=== PATIENT | female | born 1955 | race Caucasian/White ===

== ENCOUNTER 2018-09-10 11:12 | Outpatient (CLI) | payer OTHER, SELFPAY ==
--- NOTE | 2018-09-10 11:05 | DI.RAD_ITS ---
SYMPTOM/DIAGNOSIS: PRE NORBERTO RIGHT HIP: A single AP view of the right hip was obtained. Comparison is made with . At the right hip, there is mild joint space narrowing, subchondral sclerosis and periarticular osteophytes arising from the acetabulum and femoral head. The bones are normally aligned. The soft tissues are unremarkable. Surgical clips are again seen in the right pelvis. IMPRESSION: Limited examination showing osteoarthritis of the right hip.
== END 2018-09-10 11:32 ==
PROVIDERS: PCP Internal Medicine Interventional Cardiology; Visit Provider Student in an Organized Health Care Education/Training Program
DX: M25.551 Pain in right hip (principal); M16.11 Unilateral primary osteoarthritis, right hip
CPT/HCPCS: 73501

== ENCOUNTER 2018-12-20 15:20 | Observation (INO) | payer OTHER, SELFPAY ==
[2018-12-20] VITALS (44 sets, daily range): BP systolic 124–167; BP diastolic 67–82; PULSE 57–81; RESP 9–34; TEMP 36.3–36.8; O2SAT 92–100
--- NOTE | 2018-12-20 15:42 | W.ED.GENAD ---
Discharge Plan Disposition Patient Disposition: [facility] INPATIENT Condition: Good Discharge Details Chief Complaint: Chest Pain Clinical Impression: Chest pain Reason For Visit: chest pain Primary Care Provider: Lawrence Montelongo ED Provider: Daniele Xavier Rotan Meds and New Rx's Prescriptions: No Action rosuvastatin [Crestor] 20 mg tablet 20 mg PO DAILY RF: 0 citalopram 10 mg tablet 10 mg PO DAILY RF: 0 Womens multivitamin 1 tab PO DAILY RF: 0 calcium carbonate 600 MG tablet 600 mg PO DAILY RF: 0 omeprazole [Prilosec] 20 MG capsule,delayed release(DR/EC) 20 mg PO DAILY RF: 0 vitamin B complex 1 EACH capsule 1 ea PO DAILY RF: 0 metoprolol succinate [Toprol XL] 25 MG tablet extended release 24 hr 12.5 mg PO BID RF: 0 temazepam 15 MG capsule 15 mg PO HS Qty: 30 RF: 0 aspirin 325 mg tablet 81 mg PO DAILY RF: 0 tramadol 50 mg tablet 100 mg PO ONCE PRNQty: 30 RF: 0 albuterol sulfate 8.5 GM HFA aerosol inhaler 1 puff .Route PRN PRNRF: 0 gabapentin 300 mg Capsule 300 mg PO HS RF: 0 gabapentin 100 mg Capsule 200 mg PO DAILY AM RF: 0 omeprazole 20 mg Capsule,Delayed Release(Dr/Ec) 20 mg PO HS RF: 0 Medical Decision Making Patient presenting to ED with xiphoid/epigastric pain radiating through to the back, sudden in onset. She does have a history of coronary disease with 2 previous non-STEMI's. She does not have stents. She is recently come off Plavix. Her initial EKG does not show any acute changes. Must consider dissection. Less likely PE. Rule out ACS. IV established. Laboratory studies drawn and sent. CT scan of the chest abdomen pelvis to evaluate for dissection and pulmonary embolus ordered. She was given one sublingual nitroglycerin. The one sublingual nitro resolved all of her pain. There has been no recurrence. Laboratory studies are unremarkable. First troponin is negative. CTA is negative for dissection. There is no evidence of PE. Essentially unremarkable CT scan. Second EKG and troponin are pending. However, given the patient's previous history of atypical presentations with non-STEMI's, I do think she should be admitted overnight for observation and trending. I am going to give her 324 chewable aspirin. Case is discussed with hospitalist, Dr. Rios. Patient accepted for admission. Second EKG is unchanged from one done earlier. Second troponin pending and will follow this up. She remained pain-free here. Medical Records Medical records reviewed: Yes I reviewed the patient's medical records. Lab Data Lab results reviewed: Yes I reviewed the patient's lab results. ECG Data Attestation: I personally reviewed and interpreted this ECG (s) as follows: Prior ECG tracings: available for review Interpretation: #1 - Sinus rhythm at 64. Normal axis and intervals. No acute changes noted. Specifically no hyper acute T waves or mild ST elevation as there was in October 2017. #2-sinus rhythm at 75. Normal axis and intervals. No change compared to earlier today. HPI General Mode of arrival: ambulatory. Date/Time Provider Initiated Documentation: 12/20/18 15:30. Limitations to Documentation: no limitations. Information obtained by: patient and old records reviewed. 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 She developed lower xiphoid/epigastric pain that radiated straight through to the back. It was rather intense when it started and has been waxing and waning since. Pain has been ongoing for about 20 minutes prior to arrival. She does have known coronary disease with 2 previous non-STEMI's but no stents in the past. She has come off Plavix. She continues on statin and beta-janine. She has no associated symptoms and does not feel lightheaded, sweaty, short of breath, nauseated. She feels a little better now than she did when it first started. She has not been ill prior. There is been no fever or cough. Related Data Home Medications Medication Instructions Recorded Confirmed Womens Multivitamin 1 tab PO DAILY 03/07/13 12/20/18 albuterol sulfate 1 puff .ROUTE PRN PRN 08/09/14 11/08/18 calcium carbonate 600 mg PO DAILY 07/02/15 12/20/18 omeprazole [Prilosec] 20 mg PO DAILY 07/02/15 12/20/18 vitamin B complex 1 ea PO DAILY 03/04/17 12/20/18 metoprolol succinate [Toprol Xl] 12.5 mg PO BID tab-cap 07/15/17 12/20/18 temazepam 15 mg PO HS #30 tab-cap 10/30/17 12/20/18 aspirin 325 mg tablet 81 mg PO DAILY tab-cap 11/08/18 12/20/18 citalopram 10 mg tablet 10 mg PO DAILY 11/08/18 12/20/18 rosuvastatin 20 mg tablet 20 mg PO DAILY 11/08/18 12/20/18 tramadol 50 mg tablet 100 mg PO ONCE PRN #30 tab-cap 11/08/18 12/20/18 gabapentin 200 mg PO DAILY AM 12/20/18 12/20/18 gabapentin 300 mg PO HS 12/20/18 12/20/18 omeprazole 20 mg PO HS 12/20/18 12/20/18 Previous Rx's Medication Instructions Recorded temazepam 15 mg PO HS #30 tab-cap 10/30/17 Allergies Allergy/AdvReac Type Severity Reaction Status Date / Time amoxicillin Allergy Intermediate HIVES Unverified 12/20/18 15:34 Penicillins Allergy Intermediate HIVES Unverified 12/20/18 15:34 cephalexin monohydrate Allergy Skin Rash Unverified 12/20/18 15:34 [From Keflex] codeine [Codeine] AdvReac Mild ABDOMINAL Unverified 12/20/18 15:34 PAIN General Stated Complaint: Chest Pain 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: 2 Review of Systems Constitutional Denies chills, Denies fever(s), Denies headache(s), Denies lethargy, Denies malaise, Denies poor appetite and Denies weakness Eyes Denies change in vision and Denies eye pain ENT Denies otalgia, Denies facial pain, Denies headache(s) and Denies neck pain Cardiovascular Reports chest pain, Denies diaphoresis, Denies syncope, Denies pedal edema, Denies lightheadedness and Denies dyspnea Respiratory Denies cough and Denies dyspnea Gastrointestinal Reports abdominal pain, Denies diarrhea, Denies nausea and Denies vomiting Genitourinary Denies dysuria and Denies pelvic pain Musculoskeletal Reports back pain, Denies neck pain and Denies numbness Integumentary/Breasts Denies rash Neurologic Denies syncope, Denies headache(s), Denies focal weakness, Denies numbness, Denies paresthesias and Denies weakness [facility] Medical History Asthma CAD (coronary artery disease) Infiltrating ductal carcinoma of breast, stage 1 Surgical History Breast, Mastectomy Bilateral Cervical Procedure Social History Smoking/Tobacco Use Status: Former Tobacco Use Alcohol Intake: never Drug use: Never Substance use type: does not use Do you feel safe at home: Yes Do you feel safe in your relationship?: Yes Exam Const General: cooperative, uncomfortable and no acute distress Orientation: alert and oriented x3 HENMT Head: normocephalic and atraumatic Neck Neck: normal visual inspection, trachea midline and supple Chest Chest: no tenderness Resp Effort & Inspection: normal respiratory effort Auscultation: clear to auscultation bilaterally Cardio Rate: regular rate Rhythm: regular rhythm Heart Sounds: S1 normal and S2 normal Pulses: normal peripheral pulses GI Inspection: normal to inspection and non-distended Palpation: soft, not firm and nontender Skin Rashes: no rashes Neuro General: alert, oriented x3, no focal motor deficits and CN's II-XI intact bilaterally Cognition: normal cognition Speech: speech normal Extrem General: no pedal edema and no calf tenderness Course Vital Signs Temperature 97.3 F L 12/20/18 15:29 Pulse 68 12/20/18 15:29 Respiratory Rate 20 12/20/18 15:29 Blood Pressure 156/82 H 12/20/18 15:29 Pulse Oximetry 100 12/20/18 15:29 Temperature 97.3 F L 12/20/18 15:29 Temperature Source Tympanic 12/20/18 15:29 Pulse 68 12/20/18 15:29 Respiratory Rate 20 12/20/18 15:29 Respiratory Effort 12/20/18 15:33 Blood Pressure 156/82 H 12/20/18 15:29 Pulse Oximetry 100 12/20/18 15:29 Oxygen Delivery Method Room Air 12/20/18 15:29 Oxygen Flow Rate 0 12/20/18 15:29 Comment 12/20/18 15:29
--- NOTE | 2018-12-20 15:54 | DI.CT_ITS ---
SYMPTOM/DIAGNOSIS: UPPER ABDOMEN/CHEST PAIN RADIATING THROUGH BACK. CT CHEST, ABDOMEN AND PELVIS: The study was carried out with an intravenous injection of 125 cc Omnipaque 350. There is no evidence of pulmonary embolic disease. There is no evidence of an aortic aneurysm or dissection. The lungs are well expanded and clear with no evidence of a mass. There is no pleural effusion or pneumothorax. The heart size is within normal limits. There is no pericardial effusion. A moderate size hiatus hernia is noted. There are no evidence of enlarged lymph nodes. No acute bony abnormality is seen. Incidental note is made of a right breast implant. A 6.8 x 3.6 cm mass in the subcutaneous fat posteriorly on the right side is demonstrated and could I suppose represent a hematoma, infection or neoplasm. SUMMARY: No evidence of PE. No evidence of an aneurysm or aortic dissection. CTA ABDOMEN AND PELVIS: CT angiography was performed with multi slice acquisition and multi planar and 3D reconstruction. Atherosclerotic changes are noted in the aorta. There is no evidence of occlusion involving the mesenteric arteries or celiac access. The renal arteries are intact. The iliac arteries are unremarkable. The liver is unremarkable. There is no evidence of cholelithiasis. There is no evidence of biliary obstruction. The pancreas, spleen and adrenals are unremarkable. The kidneys and stomach appear intact. There is no evidence of obstruction. There is no evidence of an acute appendix. The bladder is normal. The reproductive organs as visualized are intact. There is no evidence of free air or free fluid in the intraperitoneal space. There is no evidence of an abdominal or pelvic mass or adenopathy No acute bony abnormality is seen. SUMMARY: The CTA of the abdomen and pelvis is within normal limits. Please see the above discussion.
[2018-12-20] MEDS: Normal Saline 1,000 ML 150 ML IV (15:56)
[2018-12-20 16:01] LABS: Abs Immature Grans 0.02 k/cumm (0.0-0.09); Absolute Basophil Count 0.03 k/cumm (0.0-0.2); Absolute Lymphocyte Count 3.84 k/cumm (1.2-3.4); Absolute Monocyte Count 0.69 k/cumm (0.11-0.7); Absolute Neutrophil Count 4.65 k/cumm (1.2-6.7); Basophils % 0.3; Eosinophils % 2.1; HCT 40.4 % (36.0-46.0); HGB 13.7 g/dL (12.0-15.5); Immature Grans % 0.2; Lymphocytes % 40.7; Mean Corp. HGB Concentration 33.9 g/dL (32.0-36.0); Mean Corpuscular Hemoglobin 30.9 pg (27.0-33.0); Mean Corpuscular Volume 91.2 fL (80-95); Mean Platelet Volume 10.3 fL (8.0-11.0); Monocytes % 7.3; Neutrophils % 49.4; Platelet Count 180 x1000/uL (130-400); RBC 4.43 m/cumm (4.00-5.20); RBC Distribution Width 12.9 % (11.7-14.6); White Blood Cell Count 9.43 k/cumm (4.4-10.8)
[2018-12-20 16:18] LABS: ALT 25 U/L (12-78); AST 18 U/L (15-37); Alkaline Phosphatase 79 U/L (46-116); Anion Gap 8.7 mmol/L (3-11); BUN 15 mg/dL (7-18); Bilirubin, Total 0.2 mg/dL (0.2-1.0); CO2 28.3 mmol/L (21.0-32.0); CREATININE 0.85 mg/dL (0.55-1.02); Calcium 8.8 mg/dL (8.5-10.1); Chloride 99 mmol/L (98-107); Glucose 89 mg/dL (70-100); Magnesium 2.3 mg/dL (1.8-2.4); Potassium 3.3 mmol/L (3.5-5.1); Sodium 136 mmol/L (136-145); Total Protein 7.3 g/dL (6.4-8.2)
[2018-12-20 16:25] LABS: Troponin I < 0.02 ng/mL (0.00-0.06)
[2018-12-20] MEDS: Omnipaque 350 MG/ML 100 ML BTL IJ (17:15)
[2018-12-20] MEDS: Omnipaque 350 MG/ML 50 ML BTL 25 ML IJ (17:15)
--- NOTE | 2018-12-20 18:31 | DI.VRAD_ITS ---
EXAM: CT Angiography Chest With Contrast EXAM DATE/TIME: 12/20/2018 3:55 PM CLINICAL HISTORY: 63 years old, female; Pain; Chest pain; Abdominal pain; Other: Upper; Patient HX: Upper abd/chest pain radiating through back TECHNIQUE: Axial computed tomographic angiography images of the chest with intravenous contrast using CT angiography protocol. Coronal and sagittal reformatted images were created and reviewed. MIP reconstructed images were created and reviewed. COMPARISON: CR PORTABLE CHEST ONE VIEW 10/22/2017 6:55 AM FINDINGS: Pulmonary arteries: No evidence of pulmonary embolus to the segmental level. Aorta: No aneurysm of the aorta. No dissection of the aorta. Lungs: Normal. No consolidation. No masses. Pleural space: Normal. No pneumothorax. No pleural effusion. Heart: Normal. No cardiomegaly. No pericardial effusion. Mediastinum: Moderate hiatal hernia Lymph nodes: Unremarkable. No enlarged lymph nodes. Bones/joints: Unremarkable. No acute fracture. Soft tissues: Right breast augmentation. 6.8 x 3.6 cm mass in the subcutaneous fat posteriorly on the right. 27 Hounsfield units (2: 38-54). May represent hematoma, infection, neoplasm Impression. IMPRESSION: 1. No evidence of pulmonary embolus to the segmental level. 2. No aneurysm of the aorta. 3. No dissection of the aorta. EXAM: CT Angiography Abdomen and Pelvis With Contrast EXAM DATE/TIME: 12/20/2018 3:55 PM CLINICAL HISTORY: 63 years old, female; Pain; Chest pain; Abdominal pain; Other: Upper; Patient HX: Upper abd/chest pain radiating through back TECHNIQUE: Axial computed tomographic angiography images of the abdomen and pelvis with intravenous contrast material, including non-contrast images if performed. Coronal and sagittal reformatted images were created and reviewed. MIP reconstructed images were created and reviewed. COMPARISON: CR PORTABLE CHEST ONE VIEW 10/22/2017 6:55 AM FINDINGS: VASCULATURE: Aorta: No aortic aneurysm. No aortic dissection. Celiac trunk and mesenteric arteries: No occlusion or significant stenosis. Renal arteries: No occlusion or significant stenosis. Right iliac arteries: No occlusion or significant stenosis. Left iliac arteries: No occlusion or significant stenosis. ABDOMEN: Liver: No mass. Gallbladder and bile ducts: Unremarkable. No calcified stones. No ductal dilation. Pancreas: Unremarkable. No mass. No ductal dilation. Spleen: Unremarkable. No splenomegaly. Adrenals: Unremarkable. No mass. Kidneys and ureters: Unremarkable. No solid mass. No hydronephrosis. Stomach and bowel: Unremarkable. No obstruction. No mucosal thickening. Appendix: No evidence of appendicitis. PELVIS: Bladder: Unremarkable. No mass. Reproductive: Unremarkable as visualized. ABDOMEN and PELVIS: Intraperitoneal space: Unremarkable. No free air. No significant fluid collection. Bones/joints: No acute fracture. No dislocation. Soft tissues: Unremarkable. Lymph nodes: Unremarkable. No enlarged lymph nodes. IMPRESSION: Unremarkable CTA abdomen pelvis. Dictated and Authenticated by: Tena Gotti MD. Ordering:RACHEL Sanabria MD
[2018-12-20 19:32] LABS: Troponin I < 0.02 ng/mL (0.00-0.06)
[2018-12-20] MEDS: Aspirin 81 MG CHEW 324 MG CH (19:40)
[2018-12-20] MEDS: Omeprazole 20 MG CAPCR PO (21:54)
[2018-12-20] MEDS: traMADol 50 MG TAB 100 MG PO (21:55)
[2018-12-20] MEDS: Gabapentin 300 MG CAP PO (21:57)
[2018-12-20] MEDS: Enoxaparin 40 MG/0.4 ML SYR SC (21:57)
[2018-12-20] MEDS: Temazepam 15 MG CAP PO (21:58)
[2018-12-20] MEDS: Normal Saline Flush 10 ML SYR IVP (21:58)
--- NOTE | 2018-12-20 22:34 | HPE_ITS ---
Date of service: 12/20/18 Time of Service: 22:34 Assessment and Plan (1) Atypical chest pain: Current visit: Yes Status: Acute although there is some atypical features to her chest pain and the follow up episode was not chest pain per se, there is concern for coronary spasms given the subtle ST-T changes on repeat EKG's. She has hx of NSTEMI twice now (2013 and Oct 2017) without any hemodynamically significant stenoses. 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 and arrange follow up stress MPI. If MPI is negative then continue aggressive management w/ statins, antiplatelets. consider changing beta janine to calcium channel janine however, I would check with her ice cream freezer assistant first. I do not feel that she needs heparin drip at this point. History of Present Illness Chief Complaint: chest pain Narrative: 63 yr old female w/ PMH of non- obstructive CAD found after NSTEMI in 2013 and again in 2017. Patient has been on medical treatment since her cardiac cath in 2017 at [facility] in [place], [place]. She recently came off her Plavix about a month ago. She follows locally with her ice cream freezer assistant, Dr. Aleyda Morel who cleared her for hip surgery. This afternoon she presented to the ER from her 's office (she works with her , Dr. Bertrand) when she developed acute, sharp subs ternal/epigastric pain that radiated into her back. No associated diaphoresis, nor any neck or jaw pain nor arm pains. Her CP/epigastric pain was alleviated w/ single sublingual nitroglycerin administered in the ER. Total time of her discomfort was around 15 to 20 minutes. Her workup in the ER included two EKG's that failed to show any ischemic ST-T changes and her troponin was negative x two sets in the ER. She was admitted for obseration and to set her up for stress MPI. CTA of the chest was performed and negative for PE or TAA/AAA. After admission to the ICU (admitted to ICU as telemetry patient as none were available on med/surg), she developed some atypical feelings in her torso, that she described as a coolness and out of body sensation along w/ tingling in her arms and chattering of her teeth. There was no chest pain or pressure per se but repeat EKG demonstrated subtle 0.5 mm to [address] depression in inferolateral leads II, aVF, V4-V6. These resolved after two nitroglycerin tablets. She also developed leg spasms (which she has had before and for which she takes gabapentin). She was treated w/ iv valium and also given benadryl in the event that her symptoms may have been related to delayed reaction to the iv contrast for her CTA. She remained free of any chest pain or pressure and her vague feeling of out of body experience and coolness in her torso (from groin up to t he neck) was resolving even before the benadryl and valium were given. Follow up troponin was normal. Review of Systems Review of Systems All systems reviewed & are unremarkable except as noted in HPI and below PFSH Medical History Anxiety disorder (Chronic) Osteoarthritis of hips, bilateral (Chronic) Asthma (Chronic) CAD (coronary artery disease) (Chronic) Infiltrating ductal carcinoma of breast, stage 1 (Inactive) Surgical History Breast, Mastectomy Bilateral Cervical Procedure Family History Other Diabetes Heart disease Personal history of malignant neoplasm Social History Smoking/Tobacco Use Status: Former Tobacco Use Alcohol Intake: former Year quit: 2017 Details: formerly drank 1 glass of wine w/ dinner 3 to 5 night/wk, abstinent 07/2018 Drug use: Never Substance use type: does not use What is your relationship status?: Panel score (0-1 are the most socially isolated patients): 1 Do you feel safe at home: Yes Do you feel safe in your relationship?: Yes Meds Home Medications Medication Instructions Recorded Confirmed Type Womens Multivitamin 1 tab PO DAILY 03/07/13 12/20/18 History albuterol sulfate 1 puff .ROUTE PRN PRN 08/09/14 11/08/18 History calcium carbonate 600 mg PO DAILY 07/02/15 12/20/18 History omeprazole [Prilosec] 20 mg PO DAILY 07/02/15 12/20/18 History vitamin B complex 1 ea PO DAILY 03/04/17 12/20/18 History metoprolol succinate [Toprol Xl] 12.5 mg PO BID tab-cap 07/15/17 12/20/18 History temazepam 15 mg PO HS #30 tab-cap 10/30/17 12/20/18 Rx aspirin 325 mg tablet 81 mg PO DAILY tab-cap 11/08/18 12/20/18 History citalopram 10 mg tablet 10 mg PO DAILY 11/08/18 12/20/18 History rosuvastatin 20 mg tablet 20 mg PO DAILY 11/08/18 12/20/18 History tramadol 50 mg tablet 100 mg PO HS #30 tab-cap 11/08/18 12/20/18 History gabapentin 200 mg PO DAILY AM 12/20/18 12/20/18 History gabapentin 300 mg PO HS 12/20/18 12/20/18 History omeprazole 20 mg PO HS 12/20/18 12/20/18 History Allergies Allergy/AdvReac Type Severity Reaction Status Date / Time amoxicillin Allergy Intermediate HIVES Unverified 12/20/18 15:34 Penicillins Allergy Intermediate HIVES Unverified 12/20/18 15:34 cephalexin monohydrate Allergy Skin Rash Unverified 12/20/18 15:34 [From Keflex] codeine [Codeine] AdvReac Mild ABDOMINAL Unverified 12/20/18 15:34 PAIN Exam Const General: cooperative, healthy appearing, comfortable and well developed Nutritional Appearance: average body habitus Orientation: alert, awake and oriented x3 HENMT Head: normal to inspection, no palpable skull fracture, normocephalic and atraumatic Ears: hearing grossly normal bilaterally Neck Neck: normal visual inspection, full ROM, no lymphadenopathy, supple and no JVD Thyroid: thyroid normal Carotids: normal carotid upstroke Lymphatic: no lymphadenopathy noted Chest Chest: normal inspection of the chest and normal palpation of entire chest wall Breast inspection: other (bilateral breast reconstruction) Resp Effort & Inspection: normal respiratory effort and able to speak in complete sentences Auscultation: clear to auscultation bilaterally Cardio Jugular venous pressure: no JVD Palpation: normal PMI Rate: regular rate Rhythm: regular rhythm Heart Sounds: S1 normal, S2 normal, normal, physiologic split S2, no click, no gallops, no murmurs and no rubs Pulses: normal peripheral pulses GI Inspection: normal to inspection Palpation: soft and no hepatosplenomegaly Percussion: normal to percussion Auscultation: normal bowel sounds Back/Spine/Pelvis Back: no CVA tenderness Cervical Spine: normal cervical lordosis Thoracic/Lumbar Spine: thoracic and lumbar spine normal to inspection Skin General skin exam: no rashes or lesions noted, elasticity normal and turgor normal Neuro General: alert, awake and oriented x3 Cognition: normal cognition Speech: speech normal Motor: muscle tone normal throughout, strength 5/5 throughout and no movement abnormalities noted Sensory Exam: no sensory deficits noted Psych Appearance: grossly normal Mental Status: mental status grossly normal Speech and Movement: speech and movement normal Mood: anxious mood Affect: normal affect Attitude: cooperative Thought Process: normal Thought Content: normal Insight: insight good Judgment: judgment good Results Imaging CT scan - chest: report reviewed (no PE and no aneurysm) Labs : 12/20/18 15:30 12/21/18 06:20 Laboratory Results - last 24 hr 12/20/18 12/20/18 12/20/18 15:30 15:30 19:05 WBC 9.43 RBC 4.43 Hgb 13.7 Hct 40.4 MCV 91.2 MCH 30.9 MCHC 33.9 RDW 12.9 Plt Count 180 MPV 10.3 Immature Gran % 0.2 Neutrophils % 49.4 Lymphocytes % 40.7 Monocytes % 7.3 Eosinophils % 2.1 Basophils % 0.3 Absolute Neutrophils 4.65 Absolute Lymphocytes 3.84 H Absolute Monocytes 0.69 Absolute Eosinophils 0.20 Absolute Basophils 0.03 Sodium 136 Potassium 3.3 L Chloride 99 Carbon Dioxide 28.3 Anion Gap 8.7 BUN 15 Creatinine 0.85 Estimated GFR/1.73 m2 >= 60.00 Glucose 89 Calcium 8.8 Magnesium 2.3 Total Bilirubin 0.2 AST 18 ALT 25 Alkaline Phosphatase 79 Troponin I < 0.02 < 0.02 Total Protein 7.3 Albumin 4.0 Last Vital Signs Temp 36.3 C L 12/20/18 15:29 Pulse 62 12/20/18 17:16 Resp 16 12/20/18 19:50 BP 124/69 12/20/18 17:16 Pulse Ox 97 12/20/18 18:20
[2018-12-20 23:17] LABS: Troponin I < 0.02 ng/mL (0.00-0.06)
[2018-12-20] MEDS: diphenhydrAMINE 50 MG/ML VIAL 25 MG IVP (23:24)
[2018-12-21] VITALS (71 sets, daily range): BP systolic 127–148; BP diastolic 57–83; PULSE 59–119; RESP 10–30; TEMP 36.6; O2SAT 98
[2018-12-21] MEDS: Potassium Chloride 20 MEQ TABCR 40 MEQ PO (00:34)
--- NOTE | 2018-12-21 01:02 | NUR.NOTE ---
2225-pt was with Dr. Rios sitting in a chair while he did his admission assessment and started to c/o feeling very odd, flushed-like with waves of nausea but did not have chest pain. Stated it was hard to describe the way she was feeling. Pt assisted to bed and laid with head of bed flat. VS taken and were not changed. ekg done, 1 sl NTG given with no relief. 12.5 mg of iv phenergan given at 2255. Pt medicated with 25mg iv benedryl and 2mg of iv valium and started to get relief. a second ekg was done. Pt got oob with steady gait and voided 475cc's clear, light colored yellow urine on commode. Pt went back to bed with relief from above symptoms
[2018-12-21] MEDS: Gabapentin 100 MG CAP 200 MG PO (06:44)
[2018-12-21 06:57] LABS: Anion Gap 8.7 mmol/L (3-11); BUN 11 mg/dL (7-18); CO2 27.3 mmol/L (21.0-32.0); CREATININE 0.73 mg/dL (0.55-1.02); Calcium 8.6 mg/dL (8.5-10.1); Chloride 107 mmol/L (98-107); Glucose 93 mg/dL (70-100); Magnesium 2.2 mg/dL (1.8-2.4); Potassium 4.2 mmol/L (3.5-5.1); Sodium 143 mmol/L (136-145)
[2018-12-21 07:04] LABS: Hemoglobin A1C 6.1 % (4.5-6.2)
[2018-12-21 08:24] LABS: Troponin I < 0.02 ng/mL (0.00-0.06)
[2018-12-21] MEDS: Multivitamin TAB 1 TAB PO (09:14)
[2018-12-21] MEDS: Calcium Carbonate 1.5 GM TAB PO (09:14)
[2018-12-21] MEDS: Rosuvastatin 10 MG TAB 20 MG PO (09:14)
[2018-12-21] MEDS: Metoprolol CR 25 MG TABCR 12.5 MG PO (09:15)
[2018-12-21] MEDS: Vitamins B Comp w/C TAB 1 TAB PO (09:15)
[2018-12-21] MEDS: Citalopram 10 MG TAB PO (09:15)
[2018-12-21] MEDS: Aspirin E.C. 81 MG TABEC PO (09:30)
--- NOTE | 2018-12-21 11:35 | PDOC.CMIN ---
- If Service Date Differs Date of service: 12/21/18 Time of Service: 11:35 Care Management Initial Assess REASON FOR HOSPITALIZATION:: Chest pain PAST MEDICAL HISTORY/PAST SURGICAL HISTORY:: Medical hx: Anxiety disorder (Chronic),Osteoarthritis of hips, bilateral (Chronic), Asthma (Chronic),CAD (coronary artery disease) (Chronic),Infiltrating ductal carcinoma of breast, stage 1 (Inactive)Breast). Surgical Hx: Mastectomy Bilateral, Cervical Procedure. PREVIOUS FUNCTIONAL STATUS/SOCIAL/FAMILY SUPPORTS:: Ariadna is a 63 year old female who lives with her spouse in [place], [place]. Dr.David Bertrand is her support person and spouse. 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 She is independent with ADL's, transportaion she currently cares for four clients in the home. CURRENT FUNCTIONAL STATUS:: Ariadna is engaged during assessment.She is sitting up in the chair reading when CM enters the room. She states that her chest pain started yesterday and that she was concerned it was cardiac in nature. She understands her current plan of care today,and is hopeful she will be discharged today. She has regular cardiology follow up. She denies the need for any addtional services. ADVANCE DIRECTIVES:: On file at [facility] - agent Dr.David Bertrand Has patient been provided with information about the portal?: Yes Did the patient sign up for the portal?: No CODE STATUS:: Full Code INSURANCE COVERAGE / FINANCIAL ISSUES:: Health plans inc CURRENT HOME/COMMUNITY SERVICES/EQUIPMENT:: Outpatient cardiology PRIMARY CARE PHYSICIAN:: POTENTIAL DISCHARGE NEEDS:: Follow up appointment scheduled prior to discharge with primary care and cardiology. PATIENT/FAMILY EDUCATION NEEDS:: Discharge education, limitations, and follow up plan of care ask me three education and self managment. ANTICIPATED BARRIERS TO DISCHARGE:: No barriers identified TRANSPORTATION:: Via private car with spouse at time of discharge. PLAN:: Ariadna is being cared for in the ICU, she remains on telemetry. Anticipate she will be discharged home today after consult with cardiology. Anticipate no additional services at time of discharge. CM to continue to provide support to patient discharge planning.
--- NOTE | 2018-12-21 16:05 | W.PM.PROGNOT ---
Date of Service Date of service: 12/21/18 Time of Service: 16:05 Assessment and Plan (1) Atypical chest pain: Current visit: Yes Status: Acute Somewhat atypical chest pain in patient with known history of CAD. Remains asymptomatic at this time, and has ruled out with serial cardiac biomarkers. Given her history had discussion with her special effects technician, with plans for a nuclear treadmill stress test - due to lack of availability of cardiology today, will occur first thing tomorrow morning. Continue to monitor on telemetry, and continue daily aspirin, BB, and high potency statin. Subjective Interval history since last seen: Very pleasant 63 year old woman with a prior medical history significant for CAD with 2 prior spisodes of NSTEMI, admitted 12/20 from [facility] Emergency Department with a complaint of Chest Pain. Mrs. Watts has a history of CAD - she originally suffered an NSTEMI in 2013, for which she was evaluated at [facility], and again in October of 2017, after which she had a catheterization repeated at [facility]. She and her who is a local physician report that there was significant disease in a small vessel (PDA by records, well collateralized) which appeared worsened on repeat cath in 2018. While no intervention was taken on this vessel, she was maintained on DAPT, with Clopidogrel discontinued recently after a 12 month course. She was seen in the ED following development of an acute, sharp, substernal/epigastric pain with radiation into her back. Her workup included essentially normal labs, and a normal CTA of the chest, abdomen, and pelvis. Her EKG showed abnormal appearance of ST segments in V1/V2 , and J Point elevations also seen on prior tracings. Her troponins were trended and remained undetectable. She also developed an unsual sensation which she described as a coolness of her torso and feeling of impending doom overnight, along with LE spasms that completely dissipated even prior to administration of Benadryl and Valium. Her am troponin was again negative, and there was concern regarding potential reaction to IV contrast received at time of her imaging. This morning the patient has no complaints and appears well. No other overnight events reported. Remains afebrile. Objective Objective Clinical Data: Abnormal lab results 12/20/18 12/20/18 Range/Units 15:30 15:30 Absolute Lymphocytes 3.84 H (1.2-3.4) k/cumm Potassium 3.3 L (3.5-5.1) mmol/L Vital Signs Temperature 36.6 C 12/21/18 00:05 Temperature Source Temporal Artery Scan 12/21/18 00:05 Pulse 60 12/21/18 08:44 Pulse Rhythm Regular 12/21/18 15:39 Pulse 68 12/21/18 14:30 Respiratory Rate 16 12/21/18 14:30 Respiratory Effort 12/21/18 15:39 Respiratory Depth Normal 12/21/18 15:39 Respiratory Pattern Normal 12/21/18 15:39 Blood Pressure 148/83 H 12/21/18 08:44 Blood Pressure Mean 98 12/21/18 08:44 Blood Pressure Position Supine 12/20/18 20:30 Pulse Oximetry 98 12/21/18 00:05 Oxygen Delivery Method Room Air 12/21/18 00:05 Oxygen Flow Rate 0 12/21/18 00:05 Pain Level 0 12/21/18 00:05 Comment 12/20/18 23:30 Intake & Output 12/20/18 12/21/18 12/21/18 23:59 11:59 23:59 Intake Total 290.5 / 290.5 500 / 500 Output Total 800 / 800 1950 / 1950 Balance -509.5 / -509.5 -1450 / -1450 Weight 80.5 kg 81 kg Intake: IV 50.5 / 50.5 Oral 240 / 240 500 / 500 Output: Urine 800 / 800 1950 / 1950 Other: Urine Color Pale Pale Yellow Yellow Urine Appearance Clear Clear Clear Urine Odor None None Comment h/o bilateral breast cancer Voiding Methods Bedside Commode Bedside Commode Laboratory Results WBC 9.43 k/cumm (4.4-10.8) 12/20/18 15:30 RBC 4.43 m/cumm (4.00-5.20) 12/20/18 15:30 Hgb 13.7 g/dL (12.0-15.5) 12/20/18 15:30 Hct 40.4 % (36.0-46.0) 12/20/18 15:30 MCV 91.2 fL (80-95) 12/20/18 15:30 MCH 30.9 pg (27.0-33.0) 12/20/18 15:30 MCHC 33.9 g/dL (32.0-36.0) 12/20/18 15:30 RDW 12.9 % (11.7-14.6) 12/20/18 15:30 Plt Count 180 x1000/uL (130-400) 12/20/18 15:30 MPV 10.3 fL (8.0-11.0) 12/20/18 15:30 Immature Gran % 0.2 12/20/18 15:30 Neutrophils % 49.4 12/20/18 15:30 Lymphocytes % 40.7 12/20/18 15:30 Monocytes % 7.3 12/20/18 15:30 Eosinophils % 2.1 12/20/18 15:30 Basophils % 0.3 12/20/18 15:30 Absolute Neutrophils 4.65 k/cumm (1.2-6.7) 12/20/18 15:30 Absolute Lymphocytes 3.84 k/cumm (1.2-3.4) H 12/20/18 15:30 Absolute Monocytes 0.69 k/cumm (0.11-0.7) 12/20/18 15:30 Absolute Eosinophils 0.20 k/cumm (0.0-0.7) 12/20/18 15:30 Absolute Basophils 0.03 k/cumm (0.0-0.2) 12/20/18 15:30 Sodium 143 mmol/L (136-145) 12/21/18 06:20 Potassium 4.2 mmol/L (3.5-5.1) D 12/21/18 06:20 Chloride 107 mmol/L (98-107) 12/21/18 06:20 Carbon Dioxide 27.3 mmol/L (21.0-32.0) 12/21/18 06:20 Anion Gap 8.7 mmol/L (3-11) 12/21/18 06:20 BUN 11 mg/dL (7-18) 12/21/18 06:20 Creatinine 0.73 mg/dL (0.55-1.02) 12/21/18 06:20 Estimated GFR/1.73 m2 >= 60.00 (mL/min/1.73m2) 12/21/18 06:20 Glucose 93 mg/dL (70-100) 12/21/18 06:20 Hemoglobin A1c 6.1 % (4.5-6.2) 12/21/18 06:20 Calcium 8.6 mg/dL (8.5-10.1) 12/21/18 06:20 Magnesium 2.2 mg/dL (1.8-2.4) 12/21/18 06:20 Total Bilirubin 0.2 mg/dL (0.2-1.0) 12/20/18 15:30 AST 18 U/L (15-37) 12/20/18 15:30 ALT 25 U/L (12-78) 12/20/18 15:30 Alkaline Phosphatase 79 U/L (46-116) 12/20/18 15:30 Troponin I < 0.02 ng/mL (0.00-0.06) 12/21/18 06:20 Total Protein 7.3 g/dL (6.4-8.2) 12/20/18 15:30 Albumin 4.0 g/dL (3.4-5.0) 12/20/18 15:30
--- NOTE | 2018-12-21 16:16 | PGE_ITS ---
Date of Service Date of service: 12/21/18 Time of Service: 16:05 Assessment and Plan (1) Atypical chest pain: Current visit: Yes Status: Acute Somewhat atypical chest pain in patient with known history of CAD. Remains asymptomatic at this time, and has ruled out with serial cardiac biomarkers. Given her history had discussion with her condominium manager, with plans for a nuclear treadmill stress test - due to lack of availability of cardiology today, will occur first thing tomorrow morning. Continue to monitor on telemetry, and continue daily aspirin, BB, and high potency statin. Subjective Interval history since last seen: Very pleasant 63 year old woman with a prior medical history significant for CAD with 2 prior spisodes of NSTEMI, admitted 12/20 from [facility] Emergency Department with a complaint of Chest Pain. Mrs. Watts has a history of CAD - she originally suffered an NSTEMI in 2013, for which she was evaluated at [facility], and again in October of 2017, after which she had a catheterization repeated at [facility]. She and her who is a local physician report that there was significant disease in a small vessel (PDA by records, well collateralized) which appeared worsened on repeat cath in 2018. While no intervention was taken on this vessel, she was maintained on DAPT, with Clopidogrel discontinued recently after a 12 month course. She was seen in the ED following development of an acute, sharp, substernal/epigastric pain with radiation into her back. Her workup included essentially normal labs, and a normal CTA of the chest, abdomen, and pelvis. Her EKG showed abnormal appearance of ST segments in V1/V2 , and J Point elevations also seen on prior tracings. Her troponins were trended and remained undetectable. She also developed an unsual sensation which she described as a coolness of her torso and feeling of impending doom overnight, along with LE spasms that completely dissipated even prior to administration of Benadryl and Valium. Her am troponin was again negative, and there was concern regarding potential reaction to IV contrast received at time of her imaging. This morning the patient has no complaints and appears well. No other overnight events reported. Remains afebrile. Objective Objective Clinical Data: Abnormal lab results 12/20/18 12/20/18 Range/Units 15:30 15:30 Absolute Lymphocytes 3.84 H (1.2-3.4) k/cumm Potassium 3.3 L (3.5-5.1) mmol/L Vital Signs Temperature 36.6 C 12/21/18 00:05 Temperature Source Temporal Artery Scan 12/21/18 00:05 Pulse 60 12/21/18 08:44 Pulse Rhythm Regular 12/21/18 15:39 Pulse 68 12/21/18 14:30 Respiratory Rate 16 12/21/18 14:30 Respiratory Effort 12/21/18 15:39 Respiratory Depth Normal 12/21/18 15:39 Respiratory Pattern Normal 12/21/18 15:39 Blood Pressure 148/83 H 12/21/18 08:44 Blood Pressure Mean 98 12/21/18 08:44 Blood Pressure Position Supine 12/20/18 20:30 Pulse Oximetry 98 12/21/18 00:05 Oxygen Delivery Method Room Air 12/21/18 00:05 Oxygen Flow Rate 0 12/21/18 00:05 Pain Level 0 12/21/18 00:05 Comment 12/20/18 23:30 Intake & Output 12/20/18 12/21/18 12/21/18 23:59 11:59 23:59 Intake Total 290.5 / 290.5 500 / 500 Output Total 800 / 800 1950 / 1950 Balance -509.5 / -509.5 -1450 / -1450 Weight 80.5 kg 81 kg Intake: IV 50.5 / 50.5 Oral 240 / 240 500 / 500 Output: Urine 800 / 800 1950 / 1950 Other: Urine Color Pale Pale Yellow Yellow Urine Appearance Clear Clear Clear Urine Odor None None Comment h/o bilateral breast cancer Voiding Methods Bedside Commode Bedside Commode Laboratory Results WBC 9.43 k/cumm (4.4-10.8) 12/20/18 15:30 RBC 4.43 m/cumm (4.00-5.20) 12/20/18 15:30 Hgb 13.7 g/dL (12.0-15.5) 12/20/18 15:30 Hct 40.4 % (36.0-46.0) 12/20/18 15:30 MCV 91.2 fL (80-95) 12/20/18 15:30 MCH 30.9 pg (27.0-33.0) 12/20/18 15:30 MCHC 33.9 g/dL (32.0-36.0) 12/20/18 15:30 RDW 12.9 % (11.7-14.6) 12/20/18 15:30 Plt Count 180 x1000/uL (130-400) 12/20/18 15:30 MPV 10.3 fL (8.0-11.0) 12/20/18 15:30 Immature Gran % 0.2 12/20/18 15:30 Neutrophils % 49.4 12/20/18 15:30 Lymphocytes % 40.7 12/20/18 15:30 Monocytes % 7.3 12/20/18 15:30 Eosinophils % 2.1 12/20/18 15:30 Basophils % 0.3 12/20/18 15:30 Absolute Neutrophils 4.65 k/cumm (1.2-6.7) 12/20/18 15:30 Absolute Lymphocytes 3.84 k/cumm (1.2-3.4) H 12/20/18 15:30 Absolute Monocytes 0.69 k/cumm (0.11-0.7) 12/20/18 15:30 Absolute Eosinophils 0.20 k/cumm (0.0-0.7) 12/20/18 15:30 Absolute Basophils 0.03 k/cumm (0.0-0.2) 12/20/18 15:30 Sodium 143 mmol/L (136-145) 12/21/18 06:20 Potassium 4.2 mmol/L (3.5-5.1) D 12/21/18 06:20 Chloride 107 mmol/L (98-107) 12/21/18 06:20 Carbon Dioxide 27.3 mmol/L (21.0-32.0) 12/21/18 06:20 Anion Gap 8.7 mmol/L (3-11) 12/21/18 06:20 BUN 11 mg/dL (7-18) 12/21/18 06:20 Creatinine 0.73 mg/dL (0.55-1.02) 12/21/18 06:20 Estimated GFR/1.73 m2 >= 60.00 (mL/min/1.73m2) 12/21/18 06:20 Glucose 93 mg/dL (70-100) 12/21/18 06:20 Hemoglobin A1c 6.1 % (4.5-6.2) 12/21/18 06:20 Calcium 8.6 mg/dL (8.5-10.1) 12/21/18 06:20 Magnesium 2.2 mg/dL (1.8-2.4) 12/21/18 06:20 Total Bilirubin 0.2 mg/dL (0.2-1.0) 12/20/18 15:30 AST 18 U/L (15-37) 12/20/18 15:30 ALT 25 U/L (12-78) 12/20/18 15:30 Alkaline Phosphatase 79 U/L (46-116) 12/20/18 15:30 Troponin I < 0.02 ng/mL (0.00-0.06) 12/21/18 06:20 Total Protein 7.3 g/dL (6.4-8.2) 12/20/18 15:30 Albumin 4.0 g/dL (3.4-5.0) 12/20/18 15:30
[2018-12-21] MEDS: Gabapentin 300 MG CAP PO (18:02)
[2018-12-21] MEDS: Normal Saline Flush 10 ML SYR IVP (20:04)
[2018-12-21] MEDS: Omeprazole 20 MG CAPCR PO (21:51)
[2018-12-21] MEDS: Enoxaparin 40 MG/0.4 ML SYR SC (21:51)
[2018-12-21] MEDS: traMADol 50 MG TAB 100 MG PO (21:51)
[2018-12-21] MEDS: Temazepam 15 MG CAP PO (21:52)
[2018-12-22] VITALS (34 sets, daily range): BP systolic 122–128; BP diastolic 69–83; PULSE 56–92; RESP 11–25; TEMP 35.8–36.6; O2SAT 97–99
[2018-12-22] MEDS: Normal Saline Flush 10 ML SYR IVP (03:29)
[2018-12-22] MEDS: Gabapentin 100 MG CAP 200 MG PO (05:20)
[2018-12-22] MEDS: Acetaminophen 325 MG TAB PO (05:20)
--- NOTE | 2018-12-22 08:02 | CMDISCH_ITS ---
- If Service Date Differs Date of service: 12/22/18 Time of Service: 08:01 LACE Index Scoring Tool - Questions: Length of Stay (in days): 3 Acuity (Admit via E.D.?): Yes Comorbidities: Previous M.I. E.D. Visits: 2 - Answers: Total Score: 9 Risk of Readmission: Low Risk Care Management Discharge Reason for Hospitalization: Chest pain Discharge Plan: Home with no addtional services she will follow up with cardiology as directed. Ariadna will have a echocardiagram as an outpatient. She is looking forward to returning home her spouse is present at the bedside. No additional services at this time. Patient/Family Education Needs: Discharge education, limitations and follow up plan of care. Ask me three education and self managment. Ariadna states she walks everyday. 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
[2018-12-22] MEDS: Vitamins B Comp w/C TAB 1 TAB PO (08:30)
[2018-12-22] MEDS: Multivitamin TAB 1 TAB PO (08:31)
[2018-12-22] MEDS: Citalopram 10 MG TAB PO (08:31)
[2018-12-22] MEDS: Aspirin E.C. 81 MG TABEC PO (08:31)
[2018-12-22] MEDS: Calcium Carbonate 1.5 GM TAB PO (08:31)
[2018-12-22] MEDS: Rosuvastatin 10 MG TAB 20 MG PO (08:31)
--- NOTE | 2018-12-22 08:53 | W.CARDCONSUL ---
Date of service: 12/22/18 Assessment and Plan (1) CAD (coronary artery disease): Current visit: Yes Status: Chronic Atypical chest pain. Etiology includes musculoskeletal, esophageal spasm and vasospasm. Currently chest pain-free. No evidence of ongoing ischemia. Electrically stable. No evidence of heart failure. Normotensive. Agree with stress test. This should be an exercise treadmill stress test with myocardial perfusion imaging. If at least moderate ischemia consider outpatient cardiac catheterization. Continue aspirin 81 mg daily, metoprolol succinate 12.5 mill grams twice daily, and rosuvastatin 20 mg daily. Obtain up-to-date lipid profile and adjust lipid-lowering therapy to achieve LDL of less than 100, ideally less than 70. Follow-up with primary measurement operator Dr. Rothman if abnormal stress test otherwise with PCP. History of Present Illness Chief Complaint: Chest pain Narrative: 63-year-old woman with breast cancer status post bilateral mastectomy coronary artery disease. 2013 non-STEMI. Left main normal, LAD normal, left circumflex normal distal RCA/RPDA COMMISSIONING AGENT with distal flow via LAD. October 2017 and STEMI. Left main normal, LAD minor luminal irregularities, septal minor luminal irregualrities, left circumflex minor luminal irregularities, RCA mild luminal irregularities, COMMISSIONING AGENT no longer present. EF 55%, no wall motion abnormalities. No PCI performed. Yesterday sudden onset of sharp central chest pain with radiation to the back. Not related to inspiration, position or movement. Pain subsided after 40 minutes with nitro. EKG without ischemic changes. Serial troponins negative. Scheduled for inpatient stress test. Currently chest pain-free. Patient walks daily and has not experienced any chest pain doing her walks. Her functional capacity is in part limited due to hip pain. She is to undergo hip replacement surgery. She denies shortness of breath, PND, limitations, syncope, claudication, focal deficits, bleeding, GI or symptoms. ROS: 10 point ROS was performed; all pertinent positives as mentioned in HPI, all others negative. Allergies reviewed. Medications reviewed. Cardiac medications include aspirin 81 mg daily, metoprolol succinate 12.5 mg twice daily and rosuvastatin 20 mg daily. PFSH reviewed; pertinent history as mentioned HPI. Social history: Non-smoker. No alcohol. Family history: No premature coronary artery disease. PHYSICAL EXAM General: pleasant, no acute distress HEENT: Anicteric, mucus membranes moist Neck: Supple, normal JVP, brisk carotid upstrokes, no bruits Chest: Non-tender Lungs: Clear to auscultation bilaterally, no crackles or wheezes Cardiac: Regular rate, regular rhythm, normal S1S2, no murmurs Abdomen: Soft, non-tender, bowel sounds present Extremities: No clubbing, cyanosis or edema, equal pulses in all 4 extremities Skin: Warm and dry, no rashes Neuro: Alert and oriented x3, grossly intact Data: Available records including laboratory and cardiac studies reviewed; pertinent findings as mentioned HPI.. 2018 angiogram independently visualized. Consults Consult date: 12/22/18 Requesting physician: Arley Rios [facility] Medical History Anxiety disorder (Chronic) Osteoarthritis of hips, bilateral (Chronic) Asthma (Chronic) CAD (coronary artery disease) (Chronic) Infiltrating ductal carcinoma of breast, stage 1 (Inactive) Surgical History Breast, Mastectomy Bilateral Cervical Procedure Family History Other Diabetes Heart disease Personal history of malignant neoplasm Social History Smoking/Tobacco Use Status: Former Tobacco Use Alcohol Intake: former Year quit: 2017 Details: formerly drank 1 glass of wine w/ dinner 3 to 5 night/wk, abstinent 07/2018 Drug use: Never Substance use type: does not use What is your relationship status?: Panel score (0-1 are the most socially isolated patients): 1 Do you feel safe at home: Yes Do you feel safe in your relationship?: Yes Results Last Vital Signs Temp 36.6 C 12/22/18 03:45 Pulse 56 L 12/22/18 03:27 Resp 12 12/22/18 03:30 BP 128/72 12/22/18 03:27 Pulse Ox 98 12/21/18 20:30 Labs : 12/20/18 15:30 12/21/18 06:20
--- NOTE | 2018-12-22 09:05 | CCONE_ITS ---
Date of service: 12/22/18 Assessment and Plan (1) CAD (coronary artery disease): Current visit: Yes Status: Chronic Atypical chest pain. Etiology includes musculoskeletal, esophageal spasm and vasospasm. Currently chest pain-free. No evidence of ongoing ischemia. Electrically stable. No evidence of heart failure. Normotensive. Agree with stress test. This should be an exercise treadmill stress test with myocardial perfusion imaging. If at least moderate ischemia consider outpatient cardiac catheterization. Continue aspirin 81 mg daily, metoprolol succinate 12.5 mill grams twice daily, and rosuvastatin 20 mg daily. Obtain up-to-date lipid profile and adjust lipid-lowering therapy to achieve LDL of less than 100, ideally less than 70. Follow-up with primary employment director Dr. Rothman if abnormal stress test other burden with PCP. History of Present Illness Chief Complaint: Chest pain Narrative: 63-year-old woman with breast cancer status post bilateral mastectomy coronary artery disease. 2013 non-STEMI. 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 October 2017 and STEMI. Left main normal, LAD minor luminal irregularities, septal minor luminal irregualrities, left circumflex minor luminal irregularities, RCA mild luminal irregularities, MARKETING SUPPORT SPECIALIST no longer present. EF 55%, no wall motion abnormalities. No PCI performed. Yesterday sudden onset of sharp central chest pain with radiation to the back. Not related to inspiration, position or movement. Pain subsided after 40 minutes with nitro. EKG without ischemic changes. Serial troponins negative. Scheduled for inpatient stress test. Currently chest pain-free. Patient walks daily and has not experienced any chest pain doing her walks. Her functional capacity is in part limited due to hip pain. She is to undergo hip replacement surgery. She denies shortness of breath, PND, limitations, syncope, claudication, focal deficits, bleeding, GI or symptoms. ROS: 10 point ROS was performed; all pertinent positives as mentioned in HPI, all others negative. Allergies reviewed. Medications reviewed. Cardiac medications include aspirin 81 mg daily, metoprolol succinate 12.5 mg twice daily and rosuvastatin 20 mg daily. PFSH reviewed; pertinent history as mentioned HPI. Social history: Non-smoker. No alcohol. Family history: No premature coronary artery disease. PHYSICAL EXAM General: pleasant, no acute distress HEENT: Anicteric, mucus membranes moist Neck: Supple, normal JVP, brisk carotid upstrokes, no bruits Chest: Non-tender Lungs: Clear to auscultation bilaterally, no crackles or wheezes Cardiac: Regular rate, regular rhythm, normal S1S2, no murmurs Abdomen: Soft, non-tender, bowel sounds present Extremities: No clubbing, cyanosis or edema, equal pulses in all 4 extremities Skin: Warm and dry, no rashes Neuro: Alert and oriented x3, grossly intact Data: Available records including laboratory and cardiac studies reviewed; pertinent findings as mentioned HPI.. 2018 angiogram independently visualized. Consults Consult date: 12/22/18 Requesting physician: Arley Rios [facility] Medical History Anxiety disorder (Chronic) Osteoarthritis of hips, bilateral (Chronic) Asthma (Chronic) CAD (coronary artery disease) (Chronic) Infiltrating ductal carcinoma of breast, stage 1 (Inactive) Surgical History Breast, Mastectomy Bilateral Cervical Procedure Family History Other Diabetes Heart disease Personal history of malignant neoplasm Social History Smoking/Tobacco Use Status: Former Tobacco Use Alcohol Intake: former Year quit: 2017 Details: formerly drank 1 glass of wine w/ dinner 3 to 5 night/wk, abstinent 07/2018 Drug use: Never Substance use type: does not use What is your relationship status?: Panel score (0-1 are the most socially isolated patients): 1 Do you feel safe at home: Yes Do you feel safe in your relationship?: Yes Results Last Vital Signs Temp 36.6 C 12/22/18 03:45 Pulse 56 L 12/22/18 03:27 Resp 12 12/22/18 03:30 BP 128/72 12/22/18 03:27 Pulse Ox 98 12/21/18 20:30 Labs : 12/20/18 15:30 12/21/18 06:20
--- NOTE | 2018-12-22 10:45 | MERGEMPI_ITS ---
*[facility]* *[facility]* [address] [place] [address] Myocardial Perfusion Imaging - SPECT Vinicio protocol Date of study: 12/22/2018 (Report amended ) *PATIENT PRESENTATION* Height: 166.4cm (65.5in) Blood Pressure: Weight: 36.8kg (81lb) BSA: 1.28m^2 Referring physician: Reed Olvera Ordering physician: Reed Olvera Impressions: - Normal perfusion by Tc99m Sestamibi Imaging. - Abnormal contraction consistent with cardiomyopathy. Summary: 1. Myocardial perfusion imaging: No myocardial perfusion defects noted. 2. The calculated left ventricular ejection fraction after stress: 41%. LV global systolic function is mild to moderately reduced. Diffuse left ventricular regional motion abnormalities. There is mild hypokinesis involving the inferior wall(s) of the left ventricle. 3. Stress ECG conclusions: The stress ECG is negative. 4. Stress: The target heart rate was achieved. There is a normal resting blood pressure with an appropriate response to stress. The patient experienced no chest pain during stress. Exercise capacity is average for age. 5. Treadmill exercise testing was performed using the Vinicio protocol. The patient exercised for 6 min 32 sec, to protocol stage 3, to a maximal work rate of 7.9mets. Exercise was terminated due to hip pain. Recommendations: 1. Transthoracic echocardiography should be performed in order to evaluate LV function. 2. Outptient cardiology follow up. Indication: R07.9, Appropriate Use Criteria: A (Appropriate). History: REASON FOR TESTING: PATIENT PRESENTED TO THE ER 12/20/18 WITH SUDDEN ONSET OF XIPHOID/EPIGASTRIC CHEST PAIN RADIATING THROUGH TO HER BACK, WITH NO ASSOCIATED SYMPTOMS. HER CHEST PAIN WAS RELEIVED WITH 1 SUBLINGUAL NITRO. TROPONIN LEVELS WERE NEGATIVE. SHE DENIES CHEST PAIN UPON ARRIVAL TO TESTING TODAY. SIGNIFICANT PAST MEDICAL HISTORY: HISTORY OF CAD WITH 2 PREVIOUS NON-STEMI'S. SMOKING STATUS: QUIT 1981. SMOKED FOR 6 YEARS 10/06 PPD. EXERCISE ROUTINE: SHE STRETCHES AND WALKS A MILE EVERY DAY. ALSO WALKS MANY FLIGHTS OF STAIRS EVERY DAY. Risk factors: Family history of coronary artery disease. Hypertension. Dyslipidemia. Cholesterol: 219mg/dl. HDL: 85mg/dl. LDL: 129mg/dl. Triglycerides: 84mg/dl. ALLERGIES: AMOXICILLIN, PENICILLIN, KEFLEX, CODEINE. MEDICATIONS: WOMENS MULTIVITAMIN DAILY, ALBUTEROL SULFATE 1 PUFF PRN, CALCIUM CARBONATE 1200 MG DAILY, VITAMIN B COMPLEX DAILY, TOPROL XL 12.5 MG BID, TEMAZEPAM 15 MG HS, ASPIRIN 81 MG DAILY, CITALOPRAM 10 DAILY, ROSUVASTATIN 20 MG DAILY, TRAMADOL 100 MG PRN, GABAPENTIN 200 MG DAILY AM, GABAPENTIN 300 MG HS, OMEPRAZOLE 20 MG HS. Imaging Technique: Protocol: Vinicio protocol. Acquisition: Gated SPECT; 1 day - rest/stress. The patient was imaged in the supine position. Attenuation correction used. Isotope administration: - Rest. Tc[99m]-sestamibi. Dose: 10.3mCi. Injection time: 10:45 AM. Injection to stress time: 00:45. - Stress. Tc[99m]-sestamibi. Dose: 31.3mCi. Injection time: 01:45 PM. 1-2 min before end of exercise Baseline ECG: SINUS BRADYCARDIA. 56 BPM. Sinus bradycardia. Stress protocol: + +---+ + !Stage !HR !BP (mmHg) ! + +---+ + !Baseline supine !56 !140/90 (107)! + +---+ + !Baseline standing !68 !124/90 (101)! + +---+ + !Stage I; 1.7mph, 10degrees; 3 min !106!180/90 (120)! + +---+ + !Stage II; 2.5mph, 12degrees; 3 min!141! ! + +---+ + !Peak stress !150! ! + +---+ + !Recovery; 1 min !124!210/80 (123)! + +---+ + !Recovery; 3 min !75 !150/80 (103)! + +---+ + !Recovery; 6 min !75 !140/78 (99) ! + +---+ + * Stress results: STRESS TEST ENDED IN 6 MINUTES 32 SECONDS DUE TO SOB, FATIGUE, AND HIP DISCOMFORT. NORMAL HEART RATE AND BLOOD PRESSURE RESPONSE TO EXERCISE. MAX HEART RATE: 150 94 % OF TARGET HEART RATE ACHIEVED. MET'S: 7.86 NO ECTOPY. NO ANGINA. NO SIGNIFICANT ST SEGMENT CHANGES. FUNCTIONAL CAPACITY: AVERAGE CAPACITY. Maximal heart rate during stress was 150bpm (95% of maximal predicted heart rate). The maximal predicted heart rate was 158bpm. The target heart rate was achieved. There is a normal resting blood pressure with an appropriate response to stress. The rate-pressure product for the peak heart rate and blood pressure was 73499ez Hg/min. The patient experienced no chest pain during stress. Exercise capacity is average for age. Stress ECG: The stress ECG is negative. Hernandez treadmill score: 7. This score predicts a low risk of cardiac events. Myocardial perfusion: Imaging information: gated. The image quality was good. Left ventricular size is normal. No myocardial perfusion defects noted. Ventricular Function (Wall Motion): The calculated left ventricular ejection fraction after stress: 41%. LV global systolic function is mild to moderately reduced. Diffuse left ventricular regional motion abnormalities. There is mild hypokinesis involving the inferior wall(s) of the left ventricle. Study data: Jevon Estrada MD supervised and was readily available during the procedure. This study was interpreted by [facility]. Study status: Routine. Consent: The risks, benefits, and alternatives to the procedure were explained to the patient and informed consent was obtained. Procedure: Initial setup. A baseline ECG was recorded. Surface ECG leads and manual cuff blood pressure measurements were monitored. Heart sounds: Normal. Lung sounds: Normal. Treadmill exercise testing was performed using the Vinicio protocol. The patient exercised for 6 min 32 sec, to protocol stage 3, to a maximal work rate of 7.9mets. Exercise was terminated due to hip pain. Study completion: All catheters inserted during the procedure were removed. The patient tolerated the procedure well and was discharged from the lab. Discharge: The patient left the laboratory in stable condition. Birthdate: Patient birthdate: 1955. Sex: Gender: female. Study date: Study date: 12/22/2018. Study time: 00:01 AM. Signature Documentation: - The imaging portion of this study was interpreted by Nuclear Certified Composites Technician Jevon Estrada MD. - The Stress ECG portion of this study was interpreted by Jevon Estrada MD. Electronically signed by Jevon Estrada 12/22/2018 14:56
--- NOTE | 2018-12-22 14:51 | W.PM.DS.N ---
Date of service: 12/22/18 Time of Service: 14:51 DS: Diagnosis Discharge Diagnosis (1) CAD (coronary artery disease): Status: Chronic Discharge Plan Disposition Patient Disposition: HOME Condition: Stable Discharge Details Reason For Visit: CHEST PAIN Admit Date/Time: 12/20/18 19:10 Admit Provider: Arley Rios Attending Provider: Arley Rios Primary Care Provider: Lawrence Montelongo [facility] Hospital Course: CC: Chest Pain HPI: Very pleasant 63 year old woman with a prior medical history significant for CAD with 2 prior episodes of NSTEMI, admitted 12/20 from [facility] Emergency Department with a complaint of Chest Pain. Mrs. Watts has a history of CAD - she originally suffered an NSTEMI in 2013, for which she was evaluated at [facility], and again in October of 2017, after which she had a catheterization repeated at [facility]. Review of cardiology records indicates that the earlier study showed a distal RCA/RPDA chronic total occlusion, with distal flow via the LAD. Her repeat Cath in 10/2017 was significant for absence of the CLAMPER. No intervention was taken during either procedure. She was maintained on DAPT, with Clopidogrel discontinued recently after a 12 month course. She was seen in the ED following development of an acute, sharp, substernal/epigastric pain with radiation into her back. Her workup included essentially normal labs, and a normal CTA of the chest, abdomen, and pelvis. Her EKG showed abnormal appearance of ST segments in V1/V2 , and J Point elevations also seen on prior tracings. Her troponins were trended and remained undetectable. She also developed an unsual sensation which she described as a coolness of her torso and feeling of impending doom overnight, along with LE spasms that completely dissipated even prior to administration of Benadryl and Valium. Her am troponin was again negative, and there was concern regarding potential reaction to IV contrast received at time of her imaging. This morning the patient underwent an exercise treadmill stress test with myocardial perfusion imaging. No other overnight events reported. Remains afebrile. Hospital Course: (1) Atypical chest pain: Somewhat atypical chest pain in patient with known history of CAD. Nuclear stress test reviewed with it programmer and deemed negative for ischemia and low risk. Patient remains asymptomatic at this time, and has ruled out with serial cardiac biomarkers. Her EF was recorded as 40% by nusclear stress today, very likely falsely low - this will be followed up with an ECHO as an outpatient, as well as follow-up with her it programmer. Etiology of her pain includes potential esophageal spasm, as she did have response to nitroglycerin vs. musculoskeletal, with cardiac origin now less likely. Will continue on daily aspirin, BB, and high potency statin, with prn NTG as per patient wishes. Home Meds and New Rx's Prescriptions: New nitroglycerin 0.4 mg tablet, sublingual 0.4 mg SL Q5-15M PRN (Reason: chest pain) Qty: 9 RF: 0 Continued rosuvastatin [Crestor] 20 mg tablet 20 mg PO DAILY RF: 0 citalopram 10 mg tablet 10 mg PO DAILY RF: 0 Womens multivitamin 1 tab PO DAILY RF: 0 calcium carbonate 600 MG tablet 600 mg PO DAILY RF: 0 vitamin B complex 1 EACH capsule 1 ea PO DAILY RF: 0 metoprolol succinate [Toprol XL] 25 MG tablet extended release 24 hr 12.5 mg PO BID RF: 0 temazepam 15 MG capsule 15 mg PO HS Qty: 30 RF: 0 aspirin 325 mg tablet 81 mg PO DAILY RF: 0 tramadol 50 mg tablet 100 mg PO HS Qty: 30 RF: 0 albuterol sulfate 8.5 GM HFA aerosol inhaler 1 puff .Route PRN PRNRF: 0 gabapentin 300 mg Capsule 300 mg PO HS RF: 0 gabapentin 100 mg Capsule 200 mg PO DAILY AM RF: 0 omeprazole 20 mg Capsule,Delayed Release(Dr/Ec) 20 mg PO HS RF: 0 Discontinued omeprazole [Prilosec] 20 MG capsule,delayed release(DR/EC) 20 mg PO DAILY RF: 0 Discharge Instructions Activity:: Activity as Tolerated Equipment/Supplies:: No Equipment Needed Diet:: As Tolerated Discharge Orders Discharge Orders: Discharge Order (Routine); Ordered 12/22/18 Ordered By: Reed Olvera Other Ambulatory Orders: US echocardiogram (Routine) Timeframe: 1 Week Location: Determined by Patient Ordered By: Reed Olvera DS: Data Vitals/I&O Vitals and I&O: Vital Signs Temperature 36.4 C L 12/22/18 11:49 Temperature Source Tympanic 12/22/18 11:49 Pulse 60 12/22/18 11:34 Pulse Rhythm Regular 03/20/19 08:25 Pulse 74 12/22/18 14:17 Respiratory Rate 11 L 12/22/18 14:17 Respiratory Effort 12/22/18 08:25 Respiratory Depth Normal 12/22/18 08:25 Respiratory Pattern Normal 12/22/18 08:25 Blood Pressure 126/83 12/22/18 11:34 Blood Pressure Mean 91 12/22/18 11:34 Blood Pressure Position Supine 12/20/18 20:30 Pulse Oximetry 98 12/22/18 11:34 Oxygen Delivery Method Room Air 12/22/18 11:49 Oxygen Flow Rate 0 12/22/18 11:49 Pain Level 0 12/22/18 11:49 Comment 12/22/18 08:25 Intake & Output 12/21/18 12/22/18 12/22/18 23:59 11:59 23:59 Intake Total 220 / 340 120 / 340 Output Total 350 / 2300 1100 / 1100 Balance -350 / -1800 -880 / -760 120 / -760 Weight 80 kg Intake: Oral 220 / 340 120 / 340 Output: Urine 350 / 2300 1100 / 1100 Other: Urine Color Yellow Urine Appearance Clear Clear Urine Odor None Completed studies during hospitalization [Text1]: Exam(s) a CT:CT thorax & abd/pel CTA SYMPTOM/DIAGNOSIS: UPPER ABDOMEN/CHEST PAIN RADIATING THROUGH BACK. CT CHEST, ABDOMEN AND PELVIS: The study was carried out with an intravenous injection of 125 cc Omnipaque 350. There is no evidence of pulmonary embolic disease. There is no evidence of an aortic aneurysm or dissection. The lungs are well expanded and clear with no evidence of a mass. There is no pleural effusion or pneumothorax. The heart size is within normal limits. There is no pericardial effusion. A moderate size hiatus hernia is noted. There are no evidence of enlarged lymph nodes. No acute bony abnormality is seen. Incidental note is made of a right breast implant. A 6.8 x 3.6 cm mass in the subcutaneous fat posteriorly on the right side is demonstrated and could I suppose represent a hematoma, infection or neoplasm. SUMMARY: No evidence of PE. No evidence of an aneurysm or aortic dissection. CTA ABDOMEN AND PELVIS: CT angiography was performed with multi slice acquisition and multi planar and 3D reconstruction. Atherosclerotic changes are noted in the aorta. There is no evidence of occlusion involving the mesenteric arteries or celiac access. The renal arteries are intact. The iliac arteries are unremarkable. The liver is unremarkable. There is no evidence of cholelithiasis. There is no evidence of biliary obstruction. The pancreas, spleen and adrenals are unremarkable. The kidneys and stomach appear intact. There is no evidence of obstruction. There is no evidence of an acute appendix. The bladder is normal. The reproductive organs as visualized are intact. There is no evidence of free air or free fluid in the intraperitoneal space. There is no evidence of an abdominal or pelvic mass or adenopathy No acute bony abnormality is seen. SUMMARY: The CTA of the abdomen and pelvis is within normal limits. Please see the above discussion. [facility] Medical History Anxiety disorder (Chronic) Osteoarthritis of hips, bilateral (Chronic) Asthma (Chronic) CAD (coronary artery disease) (Chronic) Infiltrating ductal carcinoma of breast, stage 1 (Inactive) Surgical History Breast, Mastectomy Bilateral Cervical Procedure Family History Other Diabetes Heart disease Personal history of malignant neoplasm Social History Smoking/Tobacco Use Status: Former Tobacco Use Alcohol Intake: former Year quit: 2017 Details: formerly drank 1 glass of wine w/ dinner 3 to 5 night/wk, abstinent 07/2018 Drug use: Never Substance use type: does not use What is your relationship status?: Panel score (0-1 are the most socially isolated patients): 1 Do you feel safe at home: Yes Do you feel safe in your relationship?: Yes
--- NOTE | 2018-12-22 15:01 | DSE_ITS ---
Date of service: 12/22/18 Time of Service: 14:51 DS: Diagnosis Discharge Diagnosis (1) CAD (coronary artery disease): Status: Chronic Discharge Plan Disposition Patient Disposition: HOME Condition: Stable Discharge Details Reason For Visit: CHEST PAIN Admit Date/Time: 12/20/18 19:10 Admit Provider: Arley Rios Attending Provider: Arley Rios Primary Care Provider: Lawrence Montelongo [facility] Hospital Course: CC: Chest Pain HPI: Very pleasant 63 year old woman with a prior medical history significant for CAD with 2 prior episodes of NSTEMI, admitted 12/20 from [facility] Emergency Department with a complaint of Chest Pain. Mrs. Watts has a history of CAD - she originally suffered an NSTEMI in 2013, for which she was evaluated at [facility], and again in October of 2017, after which she had a catheterization repeated at [facility]. Review of cardiology records indicates that the earlier study showed a distal RCA/RPDA chronic total occlusion, with distal flow via the LAD. Her repeat Cath in 10/2017 was significant for absence of the SAMPLE BOOK MAKER. No intervention was taken during either procedure. She was maintained on DAPT, with Clopidogrel discontinued recently after a 12 month course. She was seen in the ED following development of an acute, sharp, substernal/epigastric pain with radiation into her back. Her workup included essentially normal labs, and a normal CTA of the chest, abdomen, and pelvis. Her EKG showed abnormal appearance of ST segments in V1/V2 , and J Point elevations also seen on prior tracings. Her troponins were trended and remained undetectable. She also developed an unsual sensation which she described as a coolness of her torso and feeling of impending doom overnight, along with LE spasms that completely dissipated even prior to administration of Benadryl and Valium. Her am troponin was again negative, and there was concern regarding potential reaction to IV contrast received at time of her imaging. This morning the patient underwent an exercise treadmill stress test with myocardial perfusion imaging. No other overnight events reported. Remains afebrile. Hospital Course: (1) Atypical chest pain: Somewhat atypical chest pain in patient with known history of CAD. Nuclear stress test reviewed with rivet maker and deemed negative for ischemia and low risk. Patient remains asymptomatic at this time, and has ruled out with serial cardiac biomarkers. Her EF was recorded as 40% by nusclear stress today, very likely falsely low - this will be followed up with an ECHO as an outpatient, as well as follow-up with her rivet maker. Etiology of her pain includes potential esophageal spasm, as she did have response to nitroglycerin vs. musculoskeletal, with cardiac origin now less likely. Will continue on daily aspirin, BB, and high potency statin, with prn NTG as per patient wishes. Home Meds and New Rx's Prescriptions: New nitroglycerin 0.4 mg tablet, sublingual 0.4 mg SL Q5-15M PRN (Reason: chest pain) Qty: 9 RF: 0 Continued rosuvastatin [Crestor] 20 mg tablet 20 mg PO DAILY RF: 0 citalopram 10 mg tablet 10 mg PO DAILY RF: 0 Womens multivitamin 1 tab PO DAILY RF: 0 calcium carbonate 600 MG tablet 600 mg PO DAILY RF: 0 vitamin B complex 1 EACH capsule 1 ea PO DAILY RF: 0 metoprolol succinate [Toprol XL] 25 MG tablet extended release 24 hr 12.5 mg PO BID RF: 0 temazepam 15 MG capsule 15 mg PO HS Qty: 30 RF: 0 aspirin 325 mg tablet 81 mg PO DAILY RF: 0 tramadol 50 mg tablet 100 mg PO HS Qty: 30 RF: 0 albuterol sulfate 8.5 GM HFA aerosol inhaler 1 puff .Route PRN PRNRF: 0 gabapentin 300 mg Capsule 300 mg PO HS RF: 0 gabapentin 100 mg Capsule 200 mg PO DAILY AM RF: 0 omeprazole 20 mg Capsule,Delayed Release(Dr/Ec) 20 mg PO HS RF: 0 Discontinued omeprazole [Prilosec] 20 MG capsule,delayed release(DR/EC) 20 mg PO DAILY RF: 0 Discharge Instructions Activity:: Activity as Tolerated Equipment/Supplies:: No Equipment Needed Diet:: As Tolerated Discharge Orders Discharge Orders: Discharge Order (Routine); Ordered 12/22/18 Ordered By: Reed Olvera Other Ambulatory Orders: US echocardiogram (Routine) Timeframe: 1 Week Location: Determined by Patient Ordered By: Reed Olvera DS: Data Vitals/I&O Vitals and I&O: Vital Signs Temperature 36.4 C L 12/22/18 11:49 Temperature Source Tympanic 12/22/18 11:49 Pulse 60 12/22/18 11:34 Pulse Rhythm Regular 03/20/19 08:25 Pulse 74 12/22/18 14:17 Respiratory Rate 11 L 12/22/18 14:17 Respiratory Effort 12/22/18 08:25 Respiratory Depth Normal 12/22/18 08:25 Respiratory Pattern Normal 12/22/18 08:25 Blood Pressure 126/83 12/22/18 11:34 Blood Pressure Mean 91 12/22/18 11:34 Blood Pressure Position Supine 12/20/18 20:30 Pulse Oximetry 98 12/22/18 11:34 Oxygen Delivery Method Room Air 12/22/18 11:49 Oxygen Flow Rate 0 12/22/18 11:49 Pain Level 0 12/22/18 11:49 Comment 12/22/18 08:25 Intake & Output 12/21/18 12/22/18 12/22/18 23:59 11:59 23:59 Intake Total 220 / 340 120 / 340 Output Total 350 / 2300 1100 / 1100 Balance -350 / -1800 -880 / -760 120 / -760 Weight 80 kg Intake: Oral 220 / 340 120 / 340 Output: Urine 350 / 2300 1100 / 1100 Other: Urine Color Yellow Urine Appearance Clear Clear Urine Odor None Completed studies during hospitalization [Text1]: Exam(s) a CT:CT thorax & abd/pel CTA SYMPTOM/DIAGNOSIS: UPPER ABDOMEN/CHEST PAIN RADIATING THROUGH BACK. CT CHEST, ABDOMEN AND PELVIS: The study was carried out with an intravenous injection of 125 cc Omnipaque 350. There is no evidence of pulmonary embolic disease. There is no evidence of an aortic aneurysm or dissection. The lungs are well expanded and clear with no evidence of a mass. There is no pleural effusion or pneumothorax. The heart size is within normal limits. There is no pericardial effusion. A moderate size hiatus hernia is noted. There are no evidence of enlarged lymph nodes. No acute bony abnormality is seen. Incidental note is made of a right breast implant. A 6.8 x 3.6 cm mass in the subcutaneous fat posteriorly on the right side is demonstrated and could I suppose represent a hematoma, infection or neoplasm. SUMMARY: No evidence of PE. No evidence of an aneurysm or aortic dissection. CTA ABDOMEN AND PELVIS: CT angiography was performed with multi slice acquisition and multi planar and 3D reconstruction. Atherosclerotic changes are noted in the aorta. There is no evidence of occlusion involving the mesenteric arteries or celiac access. The renal arteries are intact. The iliac arteries are unremarkable. The liver is unremarkable. There is no evidence of cholelithiasis. There is no evidence of biliary obstruction. The pancreas, spleen and adrenals are unremarkable. The kidneys and stomach appear intact. There is no evidence of obstruction. There is no evidence of an acute appendix. The bladder is normal. The reproductive organs as visualized are intact. There is no evidence of free air or free fluid in the intraperitoneal space. There is no evidence of an abdominal or pelvic mass or adenopathy No acute bony abnormality is seen. SUMMARY: The CTA of the abdomen and pelvis is within normal limits. Please see the above discussion. [facility] Medical History Anxiety disorder (Chronic) Osteoarthritis of hips, bilateral (Chronic) Asthma (Chronic) CAD (coronary artery disease) (Chronic) Infiltrating ductal carcinoma of breast, stage 1 (Inactive) Surgical History Breast, Mastectomy Bilateral Cervical Procedure Family History Other Diabetes Heart disease Personal history of malignant neoplasm Social History Smoking/Tobacco Use Status: Former Tobacco Use Alcohol Intake: former Year quit: 2017 Details: formerly drank 1 glass of wine w/ dinner 3 to 5 night/wk, abstinent 07/2018 Drug use: Never Substance use type: does not use What is your relationship status?: Panel score (0-1 are the most socially isolated patients): 1 Do you feel safe at home: Yes Do you feel safe in your relationship?: Yes
== END 2018-12-22 16:40 | disposition home or self-care (01) ==
LOC: ER 19:30 → ICU 20:36
PROVIDERS: Admitting Provider Internal Medicine; Emergency Provider Emergency Medicine; Visit Provider Internal Medicine
DX: I25.10 Atherosclerotic heart disease of native coronary artery without angina pectoris (principal); R07.89 Other chest pain; I25.2 Old myocardial infarction; Z95.5 Presence of coronary angioplasty implant and graft
CPT/HCPCS: 36415; 74177; 78452; 80048; 80053; 93005; 96360; 96361; 99217; 99223; 99225; 99254; 99285; J1650; 83036; 83735; 84484; 85025; 93010; 93017; 99220; G0378; J1200; J3490; Q9967

== ENCOUNTER 2019-01-04 01:27 | Outpatient (CLI) | payer OTHER, SELFPAY ==
--- NOTE | 2019-01-04 13:45 | MERGE_ITS ---
*[facility]* *[facility]* [address] [place] [address] Date of study: 01/04/2019 Transthoracic Echocardiography M-mode, complete 2D, complete spectral Doppler, and color Doppler *STUDY CONCLUSIONS* Summary: 1. Left ventricle: The cavity size was normal. There was mild focal basal hypertrophy of the septum. Systolic function was normal. The estimated ejection fraction was 60-65%. Wall motion was normal; there were no regional wall motion abnormalities. 2. Mitral valve: Mildly thickened leaflets. Mild systolic bowing without prolapse, involving the anterior leaflet. There was mild to moderate regurgitation. 3. Left atrium: The atrium was mildly dilated. 4. Right ventricle: The cavity size was normal. Wall thickness was normal. Systolic function was normal. *PATIENT PRESENTATION* Height: 172.7cm ((68in) ) S/D Pressure: 123 / 69 Weight: 80.3kg ((176.6lb) ) BSA: 1.98m^2 Test start time: 02:00 PM. Test stop time: 03:00 PM. PERFORMING Unknown REFERRING Reed Olvera PERFORMING [facility] ARCHITECTURE MANAGER RT Caren Ward)(ARUNA)ROBYN *PROCEDURE DATA* Procedure information: The patient was identified by two identifiers. This study was interpreted by [facility]. Pertinent images and digital data are archived for permanent storage and are available for subsequent review. No prior study was available for comparison. Study status: Routine. Transthoracic echocardiography. M-mode, complete 2D, complete spectral Doppler, and color Doppler. A Transthoracic Echocardiogram was performed. Scanning was performed from the parasternal, apical, subcostal, and suprasternal notch acoustic windows. Images were obtained using an [id number] cardiac ultrasound machine. Image quality was adequate. Study completion: The patient tolerated the procedure well. There were no complications. History: PMH: LOW LVEF by nuclear perfusion scan. *CARDIAC ANATOMY* Left ventricle: The cavity size was normal. There was mild focal basal hypertrophy of the septum. Systolic function was normal. The estimated ejection fraction was 60-65%. Wall motion was normal; there were no regional wall motion abnormalities. Diastolic parameters were normal. Aortic valve: Trileaflet; normal thickness leaflets. Mobility was not restricted. Doppler: Transvalvular velocity was within the normal range. There was no stenosis. There was no significant regurgitation. VTI ratio of LVOT to aortic valve: 0.84. Valve area (VTI): 2.2cm^2. Indexed valve area (VTI): 1.1cm^2/m^2. Peak velocity ratio of LVOT to aortic valve: 0.89. Valve area (Vmax): 2.3cm^2. Indexed valve area (Vmax): 1.2cm^2/m^2. Mean velocity ratio of LVOT to aortic valve: 0.87. Valve area (Vmean): 2.3cm^2. Indexed valve area (Vmean): 1.1cm^2/m^2. Mean gradient (S): 4.7mm Hg. Peak gradient (S): 7.6mm Hg. Aorta: Aortic root: The aortic root was normal in size. Ascending aorta: The ascending aorta was normal in size. Mitral valve: Mildly thickened leaflets. Mobility was not restricted. Mild systolic bowing without prolapse, involving the anterior leaflet. Doppler: Transvalvular velocity was within the normal range. There was no evidence for stenosis. There was mild to moderate regurgitation. Valve area by pressure half-time: 3.5cm^2. Indexed valve area by pressure half-time: 1.7cm^2/m^2. Peak gradient (D): 3.1mm Hg. Left atrium: The atrium was mildly dilated. Right ventricle: The cavity size was normal. Wall thickness was normal. Systolic function was normal. Pulmonic valve: Doppler: Transvalvular velocity was within the normal range. There was no evidence for stenosis. There was no significant regurgitation. Tricuspid valve: Structurally normal valve. Doppler: Transvalvular velocity was within the normal range. There was no evidence for stenosis. There was trivial regurgitation. Pulmonary artery: Pulmonary systolic pressure was within the normal range, in the range of 30mm Hg to 35mm Hg. Right atrium: The atrium was at the upper limits of normal in size. Pericardium: There was no pericardial effusion. Systemic veins: Inferior vena cava: Well visualized. The vessel was patent and normal in size. The respirophasic diameter changes were in the normal range (greater than or equal to 50%). Baseline ECG: Normal sinus rhythm. Measurements Left ventricle Value Reference LV ID, ED, PLAX 5.0 cm 3.5 - 6.0 LV ID, ES, PLAX 3.4 cm 2.1 - 4.0 LV PW thickness, ED, PLAX 0.9 cm LV end-diastolic volume, 1-p A2C 89 ml LV ejection fraction, 1-p A2C 59 % LV end-diastolic volume, 1-p A4C 75 ml LV ejection fraction, 1-p A4C 65 % LV e', lateral 0.102 m/sec LV E/e', lateral 9 LV e', medial 0.073 m/sec LV E/e', medial 12 LV e', average 0.087 m/sec LV E/e', average 10 Ventricular septum Value Reference IVS thickness, ED, PLAX 0.9 cm LVOT Value Reference LVOT ID, A-P 1.8 cm LVOT area 2.6 cm^2 LVOT peak velocity, S 1.23 m/sec LVOT mean velocity, S 0.91 m/sec LVOT VTI, S 28.4 cm LVOT peak gradient, S 6.1 mm Hg LVOT mean gradient, S 3.6 mm Hg Stroke volume (SV), LVOT DP 74 ml Stroke index (SV/bsa), LVOT DP 37 ml/m^2 Aortic valve Value Reference Aortic valve peak velocity, S 1.4 m/sec Aortic valve mean velocity, S 1.04 m/sec Aortic valve VTI, S 34.0 cm Aortic mean gradient, S 4.7 mm Hg Aortic peak gradient, S 7.6 mm Hg VTI ratio, LVOT/AV 0.84 Aortic valve area, VTI 2.2 cm^2 Velocity ratio, peak, LVOT/AV 0.89 Aortic valve area, peak velocity 2.3 cm^2 Velocity ratio, mean, LVOT/AV 0.87 Aortic valve area, mean velocity 2.3 cm^2 Aortic valve area/bsa, mean velocity 1.1 cm^2/m^2 Aorta Value Reference Aortic root ID, ED 2.8 cm Ascending aorta ID, A-P, S 3.2 cm Left atrium Value Reference LA ID, A-P, ES 4.0 cm LA ID/bsa, A-P 2.0 cm/m^2 <=2.2 LA area, ES, A4C (H) 25.8 cm^2 8.8 - 23.4 LA area, ES, A2C 23 cm^2 LA volume/bsa, ES, 1-p A4C 48 ml/m^2 LA volume, ES, 2-p 79 ml LA volume/bsa, ES, 2-p 40 ml/m^2 LA/aortic root ratio 1.45 Mitral valve Value Reference Mitral E-wave peak velocity 0.88 m/sec Mitral A-wave peak velocity 0.7 m/sec Mitral deceleration time 219 ms 150 - 230 Mitral pressure half-time 64 ms Mitral peak gradient, D 3.1 mm Hg Mitral E/A ratio, peak 1.25 Mitral valve area, PHT, DP 3.5 cm^2 Pulmonary veins Value Reference Pulmonary vein peak velocity, S 0.63 m/sec Pulmonary vein peak velocity, D 0.49 m/sec Pulmonary vein velocity ratio, peak, 1.31 S/D Tricuspid valve Value Reference Tricuspid regurg peak velocity 2.6 m/sec Tricuspid peak RV-RA gradient 27.4 mm Hg Right atrium Value Reference RA area, ES, A4C 18.9 cm^2 8.3 - 19.5 Legend: (L) and (H) leila values outside specified reference range. I have personally reviewed the images and have reviewed and edited the reported findings. Electronically signed by Jevon Estrada 01/04/2019 16:38
== END 2019-01-04 01:47 ==
PROVIDERS: PCP Family Medicine; Visit Provider Internal Medicine
DX: R94.30 Abnormal result of cardiovascular function study, unspecified (principal); I34.0 Nonrheumatic mitral (valve) insufficiency; I51.7 Cardiomegaly
CPT/HCPCS: 93306

== ENCOUNTER 2019-02-09 07:53 | Outpatient (CLI) | payer OTHER, SELFPAY ==
[2019-02-09 11:11] LABS: HCT 38.7 % (36.0-46.0); HGB 12.9 g/dL (12.0-15.5); Mean Corp. HGB Concentration 33.3 g/dL (32.0-36.0); Mean Corpuscular Hemoglobin 30.8 pg (27.0-33.0); Mean Corpuscular Volume 92.4 fL (80-95); Mean Platelet Volume 9.6 fL (8.0-11.0); Platelet Count 156 x1000/uL (130-400); RBC 4.19 m/cumm (4.00-5.20); RBC Distribution Width 12.7 % (11.7-14.6); White Blood Cell Count 5.53 k/cumm (4.4-10.8)
[2019-02-09 12:02] LABS: Anion Gap 8.8 mmol/L (3-11); BUN 12 mg/dL (7-18); CO2 29.2 mmol/L (21.0-32.0); CREATININE 0.79 mg/dL (0.55-1.02); Calcium 8.6 mg/dL (8.5-10.1); Chloride 100 mmol/L (98-107); Glucose 103 mg/dL (70-100); Potassium 4.1 mmol/L (3.5-5.1); Sodium 138 mmol/L (136-145)
== END 2019-02-09 08:13 ==
PROVIDERS: PCP Family Medicine; Visit Provider Student in an Organized Health Care Education/Training Program
DX: M25.551 Pain in right hip (principal); M16.11 Unilateral primary osteoarthritis, right hip; Z01.818 Encounter for other preprocedural examination
CPT/HCPCS: 36415; 80048; 85027; 86850; 86900; 86901

== ENCOUNTER 2019-02-17 05:53 | Inpatient (IN) | payer OTHER, SELFPAY ==
[2019-02-09 08:13] VITALS: BP 129/81; PULSE 64; RESP 16; TEMP 36.7; O2SAT 97
--- NOTE | 2019-02-13 14:49 | W.PREOPHP ---
Documented by User: DOMINGO Aguilar 02/13/19 15:01 Date of service: 02/09/19 Assessment and Plan (1) Primary osteoarthritis of right hip: Current visit: No Status: Chronic Right total hip replacement. Details of surgery were discussed with patient as well as risks and pertinent anatomy. All questions were answered. History of Present Illness Chief Complaint: RIGHT hip pain Narrative: Ariadna comes in today for preop visit of a right total hip replacement. She is a 63-year-old female who is very active, but has become limited by her right hip pain. She says the prolonged weightbearing, and also climbing stairs. she has pain with this pain is in her groin and also her anterior and medial thigh knee. This pain also is referred down to her knee as well. She had an injection into the right hip which completely relieved her pain, but only for a few months. She said that she felt this good as she has had in years when she had the injection. She would like this pain relief become lasting, and so Dr. Carvalho does offer a right total hip replacement. She agrees and is anxious to proceed. Pertinent Surgical Information Ariadna does have a cardiac history significant for a NSTEMI back in 2013 as well as October 2017. She was treated medically, and continues to be on medication for this including metoprolol and nitroglycerin as needed. She had cardiac clearance on 11/08/2018, but then began to have some atypical chest pain starting in December. She ended up in the emergency room in December with chest pain that was relieved by one single dose of nitroglycerin. She did have some EKGs done in the emergency room which showed some ischemic changes. Her troponins were negative x2. She then had a stress MPI which proved to have no perfusion defects and an ejection fraction of a 45%. She then had a transthoracic echocardiogram which showed an ejection fraction of 60-65%. Patient denies history of CVA, angina, asthma, COPD, renal or liver disorders, hepatitis, bleeding disorders, diabetes, immune or thyroid disorders. No complications from anesthesia. Review of Systems Constitutional Denies fever(s) ENT Denies dizziness and Denies sore throat Cardiovascular Reports chest pain (see surgical information for more information.), Denies palpitations and Denies dyspnea Respiratory Denies cough and Denies dyspnea Gastrointestinal Denies abdominal pain, Denies melena, Denies hematochezia, Denies diarrhea, Denies nausea and Denies vomiting Genitourinary Denies hematuria and Denies dysuria Neurologic Denies dizziness Endocrine Denies palpitations [facility] Social History Smoking/Tobacco Use Status: Former Tobacco Use Alcohol Intake: former Year quit: 2017 Details: formerly drank 1 glass of wine w/ dinner 3 to 5 night/wk, abstinent 07/2018 Drug use: Never Substance use type: does not use What is your relationship status?: Panel score (0-1 are the most socially isolated patients): 1 Do you feel safe at home: Yes Do you feel safe in your relationship?: Yes Meds Home Medications Medication Instructions Recorded Confirmed Type Womens Multivitamin 1 tab PO DAILY 03/07/13 02/09/19 History albuterol sulfate 1 puff .ROUTE PRN PRN 08/09/14 11/08/18 History calcium carbonate 600 mg PO DAILY 07/02/15 02/09/19 History vitamin B complex 1 ea PO DAILY 03/04/17 02/09/19 History metoprolol succinate [Toprol XL] 12.5 mg PO BID tab-cap 07/15/17 02/17/19 History temazepam 15 mg PO HS #30 tab-cap 10/30/17 02/09/19 Rx citalopram 10 mg tablet 10 mg PO HS 11/08/18 02/09/19 History rosuvastatin 20 mg tablet 20 mg PO DAILY 11/08/18 02/09/19 History tramadol 50 mg tablet 150 mg PO HS #30 tab-cap 11/08/18 02/09/19 History gabapentin 300 mg PO DAILY AM 12/20/18 02/09/19 History gabapentin 300 mg PO HS 12/20/18 02/09/19 History omeprazole 20 mg PO HS 12/20/18 02/09/19 History nitroglycerin 0.4 mg SL Q5-15M PRN #9 tab 12/22/18 Rx aspirin [Aspir-81] 162 mg PO BID 02/09/19 02/17/19 History acetaminophen [Tylenol Extra 1,000 mg PO PRN PRN 02/17/19 02/17/19 History Strength] Allergies Allergy/AdvReac Type Severity Reaction Status Date / Time amoxicillin Allergy Intermediate HIVES Unverified 02/17/19 06:05 Penicillins Allergy Intermediate HIVES Unverified 02/17/19 06:05 cephalexin monohydrate Allergy Skin Rash Unverified 02/17/19 06:05 [From Keflex] codeine [Codeine] AdvReac Mild ABDOMINAL Unverified 02/17/19 06:05 PAIN Exam HENMT Head: normocephalic and atraumatic General nose exam: no nasal discharge Throat: uvula midline and no uvular edema Other: soft palate rises symmetrically, no erythema Eyes Conjunctivae: conjunctivae normal Sclera: sclerae normal Pupils: PERRL Resp Effort & Inspection: normal respiratory effort Auscultation: clear to auscultation bilaterally and no wheezes Cardio Rate: regular rate Rhythm: regular rhythm Heart Sounds: S1 normal, S2 normal and no murmurs GI Palpation: soft, no hepatosplenomegaly and nontender Auscultation: normal bowel sounds Results Last Vital Signs Temp 36.7 C 02/09/19 08:13 Pulse 64 02/09/19 08:13 Resp 16 02/09/19 08:13 BP 129/81 02/09/19 08:13 Pulse Ox 97 02/09/19 08:13 Documented by User: Rafael Carvalho MD 02/17/19 10:47 [facility] Social History Smoking/Tobacco Use Status: Former Tobacco Use Alcohol Intake: former Year quit: 2018 Details: formerly drank 1 glass of wine w/ dinner 3 to 5 night/wk, abstinent 07/2018 Drug use: Never Substance use type: does not use What is your relationship status?: Panel score (0-1 are the most socially isolated patients): 1 Do you feel safe at home: Yes Do you feel safe in your relationship?: Yes Meds Home Medications Medication Instructions Recorded Confirmed Type Womens Multivitamin 1 tab PO DAILY 03/07/13 02/09/19 History albuterol sulfate 1 puff .ROUTE PRN PRN 08/09/14 11/08/18 History calcium carbonate 600 mg PO DAILY 07/02/15 02/09/19 History vitamin B complex 1 ea PO DAILY 03/04/17 02/09/19 History metoprolol succinate [Toprol XL] 12.5 mg PO BID tab-cap 07/15/17 02/17/19 History temazepam 15 mg PO HS #30 tab-cap 10/30/17 02/09/19 Rx citalopram 10 mg tablet 10 mg PO HS 11/08/18 02/09/19 History rosuvastatin 20 mg tablet 20 mg PO DAILY 11/08/18 02/09/19 History tramadol 50 mg tablet 150 mg PO HS #30 tab-cap 11/08/18 02/09/19 History gabapentin 300 mg PO DAILY AM 12/20/18 02/09/19 History gabapentin 300 mg PO HS 12/20/18 02/09/19 History omeprazole 20 mg PO HS 12/20/18 02/09/19 History nitroglycerin 0.4 mg SL Q5-15M PRN #9 tab 12/22/18 Rx aspirin [Aspir-81] 162 mg PO BID 02/09/19 02/17/19 History acetaminophen [Tylenol Extra 1,000 mg PO PRN PRN 02/17/19 02/17/19 History Strength] Allergies Allergy/AdvReac Type Severity Reaction Status Date / Time amoxicillin Allergy Intermediate HIVES Unverified 02/17/19 06:05 Penicillins Allergy Intermediate HIVES Unverified 02/17/19 06:05 cephalexin monohydrate Allergy Skin Rash Unverified 02/17/19 06:05 [From Keflex] codeine [Codeine] AdvReac Mild ABDOMINAL Unverified 02/17/19 06:05 PAIN
[2019-02-17] VITALS (14 sets, daily range): BP systolic 84–143; BP diastolic 57–84; PULSE 52–92; RESP 15–18; TEMP 35.5–36.9; O2SAT 96–100
[2019-02-17] MEDS: Lactated Ringers 1,000 ML 80 ML IV ×2 (06:47→11:30)
[2019-02-17] MEDS: Acetaminophen 500 MG TAB 1000 MG PO ×3 (06:48→20:20)
[2019-02-17] MEDS: oxyCODONE-CR 10 MG TABCR PO (06:49)
[2019-02-17] MEDS: Celecoxib 200 MG CAP 400 MG PO (06:54)
--- NOTE | 2019-02-17 07:12 | DI.RAD_ITS ---
SYMPTOM/DIAGNOSIS: RT NORBERTO RIGHT HIP IN OR: Fluoroscopy Time: 45.1 seconds C-arm fluoroscopy was utilized by Dr. Carvalho during placement of right hip prosthesis. Hard copies show the acetabular and femoral components of the hip prosthesis in place. PORTABLE PELVIS: A single view was obtained and shows total hip prosthesis in position on the right. The components appear well seated. No other bony abnormality is seen.
[2019-02-17] MEDS: Bupivacaine 0.25% Pres-Free 30 ML VIAL (09:12)
[2019-02-17] MEDS: Normal Saline 50 ML (09:12)
[2019-02-17] MEDS: Ketorolac 30 MG/ML VIAL (09:12)
--- NOTE | 2019-02-17 10:50 | ROE_ITS ---
Date of service: 02/17/19 Time of Service: 09:47 Operative Note DATE OF PROCEDURE: 02/17/19 PRE-OP DIAGNOSIS: Right Hip Osteoarthritis POST-OP DIAGNOSIS: same PROCEDURE: Right Anterior Total Hip Arthroplasty SURGEON: Rafael Carvalho CLOUD OPERATIONS ENGINEER: Moody Yoon ANESTHESIA: spinal ESTIMATED BLOOD LOSS: 300 PATHOLOGY: none sent COMPLICATIONS: None Patient was transported to: PACU Patient's condition: stable Implants: 1. Depuy [place] Acetabular Component, 54 mm 2. Depuy Acetabular Liner, 54 x 36 mm 3. Depuy Corail standard Collared femoral Stem, Size 11 4. Depuy Altrx Ceramic Femoral Head, Size 36+1.5 mm Indications: I have seen Ariadna in clinic for symptoms of hip arthritis, confirmed with radiographic findings. She has exhausted nonoperative methods and was having significant limitations in daily function and desired better function and less pain. I discussed the technical details of a hip replacement. I explained the risks of the procedure to include, but not limited to, bleeding, infection, pain, stiffness, fracture, damage to nerves and vessels, damage to muscles and tendons, loosening, instability, leg length inequality, need for repeat procedure, blood clot and cardiopulmonary demise. Despite these risks, she elected to proceed. Findings: There was significant signs of arthritis throughout the hip. These are most notable over the superior acetabulum with significant synovitis on the hip and inflammatory changes within the cotyloid fossa. Procedure Description: Ariadna was greeted in the preoperative holding area where the correct side was identified and marked. The consent was reviewed with the patient and signed. The history and physical was updated. All questions were answered. She was taken back to the operating room. A spinal anesthestic was then administered. The patient was placed into the supine position on the operating room table. The patient was then positioned onto the ARCH table. Both feet were wrapped with Webrill cotton wrap along with Coban. The feet were placed in specialized boots for the ARCH table, well seated within the boot and secured. SCDs were applied. The patient was then slid down onto a peroneal post and the nonoperative leg was secured in a leg darnell attached to the table. The operative side was placed into the ARCH table attachment and bed height and positioning was secured. A preoperative AP pelvis was obtained to serve as a reference for determining leg lengths. Prophylactic antibiotics in the form of vancomycin were administered. 1g of Tranxemic Acid was given intravenously within 30 minutes of incision. The right leg was then prepped with Chloraprep and draped in a standard fashion with a large shower-curtain type drape with Iodine impregnated skin protection. A timeout to confirm correct identity, side and site, procedure, allergies, anesthesia, and medical concerns was performed. An obliquely oriented incision was made starting lateral to the ASIS and running distal over the Tensor Fascia Yue (TFL) muscle belly toward the fibular head, approximately 10cm. The skin and soft tissue was dissected sharply, through Luiz?s fascia, and to the fascia of the TFL. With the fascia and superior border of the IT band identified, the fascia was incised with a new knife just above any perforators from the IT band. The TFL muscle belly was bluntly dissected away from the fascia and moved laterally. The fat between TFL and rectus was identified to ensure the dissection was not within the TFL. Blunt dissection created space between abductors and the capsule and retractor was placed over the lateral femoral neck. The fibers of the rectus femoris tendon were identified and these were freed from the anterior capsule. A second cobra retractor was placed around the medial femoral neck. The TFL was further retracted laterally to show the deep fascia. Careful dissection through this layer identified three main crossing vessels of the lateral femoral circumflex. These were cauterized in multiple locations and then cut without any noticeable bleeding. The TFL was further released bluntly from the deep fascia to expose anterior hip capsule and fat the Pawan orthopaedic retractor was then placed beneath the TFL and against sartorius and medial soft tissues to protect and retract the soft tissues. A T-capsulotomy was then performed starting at the superior lateral acetabulum and moving distally to the intertrochanteric ridge. These capsular flaps were tagged with a No. 1 Ethibond and elevated from within. The capsular flaps were released to the shoulder of the lateral neck and to the lesser trochanter to give excellent visualization of the proximal femur. A neck osteotomy was performed using an oscillating saw based on preoperative templates. This cut started in the shoulder and of the lateral neck and exited medially. The saw was at all times directed medially to avoid injury to the greater trochanter. 6cm of traction was applied to the leg and the osteotomy opened. The femoral head was removed with a corkscrew, making sure to protect the TFL on its exit. This was measured on the back table to determing the starting reamer size. Portions of the rectus obscuring visualization were minimally elevated off the superior acetabulum. An anterior retractor was placed over the anterior wall between capsule and labrum. A posterior retractor was placed similarly. This provided excellent visualization. The contents of the cotyloid fossa were removed with electrocautery and the labrum was removed with a knife. There was some notable for inflammatory change within the cartilage fossa. Acetabular reaming began with a 47 mm reamer. This first reaming was directed anterior to posterior and medial to get down to the true floor. This was inspected and reamed until the true floor was reached. I then reamed sequentially up to a 53 mm reamer where good fit was obtained. The larger reamers were oriented based on anatomical reference of the anterior and lateral blanco to ensure proper abduction and anteversion. Positioning and size was confirmed with the fluoroscopy. A 54 mm Depuy [place] acetabular component was selected. The acetabulum was reamed around the periphery with the selected acetabular size to prevent a rim fit. The deep tissues were irrigated. The acetabular component was then impacted in a position of about 40-45 degrees of abduction and 15-20 degrees of anteversion, using the patient?s anatomy as the ultimate landmark. Fluoroscopy was used to confirm this. There was excellent real estate portfolio manager of the acetabular component and the inserting handle was removed. The acetabular liner, Depuy 54 x 36 mm polyethylene liner, was inserted and lined up with the tines of the acetabular component. There was no soft tissue interposition. The liner was then impacted into position and confirmed to be well-seated. A portion of the alexandria-articular cocktail was then injected around the acetabulum into the capsule and periosteum. This cocktail consisted of 50cc of 0.25% Bupivicaine and 20cc of Exparel, expanded to a total of 120cc. Traction was released from the femur. The leg was rotated to 120 degrees. Any remaining medial capsule was released until the lesser trochanter was easily palpable. A Fried retractor was placed medially. The lateral capsule was further released into the shoulder to allow access to the greater trochanter. A Fried retractor was placed over the greater trochanter which allowed the trochanter to flip in front of the capsule for excellent exposure. The leg was brought down into maximal extension and 20 degrees of adduction while ensuring there was no impingement on the acetabulum. Any remnant capsule within the trochanter was released. Piriformis and obturator externis were identified and protected. There was excellent access to the proximal femur. The lateral neck remnant was removed with a rongeur. A blunt canal probe was used to identify the canal and trajectory for later broaching. A box osteotome initiated the broach course. A small curved rasp and a curved curette were used to work laterally. Broaching then began with a size 8 Corail broach. This was inserted manually around the trochanter and into the canal before mallet blows. The broach was seated to a few millimeters below the cut level based on the neck cut and the preoperative template. Sequential broaching was continued until a tight fit was obtained with good rotational control of the femur. A trial standard neck was inserted along with a +1.5 trial head. The leg was brought out of extension and adduction and then reduced with traction and internal rotation. The leg was stable anteriorly in a position of 30 degrees of extension and 90 degrees of external rotation. Fluoroscopy was used to ensure there was no fracture and the stem was seated well. Leg lengths were checked with an AP pelvis and pelvic reference points. Once content with the desired offset and leg lengths, the leg was brought back into extension, external rotation and adduction. The periosteum and surrounding tissue was injected with remaining portion of the alexandria-articular cocktail. The proximal femur was irrigated as well as the deep tissues. The Depuy Corail standard collared stem, size 11, was then manually inserted into the proximal femur making sure to control rotation. It was then malleted into position with light blows, giving breaks to allow bone expansion and decrease risk of fracture. The selected Depuy Altrx Ceramic Head, size 36 mm, was then placed onto the clean and dry trunnion and secured with impaction onto the tapered fit. The leg was brought back out of extension and adduction and reduced with traction and internal rotation. Stability was confirmed with no shuck at 90 degrees of external rotation and 30 degrees of extension. No impingement through range of motion arc. Final x-ray images were obtained with fluoroscopy to confirm adequate positioning and no intraoperative fracture. The deep tissues were thoroughly irrigated with a pulse lavage. The second dose of TXA 1g was administered intravenously. The capsule was then reapproximated with the previously placed Ethibond sutures. The TFL fascia was finally closed with a No. 2 Stratafix, barbed suture. Deep tissues were then reapproximated with 0 Vicryl and a running 2-0 Vicryl. The skin was closed with a running 4-0 Monocryl in a subcuticular fashion. This was reinforced with skin glue. A Mepilex silver dressing was applied. At the end of the case, all counts were correct. Ariadna was transferred to [facility] without difficulty and suffering no apparent complication. She has a good prognosis. Physical therapy will start today and without restrictions, weight-bearing as tolerated. Aspirin 81mg BID will be used for DVT prophylaxis.
[2019-02-17] MEDS: oxyCODONE 5 MG TAB PO ×4 (12:39→21:41)
--- NOTE | 2019-02-17 13:42 | PT.INIE ---
Date of service: 02/17/19 Time of Service: 12:41 PT Notes Inpatient Physical Therapy Evaluation Date: 02/17/2019 Referring Doctor: Rafael Carvalho MD PT Orders: PT CONSULT: Status post right anterior NORBERTO Precautions: Fall. Standard. WBAT on R LE. Avoid extreme ranges of hip extension on the right. Patient Profile/Admitting Diagnosis: Patient is [id number] old female with primary osteoarthritis of right and is status post right anterior hip arthroplasty on post operative day 0. 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 Patient states that they live on the third floor of the facility and has a ramp to enter the building. She has a wheelchair left to the second floor and has a flight of stairs to the third floor. She states that she on the average negotiates 10 flights of stairs each day to manage the facility. She does meal preparation and cooking, laundry, and cleaning of said facility. Current Functional Limitations: Need for assistance with bed mobility, transfers, and ambulation performance using FWW Equipment Owned/DME: Patient states that she has all the equipment that she needs: Hospital bed, wheelchair, FWW, raised toilet seat. Subjective: Patient pleasant and cooperative. She is agreeable to a PT consult and treatment. She states that she cannot fully feel her bilateral gluteal and her posterior thigh areas. She reported being lightheaded from supine to sitting at edge of bed during mobility assessment which resolved after couple of minutes of rest. Objective: General Observation: Patient seen resting in bed. Anti-DVT pumps to bilateral legs. TEDS to BLE. Sigala catheter in place. IV in right UE. Mental Status: Alert and oriented x3 Pain: 2/10 at rest on the right anterior lateral, 4/10 after gait activity. Vital Signs: In supine 121/60 7 mmHg, 60 bpm, 91% on room air. In sitting 120 mmHg, 64 bpm, 100% on room air. In standing, 113/70 mmHg, 70 bpm, 99% on room air. ROM: Right Upper Extremity: Shoulder Flexion WFL. Shoulder abduction WFL. Elbow flexion WFL. Wrist flexion WFL. Functional opening and closing of hand WFL. Left Upper Extremity: Shoulder Flexion WFL. Shoulder abduction WFL. Elbow flexion WFL. Wrist flexion WFL. Functional opening and closing of hand WFL. Right Lower Extremity: Hip flexion WFL. Hip abduction WFL. Knee flexion WFL. Ankle dorsiflexion WFL. Ankle plantarflexion WFL. Left Lower Extremity: Hip flexion WFL. Hip abduction WFL. Knee flexion WFL. Ankle dorsiflexion WFL. Ankle plantarflexion WFL. Strength: Right Upper Extremity: Shoulder flexors 5/5. Shoulder abductors 5/5. Elbow flexors 5/5. Elbow extensors 5/5. Electronics Teacher strong. Left Upper Extremity: Shoulder flexors 5/5. Shoulder abductors 5/5. Elbow flexors 5/5. Elbow extensors 5/5. Electronics Teacher strong. Right Lower Extremity: Hip flexors 4-/5. Hip extensors NT. Hip abductors 4-/5. Knee flexors 4/5. Knee extensors 4/5. Ankle dorsiflexors 5/5. Ankle plantarflexors 5/5. Left Lower Extremity:Hip flexors 5/5. Hip abductors 5/5. Knee flexors 5/5. Knee extensors 5/5. Ankle dorsiflexors 5/5. Ankle plantarflexors 5/5. Sensation: Intact to bilateral legs as to light touch, diminished on bilateral gluteal and posterior thigh areas. Bed Mobility/Transfers: Supine to sit CGA with HOB elevated to 30 degrees Sit to supine CGA with HOB elevated to 30 degrees Sit to stand CGA with bed elevated to at least 22 inches from floor Stand to sit CGA with bed elevated to at least 22 inches from floor Bed to chair CGA Chair to bed CGA Gait: Patient tolerated short distance ambulation 10 feet +1 turn +2 back steps to sit on 2 chair with 4/10 pain on right anterior lateral hip, FWW used with minimal verbal cues needed for safe gait pattern and walker management. Balance: Static Sitting: Good Dynamic Sitting: Good Static Standing: Fair Dynamic Standing: Fair Special Tests: Mobility Limitations Standardized Measure [facility] 6 clicks Basic Mobility Inpatient Short Form: Raw Score: 18 CMS Score: 47% deficit Informed Consent/Education: Patient instructed in purpose of PT consult and plan of care. Patient was instructed with seated level active range of motion exercises working on hip flexion, knee extension, and ankle plantarflexion/dorsiflexion to be done every hour. Assessment: Patient is a 63-year old female with primary osteoarthritis of right and is status post right anterior hip arthroplasty on post operative day 0. Patient presents with clinical signs and symptoms consistent with current/admitting diagnoses and postoperative status that have resulted to mobility limitations, gait instability, generalized weakness, and impairment of motor control as demonstrated by the following impairment level findings: 1. Decreased strength to right LE major muscle groups 2. Impaired sitting/standing balance 3. Impaired activity tolerance 4. Discomfort at end range of right hip movement Impairments are contributing to the following functional limitations: 1. Dependent bed mobility skills 2. Increased dependence with transfers 3. Inability to safely ambulate without assistive device and physical assistance 4. Increase completion time for mobility ADL performance 5. Increased fall risk 6. Inability to negotiate steps alone safely Patient is assessed as a Moderate 96905 complexity based on the following: History: Patient is [id number] old female with primary osteoarthritis of right and is status post right anterior hip arthroplasty on post operative day 0. Examination: Underlying impairments and functional limitations as noted above Presentation: Evolving Decision Makin moderate complexity Goals: Goals X1 week 1. Supine-Sit independent 2. Sit-Supine independent 3. Sit-Stand independent 4. Stand-Sit independent 5. Bed-Chair independent 6. Chair-Bed independent 7. Independent gait on level surface with use of least restrictive device for at least 300 feet without report of pain nor dyspnea 8. Independent stair negotiation while holding onto bilateral rails for at least 10 steps without report of pain nor dyspnea 9. Independent with home exercise program 10. Good static and dynamic standing balance/tolerance Plan of Care/Treatment Plan: 1-2x/day, 7 days/week x 1 week. Plan of care has been reviewed with the CORPORATE CLAIMS EXAMINER providing the service under Physical Therapy direction. Initiate Physical Therapy intervention for strengthening, bed mobility, transfers, gait, stairs, balance training, use of assistive device. DISCHARGE RECOMMENDATIONS: Patient may benefit from a short-term home health PT services in order to facilitate return to premorbid independent level without an assistive ambulatory device. No equipment needs at this time. TREATMENT CODE/TIME: 30485 for 30 minutes, 50149 for 60 minutes beginning at 12:41 PM. Thank you for this referral. Eleonora Blanton, PT, DPT, CLT [facility]
[2019-02-17] MEDS: HYDROmorphone 2 MG/ML VIAL 0.5 MG IVP ×2 (14:45→16:56)
[2019-02-17] MEDS: Normal Saline Flush 10 ML SYR IV ×3 (14:45→18:46)
[2019-02-17] MEDS: LORazepam 2 MG/ML VIAL 0.5 MG IVP (18:46)
[2019-02-17] MEDS: ROSUVASTATIN 20 MG TAB PO (20:20)
[2019-02-17] MEDS: Aspirin E.C. 81 MG TABEC 162 MG PO (20:20)
[2019-02-17] MEDS: Metoprolol CR 25 MG TABCR 12.5 MG PO (20:21)
[2019-02-17] MEDS: Citalopram 10 MG TAB PO (21:11)
[2019-02-17] MEDS: Omeprazole 20 MG CAPCR PO (21:11)
[2019-02-17] MEDS: Temazepam 15 MG CAP PO (21:11)
[2019-02-17] MEDS: Gabapentin 300 MG CAP PO (21:11)
[2019-02-18] MEDS: oxyCODONE 5 MG TAB PO ×4 (01:48→13:54)
[2019-02-18] MEDS: Lactated Ringers 1,000 ML 80 ML IV (01:49)
[2019-02-18 02:00] VITALS: BP 128/74; PULSE 68; RESP 18; TEMP 36.4; O2SAT 98
[2019-02-18] MEDS: Gabapentin 100 MG CAP 300 MG PO (05:51)
[2019-02-18] MEDS: LORazepam 2 MG/ML VIAL 0.5 MG IVP (07:20)
[2019-02-18 08:30] VITALS: BP 126/73; PULSE 76; RESP 16; TEMP 37.4; O2SAT 98
--- NOTE | 2019-02-18 08:38 | INITIAL_ITS ---
- If Service Date Differs Date of service: 02/18/19 Time of Service: 07:38 Care Management Initial Assess REASON FOR HOSPITALIZATION:: (R) Hip DJD PAST MEDICAL HISTORY/PAST SURGICAL HISTORY:: Anxiety, Osteoarthritis of hips, Asthma, CAD, Infiltrating ductal carcinoma of breast, Bilateral mastectomy, Cervical procedure PREVIOUS FUNCTIONAL STATUS/SOCIAL/FAMILY SUPPORTS:: Ariadna resides with her Matthew in [place], [place]. 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 At baseline, she is independent, drives, and is able to manage ADL's CURRENT FUNCTIONAL STATUS:: Currently Ariadna is lying in bed when this telegraphic typewriter repairer visits, she is pleasant and receptive to discussion. ADVANCE DIRECTIVES:: On file - Dr. Matthew Bertrand () is agent Has patient been provided with information about the portal?: Yes Did the patient sign up for the portal?: No CODE STATUS:: Full Code INSURANCE COVERAGE / FINANCIAL ISSUES:: [employer] CURRENT HOME/COMMUNITY SERVICES/EQUIPMENT:: Currently Ariadna has no services in the community. She has a Hospital bed, wheelchair, FWW, raised toilet seat. PRIMARY CARE PHYSICIAN:: Cheri Montelongo POTENTIAL DISCHARGE NEEDS:: F/U appointment with Dr. Carvalho PATIENT/FAMILY EDUCATION NEEDS:: Review DC instructions, any limitations, and ongoing DC planning discussion. Discuss ?Ask Me Three? ANTICIPATED BARRIERS TO DISCHARGE:: None identified at this time TRANSPORTATION:: Via private vehicle with mela Greenfield PLAN:: Ariadna will return home with no anticipated services, she will F/U with Dr. Carvalho and plan of care as prescribed. Mela Greenfield to transport when ready.
[2019-02-18] MEDS: Acetaminophen 500 MG TAB 1000 MG PO ×2 (08:55→13:54)
[2019-02-18] MEDS: Calcium Carbonate 1.5 GM TAB PO (08:55)
[2019-02-18] MEDS: Aspirin E.C. 81 MG TABEC 162 MG PO (08:56)
[2019-02-18] MEDS: Docusate Sodium 100 MG CAP PO ×2 (08:56→13:55)
[2019-02-18] MEDS: Vitamins B Comp w/C TAB 1 TAB PO (08:56)
[2019-02-18] MEDS: Celecoxib 100 MG CAP PO (08:57)
[2019-02-18] MEDS: Metoprolol CR 25 MG TABCR 12.5 MG PO (08:57)
[2019-02-18 11:40] VITALS: O2SAT 98
--- NOTE | 2019-02-18 12:28 | DSE_ITS ---
Date of service: 02/18/19 Time of Service: 12:27 DS: Diagnosis Discharge Diagnosis (1) Primary osteoarthritis of right hip: Status: Chronic Discharge Plan Disposition Patient Disposition: HOME Condition: Good Discharge Details Reason For Visit: R HIP DJD Admit Date/Time: 02/17/19 05:53 Admit Provider: Rafael Carvalho Attending Provider: Rafael Carvalho Primary Care Provider: Cheri Montelongo [facility] Course Hospital Course: Patient was admitted to the medical/surgical floor following the procedure. It was tolerated well without any notable medical, surgical, or anesthetic complications. Mobilization began postoperatively. The carter catheter was removed and voiding spontaneously. Vitals were stable. Physical therapy worked with the patient and was cleared for discharge home. No acute medical issues. Home Meds and New Rx's Prescriptions: New celecoxib 200 mg capsule 200 mg PO BID PRN (Reason: pain) Qty: 60 RF: 1 acetaminophen 500 mg tablet 1,000 mg PO Q8H PRN (Reason: pain) Qty: 90 RF: 3 oxycodone 5 mg tablet 5 - 10 mg PO Q4H Qty: 18 RF: 0 promethazine 25 mg tablet 25 mg PO Q6H PRN (Reason: nausea and vomiting) Qty: 12 RF: 0 Continued rosuvastatin [Crestor] 20 mg tablet 20 mg PO DAILY RF: 0 citalopram 10 mg tablet 10 mg PO HS RF: 0 Womens multivitamin 1 tab PO DAILY RF: 0 calcium carbonate 600 MG tablet 600 mg PO DAILY RF: 0 vitamin B complex 1 EACH capsule 1 ea PO DAILY RF: 0 metoprolol succinate [Toprol XL] 25 MG tablet extended release 24 hr 12.5 mg PO BID RF: 0 temazepam 15 MG capsule 15 mg PO HS Qty: 30 RF: 0 tramadol 50 mg tablet 150 mg PO HS Qty: 30 RF: 0 albuterol sulfate 8.5 GM HFA aerosol inhaler 1 puff .Route PRN PRNRF: 0 gabapentin 300 mg Capsule 300 mg PO HS RF: 0 gabapentin 100 mg Capsule 300 mg PO DAILY AM RF: 0 omeprazole 20 mg Capsule,Delayed Release(Dr/Ec) 20 mg PO HS RF: 0 nitroglycerin 0.4 mg tablet, sublingual 0.4 mg SL Q5-15M PRN (Reason: chest pain) Qty: 9 RF: 0 aspirin [Aspir-81] 81 mg Tablet,Delayed Release (Dr/Ec) 162 mg PO BID RF: 0 Discontinued acetaminophen [Tylenol Extra Strength] 500 mg Tablet 1,000 mg PO PRN PRNRF: 0 Discharge Instructions Additional Instructions: Dr. Carvalho?s Total Hip Discharge Instructions Activity: The most important activity is to walk. You should try to take short walks a few times a day. You have no restrictions on movement or positioning, but do not try to force what you do. You will find some stiffness and weakness with hip flexion (lifting your knee). Do not try to strengthen this too early, continue to practice walking and stairs and this will come. - Outpatient physical therapy can be helpful to help return you to a normal gait and improve your flexibility and strength. This can start around 2 weeks. For some patients, it?s not necessary. Usually this is determined at the time of discharge or at the first post-operative visit. - You should wear the SIMON hose on both legs for 4 weeks. Dressing: Keep the surgical dressing in place for at least one week. After the first week it may be removed and replace with light gauze and tape or nothing. It may get wet after 3 days but avoid soaking the dressing. If it gets wet, just lightly pat dry. It is important to always keep some gauze between skin folds, especially when you are sitting. Spend some time with the wound exposed when you are lying flat as the incision does wrinkle onto itself. Medications: - You should take Tylenol and an anti-inflammatory Celebrex as your primary pain control medications - You have been prescribed a stronger pain medication Oxycodone for breakthrough pain, take as needed as prescribed. - You should continue your Omeprazole - You will be taking your home Aspirin (162mg BID) for DVT prevention unless instructed otherwise. - If you have constipation you should take Colace or Miralax (both [id number]). It takes most people 3-4 days to have a bowel movement. Follow-up: 2 weeks Stand Alone Forms: Nursing Discharge Form Referrals: Rafael Carvalho MD [ [facility] STAFF PHYSICIAN] - 03/02/19 2:30 pm Activity:: Activity as Tolerated Equipment/Supplies:: Walker Diet:: As Tolerated Discharge Orders Discharge Orders: Discharge Order (Routine); Ordered 02/18/19 Ordered By: Rafael Carvalho DS: Data Vitals/I&O Vitals and I&O: Vital Signs Temperature 37.4 C 02/18/19 08:30 Temperature Source Tympanic 02/18/19 08:30 Pulse 76 02/18/19 08:30 Pulse Rhythm Regular 02/18/19 08:30 Respiratory Rate 16 02/18/19 08:30 Respiratory Effort 02/18/19 08:30 Respiratory Depth Normal 02/18/19 08:30 Respiratory Pattern Normal 02/18/19 08:30 Blood Pressure 126/73 02/18/19 08:30 Pulse Oximetry 98 02/18/19 11:40 Respiratory End-tidal CO2 28 02/17/19 10:04 Oxygen Delivery Method Room Air 02/18/19 11:40 Oxygen Flow Rate 0 02/18/19 11:40 Pain Level 6 02/18/19 09:00 Intake & Output 02/17/19 02/18/19 02/18/19 23:59 11:59 23:59 Intake Total 1402 / 2817 1700.667 / 1700.667 Output Total 2425 / 2875 1800 / 1800 Balance -1023 / -58 -99.333 / -99.333 Intake: IV 722 / 1897 1100.667 / 1100.667 Oral 680 / 920 600 / 600 Output: Urine 2425 / 2575 1800 / 1800 Other: Urine Color Straw Yellow Urine Appearance Clear Clear Voiding Methods Toilet [facility] Medical History History of postoperative nausea and vomiting (Acute) Breast CA (Chronic) GERD (gastroesophageal reflux disease) (Chronic) Anxiety disorder (Chronic) Asthma (Chronic) CAD (coronary artery disease) (Chronic) Osteoarthritis of hips, bilateral (Chronic) Infiltrating ductal carcinoma of breast, stage 1 (Inactive) Surgical History History of colonoscopy (Chronic) Breast, Mastectomy Bilateral Cervical Procedure Family History Other Diabetes Heart disease Personal history of malignant neoplasm Social History Smoking/Tobacco Use Status: Former Tobacco Use Alcohol Intake: former Year quit: 2017 Details: formerly drank 1 glass of wine w/ dinner 3 to 5 night/wk, abstinent 07/2018 Drug use: Never Substance use type: does not use What is your relationship status?: Panel score (0-1 are the most socially isolated patients): 1 Do you feel safe at home: Yes Do you feel safe in your relationship?: Yes
--- NOTE | 2019-02-18 15:06 | PT.INTREAT ---
Date of service: 02/18/19 Time of Service: 15:06 PT Notes Inpatient Physical Therapy Treatment Note [facility] Date: 02/18/2019 PRECAUTIONS: Fall, WBAT R SUBJECTIVE: Ariadna states that she is experiencing some right hip soreness, although is able to stand at the sink and perform ADLs independently today. OBJECTIVE: PAIN: Patient complains of right hip soreness with ther ex and gait training. BED MOBILITY/TRANSFERS Sit-stand: I Stand-sit: I GAIT Assistive Device: FWW Weight bearing: WBAT R Assist: S Distance: 75' x2 THEREX: Patient completed a lower extremity strengthening program, in a seated position, as per flow sheet. STAIRS: Up/down 12x4 and 9x6 using B rails and a step to pattern with supervision ASSESSMENT: Patient tolerated session with some complaints of right hip soreness with gait training and ther ex. Patient was able to tolerate a progression in gait distance with FWW support and supervision. Patient would benefit from continued strengthening as well as gait training for improved mobility and activity tolerance. PLAN: As per primary PT TREATMENT CODE/TIME: 45 minutes; 07455 x2, [id number]
--- NOTE | 2019-02-21 16:38 | INDS_ITS ---
Date of service: 02/21/19 PT Notes Inpatient Physical Therapy Discharge Summary Dates: 02/21/2019 Dates of Service: 02/17/2019 through 02/18/2019 This is a clinical summary of care provided on the duration of dates listed above. No charge was made in the completion of this documentation. Referring Doctor: Rafael Carvalho MD PT Orders: PT CONSULT: Status post right anterior NORBERTO Precautions: Fall. Standard. WBAT on R LE. Avoid extreme ranges of hip extension on the right. Patient Profile/Admitting Diagnosis: Patient is [id number] old female with primary osteoarthritis of right and is status post right anterior hip arthroplasty on post operative day 1. 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 Patient states that they live on the third floor of the facility and has a ramp to enter the building. She has a wheelchair left to the second floor and has a flight of stairs to the third floor. She states that she on the average negotiates 10 flights of stairs each day to manage the facility. She does meal preparation and cooking, laundry, and cleaning of said facility. Current Functional Limitations: Need for assistance with bed mobility, transfers, and ambulation performance using FWW Equipment Owned/DME: Patient states that she has all the equipment that she needs: Hospital bed, wheelchair, FWW, raised toilet seat. Subjective: NT Objective: General Observation: NT Mental Status:NT Pain: NT ROM: Right Upper Extremity: Shoulder Flexion WFL. Shoulder abduction WFL. Elbow flexion WFL. Wrist flexion WFL. Functional opening and closing of hand WFL. Left Upper Extremity: Shoulder Flexion WFL. Shoulder abduction WFL. Elbow f lexion WFL. Wrist flexion WFL. Functional opening and closing of hand WFL. Right Lower Extremity: Hip flexion WFL. Hip abduction WFL. Knee flexion WFL. Ankle dorsiflexion WFL. Ankle plantarflexion WFL. Left Lower Extremity: Hip flexion WFL. Hip abduction WFL. Knee flexion WFL. Ankle dorsiflexion WFL. Ankle plantarflexion WFL. Strength: Right Upper Extremity: Shoulder flexors 5/5. Shoulder abductors 5/5. Elbow flexors 5/5. Elbow extensors 5/5. [place] strong. Left Upper Extremity: Shoulder flexors 5/5. Shoulder abductors 5/5. Elbow flexors 5/5. Elbow extensors 5/5. [place] strong. Right Lower Extremity: Hip flexors 4-/5. Hip extensors NT. Hip abductors 4-/5. Knee flexors 4/5. Knee extensors 4/5. Ankle dorsiflexors 5/5. Ankle plantarflexors 5/5. Left Lower Extremity:Hip flexors 5/5. Hip abductors 5/5. Knee flexors 5/5. Knee extensors 5/5. Ankle dorsiflexors 5/5. Ankle plantarflexors 5/5. Bed Mobility/Transfers: Supine to sit I Sit to supine I Sit to stand I Stand to sit I Bed to chair I Chair to bed I Gait: Patient tolerated short distance ambulation 75 feet x 2 with FWW and minimal verbal cues for safety. Patient also negotiated twelve 4 inch steps and nine 6 inch steps while holding onto both rails using step to pattern requiring supervision assist only. Balance: Static Sitting: Good Dynamic Sitting: Good Static Standing: Fair Dynamic Standing: Fair Assessment: Patient is a 63-year old female with primary osteoarthritis of right and is status post right anterior hip arthroplasty on post operative day 1. Patient presents with clinical signs and symptoms consistent with current/admitting diagnoses and postoperative status that have resulted to mobility limitations, gait instability, generalized weakness, and impairment of motor control as demonstrated by the following impairment level findings: 1. Decreased strength to right LE major muscle groups 2. Impaired sitting/standing balance 3. Impaired activity tolerance 4. Discomfort at end range of right hip movement Impairments are contributing to the following functional limitations: 1. Dependent bed mobility skills 2. Increased dependence with transfers 3. Inability to safely ambulate without assistive device and physical assistance 4. Increase completion time for mobility ADL performance 5. Increased fall risk 6. Inability to negotiate steps alone safely Goals: Goals X1 week 1. Supine-Sit independent MET 2. Sit-Supine independent MET 3. Sit-Stand independent MET 4. Stand-Sit independent MET 5. Bed-Chair independent MET 6. Chair-Bed independent MET 7. Independent gait on level surface with use of least restrictive device for at least 300 feet without report of pain nor dyspnea NOT MET 8. Independent stair negotiation while holding onto bilateral rails for at least 10 steps without report of pain nor dyspnea NOT MET 9. Independent with home exercise program NOT MET 10. Good static and dynamic standing balance/tolerance NOT MET DISCHARGE RECOMMENDATIONS: Patient may benefit from a short-term home health PT services in order to facilitate return to premorbid independent level without an assistive ambulatory device. No equipment needs at this time. TREATMENT CODE/TIME: NC. Thank you for this referral. Eleonora Blanton, PT, DPT, CLT [facility]
== END 2019-02-18 14:29 | disposition home or self-care (01) | DRG 470 ==
LOC: PDS 09:12 → MS 09:50
PROVIDERS: Admitting Provider Student in an Organized Health Care Education/Training Program; PCP Family Medicine; Visit Provider Student in an Organized Health Care Education/Training Program
PROC: 0SR904A Replacement of Right Hip Joint with Ceramic on Polyethylene Synthetic Substitute, Uncemented, Open Approach (ICD-10-PCS; CPT 27130; principal; 2019-02-17 07:30)
DX: M16.11 Unilateral primary osteoarthritis, right hip (principal); Z96.651 Presence of right artificial knee joint; I25.2 Old myocardial infarction
CPT/HCPCS: 27130; 97110; 97162; 97530; NC; 72170; 73501; J1885; J2060; J2250; J2405; J3370

== ENCOUNTER 2019-03-02 15:04 | Outpatient (CLI) | payer OTHER, SELFPAY ==
--- NOTE | 2019-03-02 14:45 | DI.RAD_ITS ---
SYMPTOMS/DIAGNOSIS: FIRST VISIT POSTOPERATIVE TOTAL HIP ARTHROPLASTY RIGHT HIP: The patient is status post NORBERTO, the prosthesis in good position, surrounding bone intact with no interval change when compared with prior images.
== END 2019-03-02 15:24 ==
PROVIDERS: PCP Family Medicine; Visit Provider Student in an Organized Health Care Education/Training Program
DX: M16.11 Unilateral primary osteoarthritis, right hip (principal); Z96.641 Presence of right artificial hip joint; Z47.1 Aftercare following joint replacement surgery
CPT/HCPCS: 73502

== ENCOUNTER 2019-04-13 12:59 | Outpatient (CLI) | payer OTHER, SELFPAY ==
[2019-04-13 14:14] LABS: ALT 55 U/L (12-78); AST 28 U/L (15-37); Albumin 3.6 g/dL (3.4-5.0); Alkaline Phosphatase 75 U/L (46-116); Anion Gap 11.9 mmol/L (3-11); BUN 14 mg/dL (7-18); Bilirubin, Total 0.3 mg/dL (0.2-1.0); CO2 26.1 mmol/L (21.0-32.0); CREATININE 0.89 mg/dL (0.55-1.02); Calcium 8.8 mg/dL (8.5-10.1); Calculated LDL 78 mg/dL; Chloride 104 mmol/L (98-107); Cholesterol 178 mg/dL (50-200); Glucose 149 mg/dL (70-100); HDL Cholesterol 77 mg/dL (40-60); Potassium 3.9 mmol/L (3.5-5.1); Sodium 142 mmol/L (136-145); T4 6.6 ug/dL (4.5-12.5); Total Protein 6.7 g/dL (6.4-8.2); Triglyceride 117 mg/dL (30-150)
== END 2019-04-13 13:19 ==
PROVIDERS: PCP Family Medicine; Visit Provider Family Medicine
DX: I25.10 Atherosclerotic heart disease of native coronary artery without angina pectoris (principal); Z00.00 Encounter for general adult medical examination without abnormal findings
CPT/HCPCS: 80053; 80061; 83721; 84436; 84443

== ENCOUNTER 2019-04-16 14:24 | Emergency (ER) | payer OTHER, SELFPAY ==
[2019-04-16] VITALS (36 sets, daily range): BP systolic 120–143; BP diastolic 70–87; PULSE 73–93; RESP 13–26; TEMP 36.6–36.7; O2SAT 93–98
--- NOTE | 2019-04-16 14:41 | W.ED.GENAD ---
Discharge Plan Disposition Patient Disposition: HOME Condition: Stable Discharge Details Chief Complaint: Chest Pain Clinical Impression: Chest pain Primary Care Provider: Cheri Montelongo ED Provider: Ajay Roy Home Meds and New Rx's Prescriptions: No Action rosuvastatin [Crestor] 20 mg tablet 20 mg PO DAILY RF: 0 citalopram 10 mg tablet 10 mg PO HS RF: 0 prednisone 10 mg tablet 10 mg PO DAILY Qty: 30 RF: 0 Womens multivitamin 1 tab PO DAILY RF: 0 calcium carbonate 600 MG tablet 600 mg PO DAILY RF: 0 vitamin B complex 1 EACH capsule 1 ea PO DAILY RF: 0 metoprolol succinate [Toprol XL] 25 MG tablet extended release 24 hr 12.5 mg PO BID RF: 0 temazepam 15 MG capsule 15 mg PO HS Qty: 30 RF: 0 tramadol 50 mg tablet 150 mg PO HS Qty: 30 RF: 0 gabapentin 600 mg tablet 600 mg PO QHS Qty: 14 RF: 0 hydromorphone 2 mg tablet 2 mg PO Q4H MDD 12mg PRN (Reason: pain) Qty: 14 RF: 0 albuterol sulfate 8.5 GM HFA aerosol inhaler 1 puff .Route PRN PRNRF: 0 gabapentin 300 mg Capsule 300 mg PO HS RF: 0 gabapentin 100 mg Capsule 300 mg PO DAILY AM RF: 0 omeprazole 20 mg Capsule,Delayed Release(Dr/Ec) 20 mg PO HS RF: 0 nitroglycerin 0.4 mg tablet, sublingual 0.4 mg SL Q5-15M PRN (Reason: chest pain) Qty: 9 RF: 0 aspirin [Aspir-81] 81 mg Tablet,Delayed Release (Dr/Ec) 162 mg PO BID RF: 0 celecoxib 200 mg capsule 200 mg PO BID PRN (Reason: pain) Qty: 60 RF: 1 acetaminophen 500 mg tablet 1,000 mg PO Q8H PRN (Reason: pain) Qty: 90 RF: 3 oxycodone 5 mg tablet 5 - 10 mg PO Q4H Qty: 18 RF: 0 promethazine 25 mg tablet 25 mg PO Q6H PRN (Reason: nausea and vomiting) Qty: 12 RF: 0 Discharge Instructions Instructions: Chest Pain (ED) Additional Instructions: Your lab work did not show evidence of a heart attack. Your cat scan did not show any pulmonary embolism (blood clot). You do have a lung nodule which you should make your primary care aware of as you may need future imaging to make sure this isn't enlarging follow up as scheduled with your primary care provider on Thursday if you have severe worsening of pain or shortness of breath, or if you feel more ill return to the emergency department Medical Decision Making 64 yo female with hx of cad who comes in with chest pain that started after she had been picking strawberries and is now gone. She denies fevers, cough, n/v. She is in no distress on exam speaking in full sentences without jvd or lower leg edema and has clear lungs and no distant heart sounds. She states this feels similar to when she was admitted here in December with negative workup including stress test. EKG unchanged. Will obtain labs and monitor. Wells score is low, will send d dimer to eval for PE. No tearnig back pain and normal vascular exam so doubt dissection initial labs unremarkabale other than elevated d dimer. I explained this result to the patient and she is decliing a CTA at this time as she had a CT done in December. She has the capacity to make her own decisions and understands PE can't be excluded without obtaining CTA and she is willing to take the risks of missing a PE. She is willing to stay for delta troponin and ecg pt has discussed it with her and is now willing to have the CT but is requesting benadryl and steroids. She had the CTA done in December and had no respiratory or GI symptoms but felt off later that night and required benadryl and ativan. No findings to suggest anphylaxis so feel it is safe to proceed with cta cta negative does have a nodule which is unchanged and advised that this should be told to her pcp for future monitoring. Remains pain free and second troponin negative. Will d/c home and she has f/u on Thursday with her pcp Differential Diagnosis esophageal spasm, nstemi, pe Medical Records Medical records reviewed: Yes I reviewed the patient's medical records. Imaging Data Radiologic Study: Attestation: I personally reviewed and interpreted this imaging study as follows: Imaging: CT Scan Radiologist's impression: IMPRESSION: 1. No pulmonary embolism. 2. 3.5 mm pulmonary nodule within the superior segment of the left lower lobe, unchanged compared to the prior CT scan performed on 12/20/2018. If the patient is at high risk (history of smoking or of other known risk factors), consider optional CT in 8 months as per Fleischner criteria guidelines. (Nhan et al., Fleischner Society, 2017). Lab Data Lab results reviewed: Yes I reviewed the patient's lab results. ECG Data Attestation: I personally reviewed and interpreted this ECG (s) as follows: Prior ECG tracings: available for review Interpretation: sinus rhythm, rate of 70, pr 126, no acute st t wave ischemic changes 2nd ekg shows sinus rhythm, normal axis and rate and no acute st t wave ischemic changes HPI General Mode of arrival: ambulatory. Date/Time Provider Initiated Documentation: 04/16/19 14:28. Limitations to Documentation: no limitations. Information obtained by: patient. History of Present Illness 64 year old F presents to the emergency department with the chief complaint of chest pain, described as moderate, Quality is described as sharp, and is localized to the chest. Patient started experiencing this hour(s) (1) and it has been constant. No relieving factors improve symptom(s), No exacerbating factors reported . Related Data Home Medications Medication Instructions Recorded Confirmed Womens Multivitamin 1 tab PO DAILY 03/07/13 03/30/19 albuterol sulfate 1 puff .ROUTE PRN PRN 08/09/14 03/30/19 calcium carbonate 600 mg PO DAILY 07/02/15 03/30/19 vitamin B complex 1 ea PO DAILY 03/04/17 03/30/19 metoprolol succinate [Toprol XL] 12.5 mg PO BID tab-cap 07/15/17 03/30/19 temazepam 15 mg PO HS #30 tab-cap 10/30/17 03/30/19 citalopram 10 mg tablet 10 mg PO HS 11/08/18 03/30/19 rosuvastatin 20 mg tablet 20 mg PO DAILY 11/08/18 03/30/19 tramadol 50 mg tablet 150 mg PO HS #30 tab-cap 11/08/18 03/30/19 gabapentin 300 mg PO DAILY AM 12/20/18 03/30/19 gabapentin 300 mg PO HS 12/20/18 03/30/19 omeprazole 20 mg PO HS 12/20/18 03/30/19 nitroglycerin 0.4 mg SL Q5-15M PRN #9 tab 12/22/18 03/30/19 aspirin [Aspir-81] 162 mg PO BID 02/09/19 03/30/19 acetaminophen 1,000 mg PO Q8H PRN #90 tab 02/18/19 03/30/19 celecoxib 200 mg PO BID PRN #60 cap 02/18/19 03/30/19 oxycodone 5 - 10 mg PO Q4H #18 tab 02/18/19 03/30/19 promethazine 25 mg PO Q6H PRN #12 tab 02/18/19 03/30/19 gabapentin 600 mg tablet 600 mg PO QHS #14 tab 02/24/19 03/30/19 hydromorphone 2 mg tablet 2 mg PO Q4H PRN #14 tab MDD 12mg 02/24/19 03/30/19 prednisone 10 mg tablet 10 mg PO DAILY #30 tab 03/02/19 03/30/19 Previous Rx's Medication Instructions Recorded temazepam 15 mg PO HS #30 tab-cap 10/30/17 nitroglycerin 0.4 mg SL Q5-15M PRN #9 tab 12/22/18 acetaminophen 1,000 mg PO Q8H PRN #90 tab 02/18/19 celecoxib 200 mg PO BID PRN #60 cap 02/18/19 oxycodone 5 - 10 mg PO Q4H #18 tab 02/18/19 promethazine 25 mg PO Q6H PRN #12 tab 02/18/19 gabapentin 600 mg tablet 600 mg PO QHS #14 tab 02/24/19 hydromorphone 2 mg tablet 2 mg PO Q4H PRN #14 tab MDD 12mg 02/24/19 prednisone 10 mg tablet 10 mg PO DAILY #30 tab 03/02/19 Allergies Allergy/AdvReac Type Severity Reaction Status Date / Time amoxicillin Allergy Intermediate HIVES Unverified 03/30/19 14:33 Penicillins Allergy Intermediate HIVES Unverified 03/30/19 14:33 cephalexin monohydrate Allergy Skin Rash Unverified 03/30/19 14:33 [From Keflex] codeine [Codeine] AdvReac Mild ABDOMINAL Unverified 03/30/19 14:33 PAIN General Stated Complaint: Chest Pain LAKHWINDER: 2 Review of Systems Review of Systems All systems reviewed & are unremarkable except as noted in HPI and below Constitutional Denies chills and Denies fever(s) ENT Denies change in voice Cardiovascular Denies dyspnea Respiratory Denies cough and Denies dyspnea Gastrointestinal Denies abdominal pain, Denies nausea and Denies vomiting Endocrine Denies cold intolerance [facility] Social History Smoking/Tobacco Use Status: Former Tobacco Use Alcohol Intake: former Year quit: 2017 Details: formerly drank 1 glass of wine w/ dinner 3 to 5 night/wk, abstinent 07/2018 Drug use: Never Substance use type: does not use What is your relationship status?: Panel score (0-1 are the most socially isolated patients): 1 Do you feel safe at home: Yes Do you feel safe in your relationship?: Yes Exam Const General: no acute distress Orientation: alert HENMT Head: normal to inspection Ears: external ears normal General nose exam: external nose normal Mouth: moist mucous membranes Eyes General: appearance normal, both eyes and all related structures Neck Neck: normal visual inspection Resp Effort & Inspection: normal respiratory effort and able to speak in complete sentences Cardio Rate: regular rate Skin General skin exam: no rashes or lesions noted Neuro General: alert and oriented x3 Extrem General: normal to inspection Psych Mental Status: mental status grossly normal Course Vital Signs Temperature 36.6 C 04/16/19 14:30 Pulse 76 04/16/19 14:30 Respiratory Rate 16 04/16/19 14:30 Blood Pressure 120/70 04/16/19 14:30 Pulse Oximetry 93 L 04/16/19 14:30 Temperature 36.6 C 04/16/19 14:30 Pulse 76 04/16/19 14:30 Respiratory Rate 16 04/16/19 14:30 Blood Pressure 120/70 04/16/19 14:30 Blood Pressure Position Supine 04/16/19 14:30 Pulse Oximetry 93 L 04/16/19 14:30 Oxygen Delivery Method Room Air 04/16/19 14:30 Oxygen Flow Rate 0 04/16/19 14:30 Pain Level 4 04/16/19 14:30
[2019-04-16 14:43] LABS: Abs Immature Grans 0.01 k/cumm (0.0-0.09); Absolute Basophil Count 0.03 k/cumm (0.0-0.2); Absolute Eosinophil Count 0.19 k/cumm (0.0-0.7); Absolute Lymphocyte Count 3.43 k/cumm (1.2-3.4); Absolute Monocyte Count 0.66 k/cumm (0.11-0.7); Absolute Neutrophil Count 4.19 k/cumm (1.2-6.7); Basophils % 0.4; Eosinophils % 2.2; HGB 12.9 g/dL (12.0-15.5); Immature Grans % 0.1; Lymphocytes % 40.3; Mean Corp. HGB Concentration 33.9 g/dL (32.0-36.0); Mean Corpuscular Volume 91.3 fL (80-95); Mean Platelet Volume 10.1 fL (8.0-11.0); Monocytes % 7.8; Neutrophils % 49.2; Platelet Count 232 x1000/uL (130-400); RBC 4.16 m/cumm (4.00-5.20); RBC Distribution Width 12.6 % (11.7-14.6); White Blood Cell Count 8.51 k/cumm (4.4-10.8)
[2019-04-16] MEDS: Aspirin 81 MG CHEW 324 MG CH (14:46)
[2019-04-16 14:58] LABS: PTT Activated 21.4 sec (21.0-31.4); Prothrombin Time 9.7 sec (9.3-11.0)
[2019-04-16 15:06] LABS: ALT 36 U/L (12-78); AST 20 U/L (15-37); Albumin 3.7 g/dL (3.4-5.0); Alkaline Phosphatase 70 U/L (46-116); Anion Gap 10.9 mmol/L (3-11); BUN 20 mg/dL (7-18); Bilirubin, Total 0.3 mg/dL (0.2-1.0); CO2 26.1 mmol/L (21.0-32.0); CREATININE 0.84 mg/dL (0.55-1.02); Calcium 9.3 mg/dL (8.5-10.1); Chloride 103 mmol/L (98-107); Glucose 105 mg/dL (70-100); Magnesium 2.1 mg/dL (1.8-2.4); NT-proBNP 214 pg/mL; Sodium 140 mmol/L (136-145); Total Protein 7.2 g/dL (6.4-8.2); Troponin I < 0.05 ng/mL (0.00-0.06)
[2019-04-16 15:13] LABS: D-Dimer 1907 ng/mlFEU (<500)
--- NOTE | 2019-04-16 16:35 | DI.CT_ITS ---
SYMPTOM/DIAGNOSIS: CHEST PAIN, ELEVATED D DIMER PE CHEST CT: CT angiography was performed with multi slice acquisition and multi planar and 3D reconstruction. Comparison CT scan is 12/20/18. There is no evidence of a pulmonary embolus. The thoracic aorta is of normal caliber. No aneurysm or dissection is present. Heart size is within normal limits. No significant pericardial effusion is seen. No evidence of right ventricular dysfunction is present. No significant thoracic adenopathy is present. No pleural effusion or pneumothorax is identified. Dependent atelectatic changes are seen in the lungs. There is a stable 3.5 mm. nodule in the superior segment of the left lower lobe. This is unchanged compared to the CT scan from 12/20/18. Tracheobronchial tree is unremarkable. No focal consolidating infiltrates are present. Note is made of a moderate sized hiatal hernia. There is a right breast implant in place. Degenerative changes are seen in the spine. IMPRESSION: 1. No evidence of pulmonary embolus, thoracic aortic dissection or aneurysm. 2. Stable 3.5 mm. pulmonary nodule in the superior segment of the left lower lobe. This is stable compared to 12/20/18. If patient is high risk (history of smoking or other known risk factors), consider CT scan in 8 months for follow up to document stability of the pulmonary nodule.
[2019-04-16] MEDS: methylPREDNISolone SUCC 125 MG VIAL IVP (16:41)
[2019-04-16] MEDS: diphenhydrAMINE 50 MG/ML VIAL 25 MG IVP (16:52)
[2019-04-16] MEDS: Omnipaque 350 MG/ML 100 ML BTL IJ (17:05)
--- NOTE | 2019-04-16 17:33 | DI.VRAD_ITS ---
EXAM: CT Angiography Chest With Contrast EXAM DATE/TIME: 04/16/2019 4:36 PM CLINICAL HISTORY: 64 years old, female; Chest pain; Type not specified; Patient HX: Elevated d-dimer TECHNIQUE: Imaging protocol: Axial computed tomographic angiography images of the chest with intravenous contrast using CT angiography protocol. Coronal and sagittal reformatted images were created and reviewed. 3D rendering: MIP reconstructed images were created and reviewed. Radiation optimization: All CT scans at this facility use at least one of these dose optimization techniques: automated exposure control; mA and/or kV adjustment per patient size (includes targeted exams where dose is matched to clinical indication); or iterative reconstruction. Contrast material: OMNIPAQUE 350; Contrast volume: 100 ml; Contrast route: IV; COMPARISON: CT thorax abd/pel CTA 12/20/2018 4:55 PM FINDINGS: Pulmonary arteries: Normal. No pulmonary emboli. Aorta: Unremarkable. No aortic aneurysm. No aortic dissection. Lungs: Minimal dependent changes within the lung bases, likely atelectasis. 3.5 mm nodule within the superior segment of the left lower lobe (axial image 29 of series 4), unchanged. Pleural space: Unremarkable. No pneumothorax. No pleural effusion. Heart: Unremarkable. No cardiomegaly. No pericardial effusion. Stomach and bowel: Moderate gastric hiatus hernia, unchanged. Lymph nodes: Unremarkable. No enlarged lymph nodes. Bones/joints: Mild degenerative spondylosis of the thoracic spine. Sclerotic lesion within the manubrium, unchanged, likely representing bone island. Soft tissues: Right breast saline implant. Smooth low density mass measuring 7.7 cm x 6.6 cm x 3.5 cm within the posterior lateral right chest wall subcutaneous tissues, unchanged. IMPRESSION: 1. No pulmonary embolism. 2. 3.5 mm pulmonary nodule within the superior segment of the left lower lobe, unchanged compared to the prior CT scan performed on 12/20/2018. If the patient is at high risk (history of smoking or of other known risk factors), consider optional CT in 8 months as per Fleischner criteria guidelines. (Nhan et al., Fleischner Society, 2017). Dictated and Authenticated by: Sumit Ryan MD. Ordering:DEO Moss MD
[2019-04-16 18:15] LABS: Troponin I < 0.05 ng/mL (0.00-0.06)
== END 2019-04-16 18:30 | disposition home or self-care (01) ==
PROVIDERS: Emergency Provider Emergency Medicine; PCP Family Medicine
DX: R07.9 Chest pain, unspecified (principal); R79.89 Other specified abnormal findings of blood chemistry; R91.1 Solitary pulmonary nodule; Z87.891 Personal history of nicotine dependence
CPT/HCPCS: 36415; 71275; 80053; 93005; 96374; 96375; 99285; 83735; 83880; 84484; 85025; 85379; 85610; 85730; 93010; J1200; J2930; J3490

== ENCOUNTER 2019-09-14 01:15 | Outpatient (CLI) | payer OTHER, SELFPAY ==
--- NOTE | 2019-09-14 17:01 | DI.DEXA_ITS ---
EXAM: XR DEXA BONE DENSITY W/WO ELZBIETA INDICATION: MENOPAUSE, Z78.0. COMPARISON: XR hip RT AP lat only from 03/02/2019 FINDINGS: Bone mineral density measurements of the lumbar spine correspond to a total T-score of -1.1, in the m ildly osteopenic range. The bone mineral density measurements of the left hip correspond to a total T-score of -0.2 and a femoral neck T-score of -0.8, in the normal range. Left forearm bone mineral d ensity measurements correspond to a total T-score of -1.1 and a T-score of the distal 3rd of -0.2. T he ELZBIETA image shows no evidence of compression fractures. IMPRESSION: Osteopenia of the lumbar spine. Normal bone mineral density of the left hip and left forearm.
== END 2019-09-14 01:35 ==
PROVIDERS: PCP Family Medicine; Visit Provider Family Medicine
DX: M85.88 Other specified disorders of bone density and structure, other site (principal); Z78.0 Asymptomatic menopausal state
CPT/HCPCS: 77080

== ENCOUNTER 2020-03-30 11:49 | Outpatient (CLI) | payer OTHER, SELFPAY ==
--- NOTE | 2020-03-30 11:30 | DI.RAD_ITS ---
EXAM: XR HIP RT AP LAT ONLY CLINICAL HISTORY: R NORBERTO pain TECHNIQUE: COMPARISON: CR XR DEXA BONE DENSITY W/WO ELZBIETA from 09/14/2019 FINDINGS: Two views were obtained and show total hip joint replacement in position. The components appear well seated. No other significant bony abnormality seen. IMPRESSION:
== END 2020-03-30 12:09 ==
PROVIDERS: PCP Family Medicine; Referring Provider Family Medicine; Visit Provider Physician Assistant
DX: M25.551 Pain in right hip (principal); Z96.641 Presence of right artificial hip joint
CPT/HCPCS: 73502

== ENCOUNTER 2020-05-04 01:56 | Outpatient (CLI) | payer OTHER, SELFPAY ==
[2020-05-04 11:13] LABS: Calculated LDL 89 mg/dL (<100); Cholesterol 173 mg/dL (<200); HDL Cholesterol 73 mg/dL (40-60); Triglyceride 56 mg/dL (<150)
== END 2020-05-04 02:16 ==
PROVIDERS: PCP Family Medicine; Visit Provider Internal Medicine Cardiovascular Disease
DX: I25.10 Atherosclerotic heart disease of native coronary artery without angina pectoris (principal)
CPT/HCPCS: 36415; 80061

== ENCOUNTER 2020-09-26 11:05 | Outpatient (REF) | payer OTHER, SELFPAY ==
[2020-09-26 10:21] LABS: Bilirubin Negative (Negative); Blood Trace-intact (Negative); Clarity Clear (Clear); Glucose Negative (Negative); Ketones Negative (Negative); Leukocyte Esterase Small (Negative); Nitrite Negative (Negative); Specific Gravity 1.025 (1.005-1.025); Urobilinogen 0.2 EU/dL (Up TO 0.2)
[2020-09-26 10:34] LABS: Bacteria Few HPF (Negative); C & S Indicated? Yes; Casts Negative LPF (Negative); Crystals Mod Calcium Oxalate HPF (Negative); Epithelial Cells Few HPF (Negative); Mucus Trace (Negative)
== END 2020-09-26 11:25 ==
LOC: LBN 11:05
PROVIDERS: PCP Family Medicine; Visit Provider Family Medicine
DX: R35.0 Frequency of micturition (principal)
CPT/HCPCS: 87077; 81003; 81015; 87086; 87186

== ENCOUNTER 2022-06-11 07:12 | Emergency (ER) | payer OTHER, SELFPAY ==
[2022-06-11] VITALS (60 sets, daily range): BP systolic 110–158; BP diastolic 68–89; PULSE 65–96; RESP 11–25; TEMP 36.7–37; O2SAT 98–99
--- NOTE | 2022-06-11 07:15 | RT.EKG_ITS ---
APPROVED REPORT Exam: Resting ECG Reason for Exam: chest pain Patient Location: E HR:81 bpm ECG Measurements Heart Rate 81 AXIS HI 151 P 64 QRSd 92 QRS 29 QT 374 T 56 QTc 435 Conclusion Sinus rhythm...normal P axis, V-rate 60- 99 Physician: no stemi
--- NOTE | 2022-06-11 07:30 | DI.RAD_ITS ---
Exam(s) XR PORTABLE CHEST AP EXAM: XR PORTABLE CHEST AP CLINICAL HISTORY: chest pain TECHNIQUE: 2D digital imaging was performed of the chest. One image was obtained. An AP view was ob tained. COMPARISON: CR PORTABLE CHEST ONE VIEW from 10/22/2017 FINDINGS: MEDIASTINUM: Normal. HEART: Normal. PULMONARY VASCULATURE: Normal. LUNGS: Clear. PLEURAL SPACE: No pleural effusion or pneumothorax. BONE:Within normal limits for the patient's age. OTHER FINDINGS:Normal. IMPRESSION: No acute pulmonary findings. DATA REPOSITORY: RADIATION DOSE DELIVERED:
[2022-06-11 07:51] LABS: Abs Immature Grans 0.01 10^3/uL (0.0-0.06); Absolute Basophil Count 0.03 10^3/uL (0.0-0.2); Absolute Eosinophil Count 0.17 10^3/uL (0.0-0.7); Absolute Lymphocyte Count 2.04 10^3/uL (1.2-3.4); Absolute Neutrophil Count 3.13 10^3/uL (1.2-6.7); Basophils % 0.5; Eosinophils % 2.9; HCT 40.8 % (36.0-46.0); HGB 13.6 g/dL (11.2-15.7); Immature Grans % 0.2; Lymphocytes % 35.3; MCH 30.2 pg (27.0-33.0); MCHC 33.3 % (32.0-36.0); MCV 91 fL (80-95); MPV 10.1 fL (8.0-11.0); Monocytes % 6.9; Neutrophils % 54.2; Platelet Count 163 10^3/uL (130-400); RDW 12.5 % (11.7-14.6); RDW-SD 41.4 fL; WBC 5.78 10^3/uL (4.4-10.8)
--- NOTE | 2022-06-11 07:57 | W.ED.GENAD ---
Discharge Plan Disposition Patient Disposition: STILL A PATIENT Discharge Details Chief Complaint: Chest Pain Clinical Impression: Acute non-ST elevation myocardial infarction (NSTEMI) Primary Care Provider: Cheri Montelongo ED Provider: Laci Huff Home Meds and New Rx's Prescriptions: No Action rosuvastatin 20 mg tablet 10 mg PO DAILY cholecalciferol (vitamin D3) 25 mcg (1,000 unit) capsule 25 mcg PO DAILY temazepam 7.5 mg capsule 7.5 mg PO QHS PRN (Reason: sleep) zaleplon 5 mg capsule 5 mg PO QHS PRN Rx Instructions: must avoid high-fat meal/food immediately before taking dose Womens multivitamin 1 tab PO DAILY vitamin B complex 1 EACH capsule 1 ea PO DAILY metoprolol succinate [Toprol XL] 25 mg tablet extended release 24 hr 12.5 mg PO BID Qty: 90 6RF nitroglycerin 0.4 mg tablet, sublingual 0.4 mg SL Q5-15M PRN (Reason: chest pain) Qty: 9 12RF Rx Instructions: until response; do not exceed 3 doses per episode calcium carbonate 600 mg calcium (1,500 mg) tablet 600 mg PO BID albuterol sulfate 8.5 GM HFA aerosol inhaler 1 puff .Route PRN PRN omeprazole 20 mg capsule,delayed release(DR/EC) 20 mg PO .QOD acetaminophen 500 mg tablet 1,000 mg PO Q8H PRN (Reason: pain) Qty: 90 3RF aspirin [Aspir-81] 81 mg tablet,delayed release (DR/EC) 81 mg PO DAILY gabapentin 100 mg capsule 1 cap PO DAILY Medical Decision Making 805 -- 67-year-old female with history of coronary artery disease here with chest pain that started this morning around 530, initially moderate and now mild after Tums, Tylenol, nitroglycerin x2 and then Ativan. Patient is saturating well in no respiratory distress. Mildly hypertensive. EKG was reviewed and interpreted by me: Sinus rhythm 81 bpm, low voltage precordial leads, no ST elevation, nondiagnostic. Please see report. Consider ACS. Please to check troponin. -- Initial troponin neg. Delta trop elevated 1999. Will give heparin bolus and infusion, plavix 600mg. -- [place] [facility] [place]. They are unable to accept due to capacity. I requested consultation with cardiology awaiting callback. EKGs were sent for review. [id number] -- I contacted [facility] transfer center to request transfer and awaiting callback from cardiology. Patient is experiencing recurrent chest discomfort. Will give nitro SL. Patient also experiencing some anxiety and requesting benzodiazepine. I will give Ativan 0.5 mg p.o. Lab Data Lab results reviewed: Yes I reviewed the patient's lab results. Labs: Laboratory Tests Range/Units 06/11/22 06/11/22 06/11/22 07:27 07:27 07:27 WBC (4.4-10.8) 10^3/uL 5.78 RBC (3.93-5.22) 10^6/uL 4.50 Hgb (11.2-15.7) g/dL 13.6 Hct (36.0-46.0) % 40.8 MCV (80-95) fL 91 MCH (27.0-33.0) pg 30.2 MCHC (32.0-36.0) % 33.3 RDW (11.7-14.6) % 12.5 Plt Count (130-400) 10^3/uL 163 MPV (8.0-11.0) fL 10.1 Immature Gran % 0.2 Neutrophils % 54.2 Lymphocytes % 35.3 Monocytes % 6.9 Eosinophils % 2.9 Basophils % 0.5 Nucleated RBC % (0.0-0.3) % 0.0 Absolute Neutrophils (1.2-6.7) 10^3/uL 3.13 Absolute Lymphocytes (1.2-3.4) 10^3/uL 2.04 Absolute Monocytes (0.1-0.8) 10^3/uL 0.40 Absolute Eosinophils (0.0-0.7) 10^3/uL 0.17 Absolute Basophils (0.0-0.2) 10^3/uL 0.03 Sodium (136-145) mmol/L 141 Potassium (3.5-5.1) mmol/L 3.9 Chloride (98-107) mmol/L 105 Carbon Dioxide (21.0-32.0) mmol/L 30.9 Anion Gap (3-11) mmol/L 5.1 BUN (7-18) mg/dL 17 Creatinine (0.55-1.02) mg/dL 1.0 Est GFR (CKD-EPI 2020) (mL/min/1.73m2) 62.13 Glucose (74-106) mg/dL 107 H Calcium (8.5-10.1) mg/dL 8.9 Magnesium (1.8-2.4) mg/dL 1.9 Total Bilirubin (0.2-1.0) mg/dL 0.5 AST (15-37) U/L 22 ALT (14-59) U/L 23 Alkaline Phosphatase (46-116) U/L 60 Troponin I (<or=60) ng/L < 50 Total Protein (6.4-8.2) g/dL 7.3 Albumin (3.4-5.0) g/dL 3.6 Lipase (73-393) U/L 83 COVID-19 Source SARS-CoV-2 (PCR) (Negative) Range/Units 06/11/22 06/11/22 08:07 11:03 WBC (4.4-10.8) 10^3/uL RBC (3.93-5.22) 10^6/uL Hgb (11.2-15.7) g/dL Hct (36.0-46.0) % MCV (80-95) fL MCH (27.0-33.0) pg MCHC (32.0-36.0) % RDW (11.7-14.6) % Plt Count (130-400) 10^3/uL MPV (8.0-11.0) fL Immature Gran % Neutrophils % Lymphocytes % Monocytes % Eosinophils % Basophils % Nucleated RBC % (0.0-0.3) % Absolute Neutrophils (1.2-6.7) 10^3/uL Absolute Lymphocytes (1.2-3.4) 10^3/uL Absolute Monocytes (0.1-0.8) 10^3/uL Absolute Eosinophils (0.0-0.7) 10^3/uL Absolute Basophils (0.0-0.2) 10^3/uL Sodium (136-145) mmol/L Potassium (3.5-5.1) mmol/L Chloride (98-107) mmol/L Carbon Dioxide (21.0-32.0) mmol/L Anion Gap (3-11) mmol/L BUN (7-18) mg/dL Creatinine (0.55-1.02) mg/dL Est GFR (CKD-EPI 2020) (mL/min/1.73m2) Glucose (74-106) mg/dL Calcium (8.5-10.1) mg/dL Magnesium (1.8-2.4) mg/dL Total Bilirubin (0.2-1.0) mg/dL AST (15-37) U/L ALT (14-59) U/L Alkaline Phosphatase (46-116) U/L Troponin I (<or=60) ng/L 2057 H* Total Protein (6.4-8.2) g/dL Albumin (3.4-5.0) g/dL Lipase (73-393) U/L COVID-19 Source Nasal/Nares SARS-CoV-2 (PCR) (Negative) Negative HPI General Mode of arrival: ambulatory. Date/Time Provider Initiated Documentation: 06/11/22 07:27. Limitations to Documentation: no limitations. Information obtained by: patient. HPI Narrative: 67yo female with history of coronary artery disease, anxiety, ductal carcinoma in situ of breast, here with chief complaint of chest pain. Epigastric/retrosternal chest pain started this morning around 530 when she woke up. Pain described as a dull ache. Pain does radiate to her back. Pain was moderate and now mild. Patient notes she initially took Tylenol, Tums and then 2 doses of nitroglycerin without relief. She then took a dose of Ativan. She denies associated shortness of breath. No leg swelling. No abdominal pain or nausea. Related Data Home Medications Medication Instructions Recorded Confirmed Womens Multivitamin 1 tab PO DAILY 03/07/13 03/30/20 albuterol sulfate 90 mcg/actuation 1 puff .Route PRN PRN 08/09/14 06/11/22 aerosol inhaler vitamin B complex 1 ea PO DAILY 03/04/17 06/11/22 acetaminophen 500 mg tablet 1,000 mg PO Q8H PRN pain #90 tabs 02/18/19 06/11/22 aspirin 81 mg tablet,delayed 81 mg PO DAILY 11/10/19 06/11/22 release (Aspir-) metoprolol succinate 25 mg 12.5 mg PO BID #90 tab-caps 04/23/20 06/11/22 tablet,extended release 24 hr (Toprol XL) nitroglycerin 0.4 mg sublingual 0.4 mg sublingual Q5-15M PRN chest 04/23/20 06/11/22 tablet pain #9 tabs calcium carbonate 600 mg calcium 600 mg PO BID 01/03/21 06/11/22 (1,500 mg) tablet cholecalciferol (vitamin D3) 25 25 mcg PO DAILY 01/03/21 06/11/22 mcg (1,000 unit) capsule omeprazole 20 mg capsule,delayed 20 mg PO .QOD 01/03/21 06/11/22 release rosuvastatin 20 mg tablet 10 mg PO DAILY 01/03/21 06/11/22 temazepam 7.5 mg capsule 7.5 mg PO QHS PRN sleep 01/03/21 06/11/22 zaleplon 5 mg capsule 5 mg PO QHS PRN 01/03/21 gabapentin 100 mg capsule 1 cap PO DAILY 06/11/22 06/11/22 Previous Rx's Medication Instructions Recorded acetaminophen 500 mg tablet 1,000 mg PO Q8H PRN pain #90 tabs 02/18/19 metoprolol succinate 25 mg 12.5 mg PO BID #90 tab-caps 04/23/20 tablet,extended release 24 hr (Toprol XL) nitroglycerin 0.4 mg sublingual 0.4 mg sublingual Q5-15M PRN chest 04/23/20 tablet pain #9 tabs Allergies Allergy/AdvReac Type Severity Reaction Status Date / Time amoxicillin Allergy Intermediate HIVES Unverified 01/03/21 10:47 Penicillins Allergy Intermediate HIVES Unverified 01/03/21 10:47 cephalexin monohydrate Allergy Skin Rash Unverified 01/03/21 10:47 [From Keflex] codeine [Codeine] AdvReac Mild ABDOMINAL Unverified 01/03/21 10:47 PAIN General Stated Complaint: Chest Pain LAKHWINDER: 2 Review of Systems All systems reviewed & are unremarkable except as noted in HPI and below Constitutional Constitutional: Denies fever(s) Cardiovascular Cardiovascular: Reports chest pain and Denies dyspnea Respiratory Respiratory: Denies dyspnea PFSH All Active Problems (Updated 06/11/22 @ 12:40 by Laci Huff MD) Acute non-ST elevation myocardial infarction (NSTEMI) (Acute) Strain of hip adductor muscle (Acute) Status post total replacement of right hip (Chronic ~02/17/19) Anxiety (Acute 03/07/13) 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) History of bilateral mastectomy (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) Atypical chest pain (Acute) CAD (coronary artery disease) (Chronic) Medical History (Updated 06/11/22 @ 12:40 by Laci Huff MD) Anxiety disorder prescribed citalopram after her NSTEMI Asthma Breast CA CAD (coronary artery disease) [place] 11/2014, 10/2017 GERD (gastroesophageal reflux disease) History of postoperative nausea and vomiting Infiltrating ductal carcinoma of breast, stage 1 Bilateral - 2000 Osteoarthritis of hips, bilateral Surgical History Breast, Mastectomy Bilateral Bilateral DCIS with reconstructions [place]ical [place] History of colonoscopy Family History Other Diabetes Heart disease Personal history of malignant neoplasm Social History Smoking/Tobacco Use Status: Former Tobacco Use Quit Date: 10/05/79 Smoking risk assessment performed?: Yes Alcohol Intake: former Year quit: 2018 Details: formerly drank 1 glass of wine w/ dinner 3 to 5 night/wk, abstinent 07/2018 Drug use: Never Substance use type: does not use Current gender identity: female What is your relationship status?: Panel score (0-1 are the most socially isolated patients): 1 What type of physical activity do you participate in: walking Duration: 15-30 minutes/day Frequency: 3-4 times per week Do you feel safe at home: Yes Do you feel safe in your relationship?: Yes Exam Const General: cooperative and no acute distress HENMT Head: normocephalic and atraumatic Mouth: moist mucous membranes Eyes Conjunctivae: normal conjunctivae Sclera: normal sclerae Neck Neck: trachea midline and supple Resp Auscultation: clear to auscultation bilaterally, no rales, no rhonchi and no wheezes Cardio Rate: regular rate and not tachycardic Rhythm: regular rhythm GI Palpation: soft, not firm, no guarding, no masses, not rigid and nontender Skin General skin exam: no rashes or lesions noted Neuro General: patient alert, patient awake, patient oriented x3 and tone normal Extrem General: no calf tenderness and no edema Psych Appearance: grossly normal Mental Status: mental status grossly normal Speech and Movement: speech and movement normal Course Vital Signs Vital signs: Vital Signs Temperature 36.7 C 06/11/22 07:23 Pulse 81 06/11/22 07:23 Respiratory Rate 17 06/11/22 07:23 Blood Pressure 158/89 H 06/11/22 07:23 Pulse Oximetry 98 06/11/22 07:23 Temperature 36.7 C 06/11/22 07:23 Temperature Source Temporal Artery Scan 06/11/22 07:23 Pulse 81 06/11/22 07:23 Respiratory Rate 17 06/11/22 07:33 Respiratory Effort Non-Labored 06/11/22 07:33 Respiratory Depth Normal 06/11/22 07:33 Respiratory Pattern Normal 06/11/22 07:33 Blood Pressure 158/89 H 06/11/22 07:23 Blood Pressure Position Supine 06/11/22 07:23 Pulse Oximetry 98 06/11/22 07:23 Oxygen Delivery Method Room Air 06/11/22 07:23 Oxygen Flow Rate 0 06/11/22 07:23 Pain Level 2 06/11/22 07:23 Lab/Test Results Lab/Test Results: Laboratory Tests Range/Units 06/11/22 07:27 WBC (4.4-10.8) 10^3/uL 5.78 RBC (3.93-5.22) 10^6/uL 4.50 Hgb (11.2-15.7) g/dL 13.6 Hct (36.0-46.0) % 40.8 MCV (80-95) fL 91 MCH (27.0-33.0) pg 30.2 MCHC (32.0-36.0) % 33.3 RDW (11.7-14.6) % 12.5 Plt Count (130-400) 10^3/uL 163 MPV (8.0-11.0) fL 10.1 Immature Gran % 0.2 Neutrophils % 54.2 Lymphocytes % 35.3 Monocytes % 6.9 Eosinophils % 2.9 Basophils % 0.5 Nucleated RBC % (0.0-0.3) % 0.0 Absolute Neutrophils (1.2-6.7) 10^3/uL 3.13 Absolute Lymphocytes (1.2-3.4) 10^3/uL 2.04 Absolute Monocytes (0.1-0.8) 10^3/uL 0.40 Absolute Eosinophils (0.0-0.7) 10^3/uL 0.17 Absolute Basophils (0.0-0.2) 10^3/uL 0.03
[2022-06-11 08:08] LABS: ALT 23 U/L (14-59); AST 22 U/L (15-37); Albumin 3.6 g/dL (3.4-5.0); Alkaline Phosphatase 60 U/L (46-116); Anion Gap 5.1 mmol/L (3-11); BUN 17 mg/dL (7-18); Bilirubin, Total 0.5 mg/dL (0.2-1.0); CO2 30.9 mmol/L (21.0-32.0); Calcium 8.9 mg/dL (8.5-10.1); Chloride 105 mmol/L (98-107); Estimated GFR 62.13 (mL/min/1.73m2); Glucose 107 mg/dL (74-106); Magnesium 1.9 mg/dL (1.8-2.4); Potassium 3.9 mmol/L (3.5-5.1); Sodium 141 mmol/L (136-145); Total Protein 7.3 g/dL (6.4-8.2); Troponin I < 50 ng/L (<or=60)
[2022-06-11 08:10] LABS: Source Nasal/Nares
[2022-06-11] MEDS: Aspirin 325 MG TAB PO (08:11)
[2022-06-11 08:23] LABS: Lipase 83 U/L (73-393)
--- NOTE | 2022-06-11 11:00 | RT.EKG_ITS ---
APPROVED REPORT Exam: Resting ECG Reason for Exam: chest pain] Patient Location: E HR:68 bpm ECG Measurements Heart Rate 68 AXIS VT 149 P 56 QRSd 87 QRS 22 QT 403 T 26 QTc 430 Conclusion Sinus rhythm...normal P axis, V-rate 60- 99 Low voltage, precordial leads...precordial leads <1.0mV
[2022-06-11 11:33] LABS: COVID-19 PCR Negative (Negative)
[2022-06-11] MEDS: Clopidogrel 300 MG TAB 600 MG PO (12:02)
--- NOTE | 2022-06-11 12:30 | RT.EKG_ITS ---
APPROVED REPORT Exam: Resting ECG Reason for Exam: chest pain Patient Location: E HR:81 bpm ECG Measurements Heart Rate 81 AXIS IN 145 P 64 QRSd 88 QRS 26 QT 381 T 26 QTc 443 Conclusion Sinus rhythm...normal P axis, V-rate 60- 99 Low voltage, precordial leads...precordial leads <1.0mV
[2022-06-11] MEDS: LORazepam 0.5 MG TAB PO (12:35)
[2022-06-11] MEDS: nitroGLYcerin 0.4 MG TAB SL ×2 (12:36→12:57)
--- NOTE | 2022-06-11 12:48 | ED.PROG_ITS ---
Date of service: 06/11/22 Time of Service: 12:48 Critical Care Time Critical Care Time Critical Care Time: Yes Total Critical Care Time: 45 Attestation: I spent greater than 45 minutes addressing this patient's immediate life threats. Please see MDM section of note. This time was spent engaged in work directly related to the patient's care, exclusive of separate procedures, and failure to initiate these interventions would have likely resulted in clinically significant or life threatening deterioration in the patient's condition. Sign Out Sign Out Data: Sign Out Comment: Patient is here with NSTEMI, patient has received heparin bolus and is receiving infusion. Plavix and aspirin given. Patient initially h ad some discomfort on arrival, pain resolved spontaneously, discomfort now recurring. Now giving nitro SL. Repeat EKG pending. Disposition is pending discussion with [facility] cardiology. Last updated by Laci Huff MD at 06/11/22 12:42 Discharge Plan Disposition Patient Disposition: STILL A PATIENT Discharge Details Clinical Impression: Acute non-ST elevation myocardial infarction (NSTEMI) Primary Care Provider: Cheri Montelongo ED Provider: Laci Huff Home Meds and New Rx's Prescriptions: No Action rosuvastatin 20 mg tablet 10 mg PO DAILY cholecalciferol (vitamin D3) 25 mcg (1,000 unit) capsule 25 mcg PO DAILY temazepam 7.5 mg capsule 7.5 mg PO QHS PRN (Reason: sleep) zaleplon 5 mg capsule 5 mg PO QHS PRN Rx Instructions: must avoid high-fat meal/food immediately before taking dose Womens multivitamin 1 tab PO DAILY vitamin B complex 1 EACH capsule 1 ea PO DAILY metoprolol succinate [Toprol XL] 25 mg tablet extended release 24 hr 12.5 mg PO BID Qty: 90 6RF nitroglycerin 0.4 mg tablet, sublingual 0.4 mg SL Q5-15M PRN (Reason: chest pain) Qty: 9 12RF Rx Instructions: until response; do not exceed 3 doses per episode calcium carbonate 600 mg calcium (1,500 mg) tablet 600 mg PO BID albuterol sulfate 8.5 GM HFA aerosol inhaler 1 puff .Route PRN PRN omeprazole 20 mg capsule,delayed release(DR/EC) 20 mg PO .QOD acetaminophen 500 mg tablet 1,000 mg PO Q8H PRN (Reason: pain) Qty: 90 3RF aspirin [Aspir-81] 81 mg tablet,delayed release (DR/EC) 81 mg PO DAILY gabapentin 100 mg capsule 1 cap PO DAILY
[2022-06-11] MEDS: nitroGLYcerin in D5W 50 MG/250 ML BTL IV (13:59)
[2022-06-11 14:17] LABS: Troponin I 2057 ng/L (<or=60)
--- NOTE | 2022-06-11 15:03 | W.EDPROG ---
Date of service: 06/11/22 Time of Service: 12:30 Medical Decision Making Patient signed out to me at shift change with transfer to facility with seed analysis laboratory assistant capability pending; patient already refused by [facility] and [facility] [place] due to capacity. Pt requesting her usual dose of lopressor 12.5 mg for increasing HR (now ~90). I discussed Pt with Dr. Mackenzie of cardiology at [facility], who states Pt okay for transfer, okay with Pt receiving 12.5 lopressor, no further acute recommendations. I discussed Pt with Dr. Villa of medicine at [facility], who accepted Pt for transfer. Pt on nitro gtt with no current chest pain. Pt left with medics without further incident. Medical Records Medical records reviewed: Yes I reviewed the patient's medical records. Lab Data Lab results reviewed: Yes I reviewed the patient's lab results. Sign Out Sign Out Data: Sign Out Comment: Patient is here with NSTEMI, patient has received heparin bolus and is receiving infusion. Plavix and aspirin given. Patient initially had some discomfort on arrival, pain resolved spontaneously, discomfort now recurring. Now giving nitro SL. Repeat EKG pending. Disposition is pending discussion with [facility] cardiology. Last updated by Laci Huff MD at 06/11/22 12:42 Discharge Plan Disposition Patient Disposition: [facility] Discharge Details Chief Complaint: Chest Pain Clinical Impression: Acute non-ST elevation myocardial infarction (NSTEMI) Primary Care Provider: Cheri Montelongo ED Provider: Angeles Huff Home Meds and New Rx's Prescriptions: No Action rosuvastatin 20 mg tablet 10 mg PO DAILY cholecalciferol (vitamin D3) 25 mcg (1,000 unit) capsule 25 mcg PO DAILY temazepam 7.5 mg capsule 7.5 mg PO QHS PRN (Reason: sleep) zaleplon 5 mg capsule 5 mg PO QHS PRN Rx Instructions: must avoid high-fat meal/food immediately before taking dose Womens multivitamin 1 tab PO DAILY vitamin B complex 1 EACH capsule 1 ea PO DAILY metoprolol succinate [Toprol XL] 25 mg tablet extended release 24 hr 12.5 mg PO BID Qty: 90 6RF nitroglycerin 0.4 mg tablet, sublingual 0.4 mg SL Q5-15M PRN (Reason: chest pain) Qty: 9 12RF Rx Instructions: until response; do not exceed 3 doses per episode calcium carbonate 600 mg calcium (1,500 mg) tablet 600 mg PO BID albuterol sulfate 8.5 GM HFA aerosol inhaler 1 puff .Route PRN PRN omeprazole 20 mg capsule,delayed release(DR/EC) 20 mg PO .QOD acetaminophen 500 mg tablet 1,000 mg PO Q8H PRN (Reason: pain) Qty: 90 3RF aspirin [Aspir-81] 81 mg tablet,delayed release (DR/EC) 81 mg PO DAILY gabapentin 100 mg capsule 1 cap PO DAILY Discharge Data Discharge Date/Time-TO BE ENTERED AT DEPARTURE: 06/11/22 16:05
[2022-06-11] MEDS: Metoprolol 12.5 MG TAB PO (15:42)
[2022-06-11] MEDS: Acetaminophen 500 MG TAB 1000 MG PO (16:04)
== END 2022-06-11 16:05 ==
PROVIDERS: Student in an Organized Health Care Education/Training Program; Emergency Provider Student in an Organized Health Care Education/Training Program; PCP Family Medicine
DX: I21.4 Non-ST elevation (NSTEMI) myocardial infarction (principal); I25.10 Atherosclerotic heart disease of native coronary artery without angina pectoris; Z87.891 Personal history of nicotine dependence; Z20.822 Contact with and (suspected) exposure to COVID-19
CPT/HCPCS: 36415; 80053; 83690; 87635; 93005; 96365; 96366; 96368; 99291; 71045; 83735; 84484; 85025; 93010; J3490

== ENCOUNTER 2022-09-10 00:39 | Emergency (ER) | payer OTHER, SELFPAY ==
[2022-09-10] VITALS (18 sets, daily range): BP systolic 147–158; BP diastolic 88–98; PULSE 72–87; RESP 15–32; TEMP 36.3–37.2; O2SAT 96–99
--- NOTE | 2022-09-10 00:30 | RT.EKG_ITS ---
APPROVED REPORT Exam: Resting ECG Reason for Exam: Tachy Patient Location: E HR:77 bpm ECG Measurements Heart Rate 77 AXIS NJ 152 P 59 QRSd 91 QRS 39 QT 380 T 29 QTc 432 Conclusion Sinus rhythm...normal P axis, V-rate 60- 99 Ventricular premature complex...V complex w/ short R-R interval Physician: no stemi, unchanged inverted t wave in III and V1
[2022-09-10 01:05] LABS: Abs Immature Grans 0.02 10^3/uL (0.0-0.06); Absolute Basophil Count 0.04 10^3/uL (0.0-0.2); Absolute Eosinophil Count 0.26 10^3/uL (0.0-0.7); Absolute Lymphocyte Count 2.89 10^3/uL (1.2-3.4); Absolute Monocyte Count 0.57 10^3/uL (0.1-0.8); Absolute Neutrophil Count 3.55 10^3/uL (1.2-6.7); Basophils % 0.5; Eosinophils % 3.5; HCT 39.3 % (36.0-46.0); HGB 13.1 g/dL (11.2-15.7); Immature Grans % 0.3; Lymphocytes % 39.4; MCH 30.5 pg (27.0-33.0); MCHC 33.3 % (32.0-36.0); MCV 92 fL (80-95); MPV 9.7 fL (8.0-11.0); Monocytes % 7.8; Neutrophils % 48.5; Platelet Count 177 10^3/uL (130-400); RBC 4.29 10^6/uL (3.93-5.22); RDW 12.6 % (11.7-14.6); RDW-SD 42.3 fL; WBC 7.33 10^3/uL (4.4-10.8)
[2022-09-10] MEDS: Normal Saline 500 ML IV (01:07)
--- NOTE | 2022-09-10 01:15 | DI.RAD_ITS ---
Exam(s) XR PORTABLE CHEST AP EXAM: XR PORTABLE CHEST AP CLINICAL HISTORY: cough, r/o pneumonia. TECHNIQUE: 2D digital imaging was performed. COMPARISON: CR XR PORTABLE CHEST AP from 06/11/2022 FINDINGS: LUNGS: Clear. No pleural abnormality seen. HEART: Normal. MEDIASTINUM: Normal. OTHER FINDINGS: Multiple surgical clips noted overlying left hilum and right lower thorax. IMPRESSION: No acute pulmonary findings. DATA REPOSITORY: RADIATION DOSE DELIVERED: Total DLP
[2022-09-10 01:18] LABS: PTT Activated 25.6 sec (21.0-27.5); Prothrombin Time 9.8 sec (9.3-11.0)
--- NOTE | 2022-09-10 01:20 | ED.GENADUL_ITS ---
Discharge Plan Disposition Patient Disposition: Home Condition: Good Discharge Details Clinical Impression: Palpitation Primary Care Provider: Cheri Montelongo ED Provider: James Mayes Home Meds and New Rx's Prescriptions: No Action rosuvastatin 20 mg tablet 10 mg PO DAILY cholecalciferol (vitamin D3) 25 mcg (1,000 unit) capsule 25 mcg PO DAILY temazepam 7.5 mg capsule 7.5 mg PO QHS PRN (Reason: sleep) zaleplon 5 mg capsule 5 mg PO QHS PRN Rx Instructions: must avoid high-fat meal/food immediately before taking dose Womens multivitamin 1 tab PO DAILY vitamin B complex 1 EACH capsule 1 ea PO DAILY metoprolol succinate [Toprol XL] 25 mg tablet extended release 24 hr 12.5 mg PO BID Qty: 90 6RF nitroglycerin 0.4 mg tablet, sublingual 0.4 mg SL Q5-15M PRN (Reason: chest pain) Qty: 9 12RF Rx Instructions: until response; do not exceed 3 doses per episode calcium carbonate 600 mg calcium (1,500 mg) tablet 600 mg PO BID albuterol sulfate 8.5 GM HFA aerosol inhaler 1 puff .Route PRN PRN omeprazole 20 mg capsule,delayed release(DR/EC) 20 mg PO .QOD acetaminophen 500 mg tablet 1,000 mg PO Q8H PRN (Reason: pain) Qty: 90 3RF aspirin [Aspir-81] 81 mg tablet,delayed release (DR/EC) 81 mg PO DAILY gabapentin 100 mg capsule 1 cap PO DAILY Discharge Instructions Additional Instructions: At this time your work-up is stable and shows no evidence of significant cardiac abnormality. I would encourage you to use the Xopenex inhaler instead of the albuterol inhaler to help decrease the likelihood of cardiac ectopy and increased heart rate. Please use the Symbicort inhaler to help with your cough. You will be contacted by respiratory therapy to set up an appointment to apply your Holter monitor. If you notice any worsening of your symptoms, or any new symptoms such as vomiting, diarrhea, fever, chills, shortness of breath, chest pain, numbness, weakness, or fainting , please return immediately to the emergency department for reevaluation. Please follow up with your primary care provider as soon as possible for reassessment and reevaluation. As always, it was a pleasure participating in your medical care today. Referrals: Cheri Montelongo [Primary Care Provider] - Discharge Orders Other Ambulatory Orders: Holter Monitor (Routine) Timeframe: 1 Week Facility: [facility] - Location: Respiratory Therapy Ordered By: James Mayes Medical Decision Making This is a pleasant 67-year-old female with a past medical history of NSTEMI x3 without any stenting intervention, her most recent episode being 2 months ago where she had SCAD. Past medical history is also positive for breast cancer, GERD. He presents today with her Dr. Bertrand for evaluation of palpitations and an elevated heart rate. Over the last few days she has had a mild upper respiratory infection, she felt some mild tightness in her chest in general which she often gets when she has a viral etiology, and so she has been taking her inhaler/albuterol every 4-6 hours. This evening at midnight she woke up out of sleep and felt that her heart rate was elevated and she felt a little atypical. She did have 2 episodes of loose stool, but no chest pain, tearing or ripping sensation, or chest heaviness. Her checked her heart rate and noticed it to be regular in the 140s. The decision was made to come to the ER and be evaluated. Upon their arrival to the emergency department the patient's heart rate normalized and she otherwise felt well. She denies any other complaints at this time. Aside for a mild runny nose and congestion she is otherwise asymptomatic. Physical exam demonstrates well-appearing female, vital signs notably stable, no evidence of tachycardia or hypotension. Laboratory work-up demonstrates normal electrolytes. BUN slightly high at 19 with a creatinine of 1 suggestive of very mild dehydration. proBNP is 377 suggesting no signs of heart strain, troponin normal. Thyroid function normal. Bedside echo demonstrates trace pericardial effusion, ejection fraction appears to be appropriate, but exam was slightly technically difficult. I suspect the cause of the patient's symptoms were likely related to the increased albuterol use, and her symptoms appear inconsistent with PE, significant electrolyte abnormality or other life- threatening etiology currently. EKG is stable and unchanged. I do feel the patient would benefit from an outpatient Holter monitor. We will continue to monitor closely gently rehydrate and reassess. 4:38 AM EKG stable, no significant abnormality. Laboratory work-up demonstrates normal electrolytes, renal function, proBNP stable since with no suggestions of heart strain. Troponin normal, delta troponin normal, thyroid function normal. Patient feels well, symptoms have remained stable here in the ED. Suspect the cause of her symptoms was likely increased albuterol use with mild strain from current viral infection. Chest x-ray negative. Will recommend transitioning from albuterol to Xopenex, and using steroid inhaler. Discussed red flags which to return. We will schedule outpatient Holter monitor for continued cardiac monitoring. I have extensively reviewed the treatment plan and discharge inst ructions with the patient and their family. I have addressed all patient concerns at this time. The patient and family was made aware of what symptoms to monitor for that would warrant a return to the emergency department. Discussed the plan with the patient and family, they demonstrate verbal understanding and agreement with our assessment and plan at this time. The documentation in this chart was dictated using [employer] dictation software. Please excuse any dictation errors. FINDINGS: Tubes, catheters and devices: Monitoring wires noted. Lungs: Unremarkable. No consolidation. Pulmonary vessels are not congested. Pleural spaces: Unremarkable. No pleural effusion. No pneumothorax. Heart/Mediastinum: Unremarkable. No cardiomegaly. Bones/joints: Unremarkable. IMPRESSION: No acute cardiopulmonary abnormality. Thank you for allowing us to participate in the care of your patient. Dictated and Authenticated by: Ajya Tran MD 09/10/2022 1:57 AM Eastern Time ([place] & [place]) Sign Out No HPI General Date/Time Provider Initiated Documentation: 09/10/22 00:42 . HPI Narrative: This is a pleasant 67-year-old female with a past medical history of NSTEMI x3 without any stenting intervention, her most recent episode being 2 months ago where she had SCAD. Past medical history is also positive for breast cancer, GERD. He presents today with her Dr. Bertrand for evaluation of palpitations and an elevated heart rate. Over the last few days she has had a mild upper respiratory infection, she felt some mild tightness in her chest in general which she often gets when she has a viral etiology, and so she has been taking her inhaler/albuterol every 4-6 hours. This evening at midnight she woke up out of sleep and felt that her heart rate was elevated and she felt a little atypical. She did have 2 episodes of loose stool, but no chest pain, tearing or ripping sensation, or chest heaviness. Her checked her heart rate and noticed it to be regular in the 140s. The decision was made to come to the ER and be evaluated. Upon their arrival to the emergency department the patient's heart rate normalized and she otherwise felt well. She denies any other complaints at this time. Aside for a mild runny nose and congestion she is otherwise asymptomatic. Related Data Home Medications Medication Instructions Recorded Confirmed Womens Multivitamin 1 tab PO DAILY 03/07/13 03/30/20 albuterol sulfate 90 mcg/actuation 1 puff .Route PRN PRN 08/09/14 06/11/22 aerosol inhaler vitamin B complex 1 ea PO DAILY 03/04/17 06/11/22 acetaminophen 500 mg tablet 1,000 mg PO Q8H PRN pain #90 tabs 02/18/19 06/11/22 aspirin 81 mg tablet,delayed 81 mg PO DAILY 11/10/19 06/11/22 release (Aspir-) metoprolol succinate 25 mg 12.5 mg PO BID #90 tab-caps 04/23/20 06/11/22 tablet,extended release 24 hr (Toprol XL) nitroglycerin 0.4 mg sublingual 0.4 mg sublingual Q5-15M PRN chest 04/23/20 06/11/22 tablet pain #9 tabs calcium carbonate 600 mg calcium 600 mg PO BID 01/03/21 06/11/22 (1,500 mg) tablet cholecalciferol (vitamin D3) 25 25 mcg PO DAILY 01/03/21 06/11/22 mcg (1,000 unit) capsule omeprazole 20 mg capsule,delayed 20 mg PO .QOD 01/03/21 06/11/22 release rosuvastatin 20 mg tablet 10 mg PO DAILY 01/03/21 06/11/22 temazepam 7.5 mg capsule 7.5 mg PO QHS PRN sleep 01/03/21 06/11/22 zaleplon 5 mg capsule 5 mg PO QHS PRN 01/03/21 gabapentin 100 mg capsule 1 cap PO DAILY 06/11/22 06/11/22 Previous Rx's Medication Instructions Recorded acetaminophen 500 mg tablet 1,000 mg PO Q8H PRN pain #90 tabs 02/18/19 metoprolol succinate 25 mg 12.5 mg PO BID #90 tab-caps 04/23/20 tablet,extended release 24 hr (Toprol XL) nitroglycerin 0.4 mg sublingual 0.4 mg sublingual Q5-15M PRN chest 04/23/20 tablet pain #9 tabs Allergies Allergy/AdvReac Type Severity Reaction Status Date / Time amoxicillin Allergy Intermediate HIVES Unverified 09/10/22 00:56 Penicillins Allergy Intermediate HIVES Unverified 09/10/22 00:56 cephalexin monohydrate Allergy Skin Rash Unverified 09/10/22 00:56 [From Keflex] codeine [Codeine] AdvReac Mild ABDOMINAL Unverified 09/10/22 00:56 PAIN General Stated Complaint: GenMedical LAKHWINDER: 3 Review of Systems All systems reviewed & are unremarkable except as noted in HPI and below PFSH All Active Problems (Updated 09/10/22 @ 03:07 by James Mayes DO) Palpitation (Acute) Strain of hip adductor muscle (Acute) Status post total replacement of right hip (Chronic ~02/17/19) Anxiety (Acute 03/07/13) 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) History of bilateral mastectomy (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) Atypical chest pain (Acute) CAD (coronary artery disease) (Chronic) Medical History (Updated 09/10/22 @ 03:07 by James Mayes DO) Anxiety disorder prescribed citalopram after her NSTEMI Asthma Breast CA CAD (coronary artery disease) [place] 11/2014, 10/2017 GERD (gastroesophageal reflux disease) History of postoperative nausea and vomiting Infiltrating ductal carcinoma of breast, stage 1 Bilateral - 1999, 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 LEEP History of colonoscopy Family History Other Diabetes Heart disease Personal history of malignant neoplasm Social History Smoking/Tobacco Use Status: Former Tobacco Use Quit Date: 10/05/79 Smoking risk assessment performed?: Yes Alcohol Intake: former Year quit: 2018 Details: formerly drank 1 glass of wine w/ dinner 3 to 5 night/wk, abstinent 07/2018 Drug use: Never Substance use type: does not use Current gender identity: female What is your relationship status?: Panel score (0-1 are the most socially isolated patients): 1 What type of physical activity do you participate in: walking Duration: 15-30 minutes/day Frequency: 3-4 times per week Do you feel safe at home: Yes Do you feel safe in your relationship?: Yes Exam Narrative Exam Narrative: 1.Const: Well-nourished, Well-developed, appearing stated age 2.Eyes: PERRL, no conjunctival injection, and symmetrical lids. 3.ENT: Atraumatic external nose and ears. Moist MM. Neck: Symmetric, trachea midline, No thyromegaly. 4.CVS: +S1/S2, No murmurs or gallops. Peripheral pulses 2+ and equal in all extremities. Brisk capillary refill in all extremities. 5.RESP: Unlabored respiratory effort. Clear to auscultation bilaterally. No wheezes rales or rhonchi 6.GI: Soft, Nontender/Nondistended, No hepatosplenomegaly. No guarding or rebound. 7.MSK: Normocephalic/Atraumatic, Extremities w/o deformity or ttp No cyanosis or clubbing, Normal movement of all extremities 8.Skin: Warm, Dry. No rashes or lesions. 9.Neuro: unit assistant II-XII grossly intact. Sensation grossly intact, no focal neurologic deficits. 10.Psych: (AAO) x3. Appropriate mood and affect Course Vital Signs Vital signs: Vital Signs Temperature 36.3 C L 09/10/22 00:44 Pulse 83 09/10/22 00:44 Respiratory Rate 19 09/10/22 00:44 Blood Pressure 158/98 H 09/10/22 00:44 Pulse Oximetry 99 09/10/22 00:44 Temperature 36.3 C L 09/10/22 00:44 Temperature Source Temporal Artery Scan 09/10/22 00:44 Pulse 83 09/10/22 00:44 Respiratory Rate 19 09/10/22 00:44 Respiratory Effort 09/10/22 00:53 Respiratory Depth Normal 09/10/22 00:53 Respiratory Pattern Normal 09/10/22 00:53 Blood Pressure 158/98 H 09/10/22 00:44 Blood Pressure Position Supine 09/10/22 00:44 Pulse Oximetry 99 09/10/22 00:44 Oxygen Delivery Method Room Air 09/10/22 00:44 Oxygen Flow Rate 0 09/10/22 00:44 Pain Level 0 09/10/22 00:44 Lab/Test Results Lab/Test Results: Laboratory Tests Range/Units 09/10/22 01:00 WBC (4.4-10.8) 10^3/uL 7.33 RBC (3.93-5.22) 10^6/uL 4.29 Hgb (11.2-15.7) g/dL 13.1 Hct (36.0-46.0) % 39.3 MCV (80-95) fL 92 MCH (27.0-33.0) pg 30.5 MCHC (32.0-36.0) % 33.3 RDW (11.7-14.6) % 12.6 Plt Count (130-400) 10^3/uL 177 MPV (8.0-11.0) fL 9.7 Immature Gran % 0.3 Neutrophils % 48.5 Lymphocytes % 39.4 Monocytes % 7.8 Eosinophils % 3.5 Basophils % 0.5 Nucleated RBC % (0.0-0.3) % 0.0 Absolute Neutrophils (1.2-6.7) 10^3/uL 3.55 Absolute Lymphocytes (1.2-3.4) 10^3/uL 2.89 Absolute Monocytes (0.1-0.8) 10^3/uL 0.57 Absolute Eosinophils (0.0-0.7) 10^3/uL 0.26 Absolute Basophils (0.0-0.2) 10^3/uL 0.04 POCUS Exam (ED) Limited Cardiac Exam DATE OF EXAM: 09/10/22 TIME OF EXAM: 01:29 PROVIDER THAT PERFORMED THE STUDY: James Mayes IS THIS A REPEAT EXAM DURING THIS ENCOUNTER: no REASON FOR EXAM: Other (elevated heart rate) indication: palpitations VISUALIZED STRUCTURES: Left atrium, Left ventricle and Interventricular septum VIEW OBTAINED: Parasternal long-axis PERTINENT FINDINGS/IMPRESSION: Pericardial effusion DIFFERENTIAL DIAGNOSES: palpitations INCIDENTAL FINDINGS: Patient demonstrates a slight pericardial effusion. No evidence of tamponade. Ejection fraction appears to be around 55 to 60%. Visualization of the cardiac structures was slightly difficult and exam seem to be technically difficult in spite of repositioning. Exam complete
[2022-09-10 01:28] LABS: ALT 29 U/L (14-59); AST 29 U/L (15-37); Albumin 3.7 g/dL (3.4-5.0); Alkaline Phosphatase 90 U/L (46-116); Anion Gap 7.6 mmol/L (3-11); BUN 19 mg/dL (7-18); Bilirubin, Total 0.2 mg/dL (0.2-1.0); CO2 30.4 mmol/L (21.0-32.0); Chloride 103 mmol/L (98-107); Estimated GFR 62.13 (mL/min/1.73m2); Glucose 117 mg/dL (74-106); NT-proBNP 377 pg/mL (<300); Potassium 3.9 mmol/L (3.5-5.1); Sodium 141 mmol/L (136-145); TSH (W/Ref FT4) 2.66 uIU/mL (0.36-3.74); Total Protein 7.2 g/dL (6.4-8.2); Troponin I < 50 ng/L (<or=60)
--- NOTE | 2022-09-10 01:57 | DI.VRAD_ITS ---
PROCEDURE INFORMATION: Exam: XR Chest Exam date and time: 09/10/2022 1:23 AM Age: 67 years old Clinical indication: Patient HX: Cough. R/O pneumonia TECHNIQUE: Imaging protocol: Radiologic exam of the chest. Views: 1 view. COMPARISON: CR XR PORTABLE CHEST AP 06/11/2022 7:45 AM FINDINGS: Tubes, catheters and devices: Monitoring wires noted. Lungs: Unremarkable. No consolidation. Pulmonary vessels are not congested. Pleural spaces: Unremarkable. No pleural effusion. No pneumothorax. Heart/Mediastinum: Unremarkable. No cardiomegaly. Bones/joints: Unremarkable. IMPRESSION: No acute cardiopulmonary abnormality. Dictated and Authenticated by: Ajay Tran MD. Ordering:MARI Ramirez MD
[2022-09-10] MEDS: Levalbuterol HFA 15 GM INH 2 PUFF IH (02:34)
--- NOTE | 2022-09-10 03:02 | NUR.NOTE ---
Report received from prior staff. pt resting, remains in NSR at present time, pt to have a trop drawn at 0358 Nursing Note:
[2022-09-10 03:45] LABS: Troponin I < 50 ng/L (<or=60)
== END 2022-09-10 03:43 | disposition home or self-care (01) ==
PROVIDERS: Emergency Provider Student in an Organized Health Care Education/Training Program; PCP Family Medicine
DX: R00.2 Palpitations (principal); R07.89 Other chest pain; I25.10 Atherosclerotic heart disease of native coronary artery without angina pectoris; J45.909 Unspecified asthma, uncomplicated; R79.89 Other specified abnormal findings of blood chemistry; E86.0 Dehydration; I25.2 Old myocardial infarction
CPT/HCPCS: 80053; 93005; 93308; 94640; 96360; 99284; 71045; 83880; 84443; 84484; 85025; 85610; 85730; 93010; 99285

== ENCOUNTER 2022-09-25 08:56 | Outpatient (RCR) | payer OTHER, SELFPAY ==
--- NOTE | 2022-09-25 09:00 | HOLTER_ITS ---
APPROVED REPORT Conclusion This is a 48-hour Holter monitor, ordered for palpitations Rhythm throughout was sinus with an average heart rate of 67. Minimum was 54, maximum 92 There were very rare isolated atrial and ventricular ectopic beats A total of 2 brief self-limited atrial runs occurred. The longest of these was 9 beats in duration a nd occurred during sleep There was no atrial fibrillation, no high-grade AV block, no pauses greater than 3 seconds No patient symptoms were reported
== END 2022-10-04 23:59 | disposition home or self-care (01) ==
LOC: CARDOPNVT 08:56
PROVIDERS: PCP Family Medicine; Visit Provider Internal Medicine Cardiovascular Disease
DX: R00.2 Palpitations (principal); I49.1 Atrial premature depolarization
CPT/HCPCS: 93225; 93226

== ENCOUNTER 2023-02-11 12:09 | Outpatient (REF) | payer OTHER, MEDICARE, SELFPAY ==
--- NOTE | 2023-02-11 10:55 | PAPFT_PTH ---
PATIENT: Francine Borges LOC: [facility] U#:[id number] AGE/SX: 67/F ROOM: RE02/11/[address]: Kalpana Roy NP : 1955 BED: DIS: 02/11/2023 SPEC #: [id number] RECD: 02/11/23 12:50 STATUS: MASON REQ #: [id number] DEDRICK: 02/11/23 10:[address]: Kalpana Roy NP DEPT: [facility] Cytology RECD BY: Molly Eckert ENTERED: 02/11/23 12:50 SP TYPE: PAPFT OTHR DR: Cheri Montelongo Tissues: 1 - CX/ENDOCX FOR PAP SMEARS Procedures: PAP THIN PREP/UVM Screening HPV DNA PROBE Comments: [id number]
== END 2023-02-11 12:10 | disposition home or self-care (01) ==
LOC: LBN 12:09
PROVIDERS: PCP Family Medicine; Visit Provider Nurse Practitioner Women's Health
DX: Z12.4 Encounter for screening for malignant neoplasm of cervix (principal); Z11.51 Encounter for screening for human papillomavirus (HPV)
CPT/HCPCS: 88142; 87624

== ENCOUNTER 2023-03-06 13:14 | Outpatient (REF) | payer OTHER, SELFPAY ==
--- NOTE | 2023-03-06 08:45 | SKI_PTH ---
PATIENT: Francine Borges LOC: [facility] U#:[id number] AGE/SX: 68/F ROOM: RE03/06/[address]: DOMINGO Mason : 1955 BED: DIS: 03/06/2023 SPEC #: [id number] RECD: 03/06/23 13:16 STATUS: MASON REQ #: [id number] DEDRICK: 03/06/23 08:[address]: Rai Grande DEPT: Surgical Specimen RECD BY: Molly Eckert ENTERED: 03/06/23 13:17 SP TYPE: SKI OTHR DR: Cheri Montelongo Tissues: 1 - SKIN BIOPSY(SHAVE/PUNCH) Procedures: SKIN LEVEL 4 Comments: [id number]
== END 2023-03-06 13:15 | disposition home or self-care (01) ==
LOC: LBN 13:14
PROVIDERS: PCP Family Medicine; Visit Provider Physician Assistant
DX: C44.319 Basal cell carcinoma of skin of other parts of face (principal)
CPT/HCPCS: 88305

== ENCOUNTER 2023-09-04 11:23 | Emergency (ER) | payer OTHER, SELFPAY ==
[2023-09-04] VITALS (42 sets, daily range): BP systolic 123–155; BP diastolic 64–82; PULSE 63–85; RESP 12–27; TEMP 36.5; O2SAT 92–99
--- NOTE | 2023-09-04 11:15 | RT.EKG_ITS ---
APPROVED REPORT Exam: Resting ECG Reason for Exam: chest pain Patient Location: E HR:76 bpm ECG Measurements Heart Rate 76 AXIS AL 132 P 73 QRSd 83 QRS 69 QT 373 T 56 QTc 419 Conclusion Sinus rhythm. normal axis no acute ST change
[2023-09-04 11:54] LABS: Abs Immature Grans 0.05 10^3/uL (0.0-0.06); Absolute Basophil Count 0.06 10^3/uL (0.0-0.2); Absolute Eosinophil Count 0.15 10^3/uL (0.0-0.7); Absolute Lymphocyte Count 3.14 10^3/uL (1.2-3.4); Absolute Neutrophil Count 6.86 10^3/uL (1.2-6.7); Basophils % 0.5; Eosinophils % 1.4; HGB 14.1 g/dL (11.2-15.7); Immature Grans % 0.5; Lymphocytes % 28.4; MCH 29.3 pg (27.0-33.0); MCHC 32.8 % (32.0-36.0); MCV 89 fL (80-95); MPV 9.6 fL (8.0-11.0); Monocytes % 7.2; Platelet Count 215 10^3/uL (130-400); RBC 4.82 10^6/uL (3.93-5.22); RDW 13.6 % (11.7-14.6); RDW-SD 44.9 fL; WBC 11.06 10^3/uL (4.4-10.8)
--- NOTE | 2023-09-04 12:15 | DI.US_ITS ---
APPROVED REPORT EXAM: Comprehensive 2D, Doppler, and color-flow Echocardiogram Patient Location: ER Room/Bed: 4 Urogynaecologist: Dev Cota RDCS (AE) Indications: chest pain Other Information Study Quality: Good Conclusion Normal left ventricular wall thickness and chamber size. Ejection fraction is 60%. Diastolic functi on is normal for age. There are no segmental wall motion abnormalities Normal right ventricular size and systolic function Both atria are normal in size There is no structural or hemodynamically significant valvular disease Estimated right ventricular systolic pressure is 22 mmHg Wall motion Left Ventricle The left ventricle is normal size. The left ventricular systolic function is normal. The left ventric ular ejection fraction is within the normal range. There is normal left ventricular wall thickness. T here is normal LV segmental wall motion. Left ventricular filling pattern is normal for age. There is no ventricular septal defect visualized. LVEF is 60%. Right Ventricle The right ventricle is normal size. The right ventricular systolic function is normal. The RVSP is 22 .8 mmHg. Atria The left atrium size is normal. The right atrium size is normal. The interatrial septum is intact wit h no evidence for an atrial septal defect. Aortic Valve The aortic valve is normal in structure. Aortic valve is trileaflet. There is no aortic valvular sten osis. No aortic regurgitation is present. Mitral Valve The mitral valve is normal in structure. No evidence of mitral valve stenosis. Mild mitral regurgitat ion. Tricuspid Valve The tricuspid valve is normal in structure. There is no tricuspid valve stenosis. Mild tricuspid regu rgitation. Pulmonic Valve The pulmonary valve is normal in structure. There is no pulmonic valvular stenosis. There is no pulmo melvin valvular regurgitation. Great Vessels The aortic root is normal in size. The ascending aorta is mildly dilated. Aortic arch is normal in ca liber. IVC is normal in size and collapses >50% with inspiration. 2D Dimensions IVSD d PLAX 0.94 cm F: 0.6-1.0 Ao Root d 3.06 cm F: 2.7 - 3.3 LVPW d PLAX 0.86 cm F: 0.6 - 1.0 Ao Asc Diam d 3.43 cm F: 2.3 - 3.1 LVID d PLAX 4.26 cm F: 3.8 - 5.2 LVDs 2.95 cm F: 2.2 - 3.5 LV EF Teichholz 58.7 % FS 30.77 % LV EDV (Teich) 81.3 mL LV ESV (Teich) 33.6 mL Stroke Vol Index (Teich) 24.46 M-Mode TAPSE 2.66 cm (M/F) >1.7 Auto EF LV EDV A4C 78.5 mL LV EDV A2C 80.1 mL LV EDV BP 80.7 mL LV ESV A4C 35.2 mL LV ESV A2C 31.9 mL LV ESV BP 33.6 mL LVEF(%) A4C 55.2 % LVEF(%) A2C 60.2 % LVEF(%) BP 58.3 % LV SV A4C 43.4 ml LV SV A2C 48.2 ml LV SV BP 47.1 ml LV CO A4C 2.9 L/min LV CO A2C 3.1 L/min LV CO BP 3.0 L/min HR A4C 66.06 BPM HR A2C 64.04 BPM LV EDV Index (BP) LA Volume LA Length A4C 5.7 cm LA Length A2C LA Area A4C s 17.61 cm2 LA Area A2C s LA Vol A4C A-L 45.86 mL LA Vol A2C A-L LA Vol Biplane A-L LA Vol A4C MOD 42.6 mL LA Vol A2C MOD LA Vol BP MOD RA Volume RA Area A4C 10.1 cm2 RA ESV A4C (A-L) 21.0mL RA Vol/BSA A4C A-L RA Length A4C 4.1 cm RA ESV A4C (MOD) 20.4mL LV Diastology MV E' medial 0.082 (>0.07 m/s) MV E Vmax 0.72 (0.4-1.3 m/s) MV E/E' MED 8.76 (<14) MV A Vmax 0.90 (0.4-1.3 m/s) MV E' lateral 0.101 (>0.1 m/s) E/A Ratio 0.8 MV E/E' LAT 7.10 (<14) MV E' Average 0.092 m/s MV E/E'(average) 7.84 Aortic Valve AoV Vmax 1.54 m/s LVOT Vmax 1.25 m/s AoV Peak Grad 9.5 mmHg LVOT Peak Grad 6.2 mmHg AoV Area (Vmax) 2.15 cm2 LVOT VTI 0.262 m AoV VTI 0.339 m LVOT Mean Grad 3.4 mmHg AoV Mean Dajuan. 1.02 m/s LVOT SV 69.53 mL AoV Mean Grad 4.9 mmHg LVOT Diam s 1.80 cm AoV Area (VTI) 2.05 cm2 Velocity Ratio 0.81 Mitral Valve MV DT 185 (160-240 msec) Pulmonary Valve PV Vmax 0.94 (0.5-1.5 m/s) RVOT Vmax 0.82 m/s PV Peak Grad 3.5 mmHg RVOT Peak Gr. 2.7 mmHg PV Mean Dajuan 0.74 m/s RVOT VTI 0.175 m PV Mean Grad 2.4 mmHg RVOT Mean Gr. 1.5 mmHg Tricuspid Valve RA Pressure 3.00 mmHg TR Vmax 2.22 m/s TR Peak Grad 19.7 mmHg RVSP (TR) 22.8 mmHg
[2023-09-04 12:16] LABS: ALT 35 U/L (14-59); AST 16 U/L (15-37); Albumin 3.5 g/dL (3.4-5.0); Alkaline Phosphatase 67 U/L (46-116); Anion Gap 7.6 mmol/L (3-11); BUN 14 mg/dL (7-18); Bilirubin, Total 0.4 mg/dL (0.2-1.0); CO2 29.4 mmol/L (21.0-32.0); CREATININE 0.9 mg/dL (0.55-1.02); Chloride 102 mmol/L (98-107); Estimated GFR 70.07 (mL/min/1.73m2); Glucose 124 mg/dL (74-106); Magnesium 2.2 mg/dL (1.8-2.4); NT-proBNP 159 pg/mL (<300); Potassium 3.8 mmol/L (3.5-5.1); Sodium 139 mmol/L (136-145); Total Protein 7.1 g/dL (6.4-8.2); Troponin I < 50 ng/L (<or=60)
--- NOTE | 2023-09-04 13:50 | ED.GENADUL_ITS ---
Discharge Plan Disposition Patient Disposition: Home Discharge Details Clinical Impression: Atypical chest pain Primary Care Provider: Cheri Montelongo ED Provider: Simone Briscoe Home Meds and New Rx's Prescriptions: New lorazepam [Ativan] 0.5 mg tablet 0.5 mg PO TID PRN (Reason: anxiety) Qty: 10 0RF No Action cholecalciferol (vitamin D3) 25 mcg (1,000 unit) capsule 25 mcg PO DAILY temazepam 7.5 mg capsule 7.5 mg PO QHS PRN (Reason: sleep) zaleplon 5 mg capsule 5 mg PO QHS PRN Rx Instructions: must avoid high-fat meal/food immediately before taking dose Asmanex HFA 100 mcg/actuation HFA aerosol inhaler 2 puff inhalation BID Womens multivitamin 1 tab PO DAILY vitamin B complex 1 EACH capsule 1 ea PO DAILY nitroglycerin 0.4 mg tablet, sublingual 0.4 mg SL Q5-15M PRN (Reason: chest pain) Qty: 9 12RF Rx Instructions: until response; do not exceed 3 doses per episode calcium carbonate 600 mg calcium (1,500 mg) tablet 600 mg PO BID sertraline 25 mg tablet 25 mg PO DAILY albuterol sulfate 8.5 GM HFA aerosol inhaler 1 puff .Route PRN PRN omeprazole 20 mg capsule,delayed release(DR/EC) 20 mg PO .QOD amlodipine 5 mg tablet 5 mg PO DAILY metoprolol succinate [Toprol XL] 25 mg tablet extended release 24 hr 25 mg PO DAILY acetaminophen 500 mg tablet 1,000 mg PO Q8H PRN (Reason: pain) Qty: 90 3RF aspirin [Aspir-81] 81 mg tablet,delayed release (DR/EC) 81 mg PO DAILY gabapentin 100 mg capsule 1 cap PO DAILY Discharge Instructions Additional Instructions: restart your isosorbide dinitrate 10mg twice daily take Ativan as needed for anxiety they will contact you to schedue stress test if your symptoms persistent, please return for re-evaluation Medical Decision Making Emergent evaluation of chest pain. Patient has a significant cardiac history. At this time she is chest pain-free. She has taken nitroglycerin and aspirin today. Her EKG does not demonstrate a STEMI at this time. Will closely monitor and plan for serial troponins. 1230: Lab work reviewed, no leukocytosis or anemia on CBC. Her CMP is unremarkable. Her initial cardiac biomarkers are negative. Plan for serial troponin. I will attempt to get an echocardiogram today to facilitate her outpatient workup with her respiratory support technician 1520: Patient workup negative, did receive an echocardiogram in the ED which has not been read. I discussed with the patient's respiratory support technician, Dr. Parish, at [facility]. He is familiar with the patient. He states that if her third troponin is negative, she could get a stress test and if her third troponin trends up, she would need a cath. He is suggesting transfer for this as we would not be able to do a cath in case she needs 1. The patient is having a very significant difficulty family issue with her daughter's illness and being transferred at this time is causing her some significant distress. After long discussion and shared decision making, we will get the third troponin here. If it is negative, we will arrange for a stress test outpatient next week 1700: patient feels better after ativan. patient without additional chest pain. awaiting final trop, signed out to oncoming provider Medical Records Medical records reviewed: Yes I reviewed the patient's medical records. Lab Data Lab results reviewed: Yes I reviewed the patient's lab results. ECG Data Attestation: I personally reviewed and interpreted this ECG (s) as follows: Prior ECG tracings: available for review Interpretation: EKG sinus 76, normal axis, no acute ischemic change HPI General Date/Time Provider Initiated Documentation: 09/04/23 11:29 . Limitations to Documentation: no limitations . Information obtained by: patient . HPI Narrative: 68-year-old female with past medical history including DCIS, CAD, spontaneous coronary artery dissection, [place] presents for evaluation of chest pain. She reports that over the last 48 hours she has had 3 episodes of chest pain. She reports discomfort in the epigastric area and right side which has been typical of her previous MIs. Today she reports more exertional pain. Her last episode of pain was at 11 AM, she took 1 dose of nitroglycerin which improved her pain. At this time she does not have any pain. She follows closely with her respiratory support technician at [facility]. She does not smoke. And has been compliant with her medications. Related Data Home Medications Medication Instructions Recorded Confirmed Womens Multivitamin 1 tab PO DAILY 03/07/13 09/04/23 albuterol sulfate 90 mcg/actuation 1 puff .Route PRN PRN 08/09/14 09/04/23 aerosol inhaler vitamin B complex 1 ea PO DAILY 03/04/17 09/04/23 acetaminophen 500 mg tablet 1,000 mg (2 x 500 mg) PO Q8H PRN 02/18/19 09/04/23 pain #90 tabs aspirin 81 mg tablet,delayed 81 mg PO DAILY 11/10/19 09/04/23 release (Aspir-) nitroglycerin 0.4 mg sublingual 0.4 mg sublingual Q5-15M PRN chest 04/23/20 09/04/23 tablet pain #9 tabs calcium carbonate 600 mg calcium 600 mg PO BID 01/03/21 09/04/23 (1,500 mg) tablet cholecalciferol (vitamin D3) 25 25 mcg PO DAILY 01/03/21 09/04/23 mcg (1,000 unit) capsule omeprazole 20 mg capsule,delayed 20 mg PO .QOD 01/03/21 09/04/23 release temazepam 7.5 mg capsule 7.5 mg PO QHS PRN sleep 01/03/21 09/04/23 zaleplon 5 mg capsule 5 mg PO QHS PRN 01/03/21 09/04/23 gabapentin 100 mg capsule 1 cap PO DAILY 06/11/22 09/04/23 sertraline 25 mg tablet 25 mg PO DAILY 01/14/23 09/04/23 mometasone 100 mcg/actuation HFA 2 puff inhalation BID 07/30/23 09/04/23 aerosol inhaler (Asmanex HFA) amlodipine 5 mg tablet 5 mg PO DAILY 09/04/23 09/04/23 lorazepam 0.5 mg tablet (Ativan) 0.5 mg PO TID PRN anxiety #10 tabs 09/04/23 metoprolol succinate 25 mg 25 mg PO DAILY 09/04/23 09/04/23 tablet,extended release 24 hr (Toprol XL) Previous Rx's Medication Instructions Recorded acetaminophen 500 mg tablet 1,000 mg (2 x 500 mg) PO Q8H PRN 02/18/19 pain #90 tabs nitroglycerin 0.4 mg sublingual 0.4 mg sublingual Q5-15M PRN chest 04/23/20 tablet pain #9 tabs lorazepam 0.5 mg tablet (Ativan) 0.5 mg PO TID PRN anxiety #10 tabs 09/04/23 Allergies Allergy/AdvReac Type Severity Reaction Status Date / Time amoxicillin Allergy Intermediate HIVES Unverified 09/04/23 11:30 Penicillins Allergy Intermediate HIVES Unverified 09/04/23 11:30 cephalexin monohydrate Allergy Skin Rash Unverified 09/04/23 11:30 [From Keflex] codeine [Codeine] AdvReac Mild ABDOMINAL Unverified 09/04/23 11:30 PAIN General Stated Complaint: Chest Pain LAKHWINDER: 3 PFSH All Active Problems (Updated 09/04/23 @ 17:07 by Simone Briscoe MD) Colon cancer screening (Acute) Spontaneous dissection of coronary artery (Acute) Basal cell carcinoma, face (Acute) Facial skin lesion (Acute) Strain of hip adductor muscle (Acute) Status post total replacement of right hip (Chronic ~02/17/19) Anxiety (Acute 03/07/13) 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) Atypical chest pain (Acute) CAD (coronary artery disease) (Chronic) Medical History Vitamin D deficiency GOPI (stress urinary incontinence, female) Insomnia History of postoperative nausea and vomiting GERD (gastroesophageal reflux disease) Breast CA Anxiety disorder prescribed citalopram after her NSTEMI Osteoarthritis of hips, bilateral Infiltrating ductal carcinoma of breast, stage 1 Bilateral - 1999, 2000 Asthma CAD (coronary artery disease) [place] 11/2014, 10/2017 Surgical History History of colonoscopy History of bilateral mastectomy (03/26/17) Cervical Procedure HSIL 2001 [[facility] [place] ? LEEP Breast, Mastectomy Bilateral Bilateral DCIS with reconstructions Family History Other Diabetes Heart disease Personal history of malignant neoplasm Social History Smoking/Tobacco Use Status: Former Tobacco Use Quit Date: 10/05/79 Smoking risk assessment performed?: Yes Alcohol Intake: former Year quit: 2017 Details: formerly drank 1 glass of wine w/ dinner 3 to 5 night/wk, abstinent 07/2018 Drug use: Never Substance use type: does not use Current gender identity: female What is your relationship status?: Panel score (0-1 are the most socially isolated patients): 1 What type of physical activity do you participate in: walking and additional Details: stretching Duration: 30-45 minutes/day Frequency: daily Do you feel safe at home: Yes Do you feel safe in your relationship?: Yes Female Reproductive History Menstrual Menopause type: natural History History 4 Para 2 Hx # Term Pregnancies 2 Multiple births Hx # Pregnancies Ectopic pregnancies 2 AB induced Hx Number of Living Children AB spontaneous 2 Exam Narrative Exam Narrative: Review of Systems: All systems reviewed & are unremarkable except as noted in HPI and below: CONSTITUTIONAL: Alert and oriented Well-developed, no acute distress HEENT: NCAT EYES: PERRL, no conjunctival injection CVS: RRR, No murmurs or gallops. Peripheral pulses 2+ and equal in all extremities Brisk capillary refill in all extremities. No peripheral edema RESP: Unlabored respiratory effort, Clear to auscultation bilaterally No wheezes rales or rhonchi GI: Soft, Nontender, Nondistended, No organomegaly MSK: Extremities with full range of motion, no deformity or TTP SKIN: Warm, Dry. No rashes or lesions. NEURO: No focal neurologic deficits. dosier operator II-XII grossly intact Course Vital Signs Vital signs: Vital Signs Temperature 36.5 C 09/04/23 11:27 Pulse 82 09/04/23 11:27 Blood Pressure 155/64 H 09/04/23 11:27 Pulse Oximetry 99 09/04/23 11:27 Temperature 36.5 C 09/04/23 11:27 Temperature Source Oral 09/04/23 11:27 Pulse 63 09/04/23 13:01 Pulse 69 09/04/23 13:41 Respiratory Rate 15 09/04/23 13:41 Respiratory Effort Normal 09/04/23 12:24 Respiratory Depth Normal 09/04/23 12:24 Respiratory Pattern Normal 09/04/23 12:24 Blood Pressure 130/71 09/04/23 13:01 Blood Pressure Mean 91 09/04/23 13:01 Blood Pressure Position Sitting 09/04/23 11:27 Pulse Oximetry 93 09/04/23 13:41 Oxygen Delivery Method Room Air 09/04/23 11:27 Oxygen Flow Rate 0 09/04/23 11:27 Lab/Test Results Lab/Test Results: Laboratory Tests Range/Units 09/04/23 11:48 WBC (4.4-10.8) 10^3/uL 11.06 H RBC (3.93-5.22) 10^6/uL 4.82 Hgb (11.2-15.7) g/dL 14.1 Hct (36.0-46.0) % 43.0 MCV (80-95) fL 89 MCH (27.0-33.0) pg 29.3 MCHC (32.0-36.0) % 32.8 RDW (11.7-14.6) % 13.6 Plt Count (130-400) 10^3/uL 215 MPV (8.0-11.0) fL 9.6 Immature Gran % 0.5 Neutrophils % 62.0 Lymphocytes % 28.4 Monocytes % 7.2 Eosinophils % 1.4 Basophils % 0.5 Nucleated RBC % (0.0-0.3) % 0.0 Absolute Neutrophils (1.2-6.7) 10^3/uL 6.86 H Absolute Lymphocytes (1.2-3.4) 10^3/uL 3.14 Absolute Monocytes (0.1-0.8) 10^3/uL 0.80 Absolute Eosinophils (0.0-0.7) 10^3/uL 0.15 Absolute Basophils (0.0-0.2) 10^3/uL 0.06 Sodium (136-145) mmol/L 139 Potassium (3.5-5.1) mmol/L 3.8 Chloride (98-107) mmol/L 102 Carbon Dioxide (21.0-32.0) mmol/L 29.4 Anion Gap (3-11) mmol/L 7.6 BUN (7-18) mg/dL 14 Creatinine (0.55-1.02) mg/dL 0.9 Est GFR (CKD-EPI 2020) (mL/min/1.73m2) 70.07 Glucose (74-106) mg/dL 124 H Calcium (8.5-10.1) mg/dL 9.0 Magnesium (1.8-2.4) mg/dL 2.2 Total Bilirubin (0.2-1.0) mg/dL 0.4 AST (15-37) U/L 16 ALT (14-59) U/L 35 Alkaline Phosphatase (46-116) U/L 67 Troponin I (<or=60) ng/L < 50 NT-Pro-B Natriuret Pep (<300) pg/mL 159 Total Protein (6.4-8.2) g/dL 7.1 Albumin (3.4-5.0) g/dL 3.5 Sign Out Sign Out Data: Sign Out Comment: 68-year-old patient with history of CAD presenting with intermittent chest pain. Troponin x 2 negative. Plan for third troponin. If third troponin is negative will go home and get outpatient stress test which has been ordered for Thursday or Thursday. If third troponin is positive she will need to be transferred for cath. 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 Everyone is in agreement with this plan. Last updated by Simone Briscoe MD at 09/04/23 17:01 PAWSS Have you Been Recently Intoxicated or Drunk Within the Last 30 days?: No Have you Ever Experienced Previous Episodes of Alcohol Withdrawal?: No Have you ever Experienced Withdrawal Seizures?: No Have you ever Experienced Delirium Tremens(DT)s?: No Have you ever undergone Alcohol Rehabilitation Treatment (i.e, inpt ot outpatient treatment programs)?: No Have you ever Experienced Blackouts?: No Have you ever Combined Alcohol with other Downers within the last 90 days?: No Have you ever Combined Alcohol with any other Substance of Abuse during the last 90 days?: No Positive Blood Alcohol level on Presentation? [PCS.BAL]: No Evidence of Increased Autonomic Activity (i.e. HR>120, tremor, sweating, agitation, nausea)?: No Result: 0
--- NOTE | 2023-09-04 14:45 | RT.EKG_ITS ---
APPROVED REPORT Exam: Resting ECG Reason for Exam: chest pain Patient Location: E HR:67 bpm ECG Measurements Heart Rate 67 AXIS PA 136 P 59 QRSd 82 QRS 34 QT 404 T 33 QTc 428 Conclusion Sinus rhythm...normal P axis,
[2023-09-04 14:54] LABS: Troponin I < 50 ng/L (<or=60)
[2023-09-04] MEDS: LORazepam 0.5 MG TAB PO ×2 (16:03→18:21)
[2023-09-04 17:58] LABS: Troponin I < 50 ng/L (<or=60)
== END 2023-09-04 18:23 | disposition home or self-care (01) ==
PROVIDERS: Emergency Provider Emergency Medicine; PCP Family Medicine
DX: R10.13 Epigastric pain (principal); R07.89 Other chest pain; I25.10 Atherosclerotic heart disease of native coronary artery without angina pectoris; I25.2 Old myocardial infarction; Z85.3 Personal history of malignant neoplasm of breast; Z90.13 Acquired absence of bilateral breasts and nipples; Z87.891 Personal history of nicotine dependence
CPT/HCPCS: 36415; 80053; 93005; 99284; 83735; 83880; 84484; 85025; 93010; 93306

== ENCOUNTER → 2023-09-10 00:59 | Outpatient (CLI) | payer OTHER, SELFPAY ==
--- NOTE | 2023-09-10 | ETT_ITS ---
APPROVED REPORT Exam: Exercise Treadmill Patient Location: Out-Patient Room/Bed: Stress Nurse: Kellen Amos RN Ordering Provider:RALPH MONTOYA, Contact Number: [phone] BMI: 28.65 Baseline Rhythm: Sinus Rhythm Indications: Chest pain, Medical History Medical History: Spontaneous dissection of coronary artery, basal cell carcinoma, ductal carcinoma of breast, atypical chest pain, CAD Cardiac Medications: Albuterol, aspirin, nitro SL, calcium carbonate, vitamin B, vitamin D, omeprazol e, temazepam, zaleplon, gabapentin, sertraline, mometasone, amlodipine, metoprolol succinate, lorazep am Allergies: Amoxicillin, pencillin, cephalexin, codeine Cardiac Risk Factors: Family hx, HTN, HLD, CVD, former smoker, asthma Previous Cardiac Procedures: cardiac cath x3 Pretest Chest Pain Characteristics: None Exercise History: Indeterminate Physical Disabilities: None Lung Sounds: Clear to auscultation Heart Sounds: Regular Stress Test Details Test: Exercise stress testing was performed using a Vinicio protocol. Rest Stress HR Resting HR Supine: 79 bpm Max Heart Rate (APMHR): 153 bpm Resting HR Standin bpm Target HR (85% APMHR): 130 bpm Max HR Achieved: 132 bpm % of APMHR: 86 Recovery HR: 78 bpm HR response to stress: Normal HR response to stress BP Resting BP Supine: 134/78 mmHg Resting BP Standin/80 mmHg Max BP: 180/80 mmHg Recovery BP: 142/68 mmHg BP response to stress: Normal blood pressure response to stress. ECG Resting ECG: Sinus Rhythm Ectopy: None Stress ECG: Sinus Tachycardia ST Change: No significant ST segment changes noted Arrhythmia: None Recovery ECG: Sinus Rhythm Recovery Arrhythmia: Occasional PVC Clinical Reason for Termination: Dyspnea Stress Symptoms: Dyspnea Exercise duration: 04 min26 sec Highest Stage Reached: Stage 2: 2.5 mph at 12% grade. Exercise capacity: 6.37 METs Angina Score: None Hernandez Treadmill Score: 3.0 Rate Pressure Product: 32413 Stress ECG Conclusion 1. Resting electrocardiogram was within normal limits 2. Patient exercised on the Vinicio protocol and completed a workload of 6.37 METS 3. Normal heart rate and blood pressure response to exercise. Patient achieved 86% of predicted hear t rate for age 4. There was no electrocardiographic evidence of myocardial ischemia 5. There were no significant dysrhythmias Hernandez Treadmill Score is 3.0 which is Moderate risk. Stress Test Summary STAGE Time (mins) Speed (mph) Grade (%) HR BP SpO2 SYMPTOMS METS Supine 79 134/78 95 Standing 94 126/80 1 3 1.7 10 120 142/82 4.5 1 min recovery 117 180/80 3 min recovery 88 162/70 6 min recovery 78 142/68
== END ==
PROVIDERS: PCP Family Medicine; Visit Provider Emergency Medicine
DX: R07.89 Other chest pain (principal)
CPT/HCPCS: 93016; 93018; 93017

== ENCOUNTER 2023-10-07 18:58 | Outpatient (CLI) | payer OTHER, SELFPAY ==
[2023-10-07 08:58] LABS: Calculated LDL 97 mg/dL (<100); Cholesterol 202 mg/dL (<200); HDL Cholesterol 92 mg/dL (40-60); Triglyceride 67 mg/dL (<150)
== END 2023-10-07 18:59 | disposition home or self-care (01) ==
LOC: LBO 18:58
PROVIDERS: PCP Family Medicine; Visit Provider Nurse Practitioner Family
DX: I25.10 Atherosclerotic heart disease of native coronary artery without angina pectoris (principal)
CPT/HCPCS: 36415; 80061

== ENCOUNTER 2023-12-05 11:13 | Emergency (ER) | payer OTHER, SELFPAY ==
--- NOTE | 2023-12-05 11:15 | RT.EKG_ITS ---
APPROVED REPORT Exam: Resting ECG Reason for Exam: dizzy Patient Location: E HR:69 bpm ECG Measurements Heart Rate 69 AXIS ND 153 P 62 QRSd 91 QRS 41 QT 398 T 36 QTc 426 Conclusion Sinus rhythm...normal P axis, V-rate 60- 99 Abnrm R prog, consider ASMI or lead placement...Q >30mS, diminished R, V1-V2 sinus rhtyhm, normal axis, normal intervals
--- NOTE | 2023-12-05 11:15 | DI.CT_ITS ---
Exam(s) CT BRAIN NECK CTA EXAM: CT BRAIN NECK CTA CLINICAL HISTORY: dizziness, ataxia for 1 week, double vision. TECHNIQUE: Imaging Protocol: Axial CT angiography was performed with multi-slice acquisition and mu lti-planar and MIP reconstructions. CONTRAST MATERIAL: Intravenous: Omnipaque 350 Contrast volume:100 ml COMPARISON: CT CT FACIAL WO from 06/10/2022 FINDINGS: CT Head W/O and W contrast: Ventricles and Extra axial spaces: Normal in size and morphology for the patient's age. Hemorrhage: None. Cerebral parenchyma: No evidence of acute infarct or mass. Midline shift: None. Brainstem/Cerebellum: No acute findings.. Calvarium: Normal. Visualized Paranasal sinuses/Mastoids: Clear. Soft Tissues: Unremarkable. Enhancement: Normal. CTA Brain W: Internal Carotid Arteries: Petrous: Normal. Cavernous: Normal. Cerebral: Normal. Middle Cerebral Arteries: Right: Mild irregularity of the M1 segment with mild stenosis. No aneurysm.. Left: No aneurysm. Mild irregularity of the M1 segment with mild stenosis. Anterior Cerebral Arteries: Right: No aneurysm, occlusion or significant stenosis. Left: No aneurysm, occlusion or significant stenosis. Posterior cerebral Arteries: Right: No aneurysm, occlusion or significant stenosis. Left: No aneurysm, occlusion or significant stenosis. Vertebral Arteries: Right: No aneurysm, occlusion or significant stenosis. Left: No aneurysm, occlusion or significant stenosis. Basilar Artery: No aneurysm, occlusion or significant stenosis. CTA Neck W: Common Carotid: Right: No dissection, occlusion or significant stenosis. Left: No dissection, occlusion or significant stenosis. External Carotid: Right: Calcified plaque proximally. No dissection, occlusion or significant stenosis. Left: No dissection, occlusion or significant stenosis. Internal Carotid: Right: No dissection, occlusion or significant stenosis. Left: Mild calcified plaque proximally. No dissection, occlusion or significant stenosis. Vertebral Artery: Right: No dissection, occlusion or significant stenosis. Left: No dissection, occlusion or significant stenosis. Lung Apices: Normal. Bones: No acute abnormality. Mild degenerative changes of the cervical spine. Soft Tissues: Normal. IMPRESSION: 1. CTA brain: Mild irregularity of the M1 segments bilaterally without significant stenosis. No evid ence of aneurysm or dissection. 2. Head CT: Unremarkable CT Head. 3. CTA neck: Mild calcific plaque at the proximal right external carotid artery without evidence of s ignificant stenosis. Mild calcific plaque at the origin of the left internal carotid artery. No sig nificant stenosis. No evidence of dissection. RADIATION DOSE DELIVERED: Total DLP DATA REPOSITORY: All CT scans at this facility are submitted to the National Radiology Data Registry (NRDR) Dose Index Registry (DIR) with the [employer] (A[employer]). RADIATION OPTIMIZATION: All CT scans at this facility use at least one of these dose optimization te chniques: automated exposure control; mA and/or kV adjustment per patient size (includes targeted exa ms where dose is matched to clinical indication); or iterative reconstruction.
[2023-12-05 11:18] VITALS: BP 171/111; PULSE 76; RESP 20; O2SAT 98; O2SAT 99
[2023-12-05 11:19] VITALS: BP 171/111; PULSE 79; O2SAT 99
[2023-12-05 11:20] VITALS: O2SAT 99
--- NOTE | 2023-12-05 11:30 | ED.GENADUL_ITS ---
Discharge Plan Disposition Patient Disposition: Home Condition: Improving Discharge Details Chief Complaint: EyeProblem Clinical Impression: Dizziness Primary Care Provider: Cheri Montelongo ED Provider: Nate Panchal Home Meds and New Rx's Prescriptions: No Action cholecalciferol (vitamin D3) 25 mcg (1,000 unit) capsule 25 mcg PO DAILY temazepam 7.5 mg capsule 7.5 mg PO QHS PRN (Reason: sleep) zaleplon 5 mg capsule 5 mg PO QHS PRN Rx Instructions: must avoid high-fat meal/food immediately before taking dose Asmanex HFA 100 mcg/actuation HFA aerosol inhaler 2 puff inhalation BID PRN Womens multivitamin 1 tab PO DAILY vitamin B complex 1 EACH capsule 1 ea PO DAILY nitroglycerin 0.4 mg tablet, sublingual 0.4 mg SL Q5-15M PRN (Reason: chest pain) Qty: 9 12RF Rx Instructions: until response; do not exceed 3 doses per episode calcium carbonate 600 mg calcium (1,500 mg) tablet 600 mg PO BID sertraline 25 mg tablet 25 mg PO DAILY albuterol sulfate 8.5 GM HFA aerosol inhaler 1 puff .Route PRN PRN omeprazole 20 mg capsule,delayed release(DR/EC) 20 mg PO .QOD amlodipine 5 mg tablet 5 mg PO DAILY metoprolol succinate [Toprol XL] 25 mg tablet extended release 24 hr 25 mg PO DAILY lorazepam [Ativan] 0.5 mg tablet 0.5 mg PO TID PRN (Reason: anxiety) Qty: 10 0RF isosorbide dinitrate 10 mg tablet 10 mg PO QHS Rx Instructions: allow nitrate-free interval of 12-14 hrs per 24-hr period acetaminophen 500 mg tablet 1,000 mg PO Q8H PRN (Reason: pain) Qty: 90 3RF aspirin [Aspir-81] 81 mg tablet,delayed release (DR/EC) 81 mg PO DAILY gabapentin 100 mg capsule 1 cap PO DAILY Discharge Instructions Instructions: Vertigo (ED), Dizziness (ED) Additional Instructions: Please follow-up closely with neurology as well as primary care. Please return to the emergency department for any worsening symptoms. HPI General Date/Time Provider Initiated Documentation: 12/05/23 11:15 . HPI Narrative: 68-year-old female history of coronary disease, history of breast CA, presents with vertiginous symptoms over the last week began as severe room spinning dizziness associate with nausea and vomiting last Thursday, patient did have recent URI, slight improvement of nausea no active vomiting but persistent sensation of ataxia with intermittent double vision over the last 24 to 48 hours. No chest pain or shortness of breath Related Data Home Medications Medication Instructions Recorded Confirmed Womens Multivitamin 1 tab PO DAILY 03/07/13 12/05/23 albuterol sulfate 90 mcg/actuation 1 puff .Route PRN PRN 08/09/14 12/05/23 aerosol inhaler vitamin B complex 1 ea PO DAILY 03/04/17 12/05/23 acetaminophen 500 mg tablet 1,000 mg (2 x 500 mg) PO Q8H PRN 02/18/19 12/05/23 pain #90 tabs aspirin 81 mg tablet,delayed 81 mg PO DAILY 11/10/19 12/05/23 release (Aspir-) nitroglycerin 0.4 mg sublingual 0.4 mg sublingual Q5-15M PRN chest 04/23/20 12/05/23 tablet pain #9 tabs calcium carbonate 600 mg calcium 600 mg PO BID 01/03/21 12/05/23 (1,500 mg) tablet cholecalciferol (vitamin D3) 25 25 mcg PO DAILY 01/03/21 12/05/23 mcg (1,000 unit) capsule omeprazole 20 mg capsule,delayed 20 mg PO .QOD 01/03/21 12/05/23 release temazepam 7.5 mg capsule 7.5 mg PO QHS PRN sleep 01/03/21 12/05/23 zaleplon 5 mg capsule 5 mg PO QHS PRN 01/03/21 12/05/23 gabapentin 100 mg capsule 1 cap PO DAILY 06/11/22 12/05/23 sertraline 25 mg tablet 25 mg PO DAILY 01/14/23 12/05/23 mometasone 100 mcg/actuation HFA 2 puff inhalation BID PRN 07/30/23 12/05/23 aerosol inhaler (Asmanex HFA) amlodipine 5 mg tablet 5 mg PO DAILY 09/04/23 12/05/23 lorazepam 0.5 mg tablet (Ativan) 0.5 mg PO TID PRN anxiety #10 tabs 09/04/23 12/05/23 metoprolol succinate 25 mg 25 mg PO DAILY 09/04/23 12/05/23 tablet,extended release 24 hr (Toprol XL) isosorbide dinitrate 10 mg tablet 10 mg PO QHS 12/05/23 12/05/23 Previous Rx's Medication Instructions Recorded acetaminophen 500 mg tablet 1,000 mg (2 x 500 mg) PO Q8H PRN 02/18/19 pain #90 tabs nitroglycerin 0.4 mg sublingual 0.4 mg sublingual Q5-15M PRN chest 04/23/20 tablet pain #9 tabs lorazepam 0.5 mg tablet (Ativan) 0.5 mg PO TID PRN anxiety #10 tabs 09/04/23 Allergies Allergy/AdvReac Type Severity Reaction Status Date / Time amoxicillin Allergy Intermediate HIVES Unverified 12/05/23 11:24 Penicillins Allergy Intermediate HIVES Unverified 12/05/23 11:24 cephalexin monohydrate Allergy Skin Rash Unverified 12/05/23 11:24 [From Keflex] codeine [Codeine] AdvReac Mild ABDOMINAL Unverified 12/05/23 11:24 PAIN General Stated Complaint: EyeProblem LAKHWINDER: 3 Review of Systems Narrative: Review of Systems Constitutional: negative Eyes: negative ENT: negative Cardiovascular: negative Respiratory: negative Gastrointestinal: negative : negative Musculoskeletal: negative Skin: negative Neurologic: Dizziness Psych: negative Exam Narrative Exam Narrative: Physical Examination General: alert, awake, cooperative, appears uncomfortable HEENT: normocephalic, atraumatic; PERRL, EOM intact, conjunctiva normal; no nasal discharge; moist mucous membranes, oral and pharyngeal mucosa normal, tolerating secretions; TMs clear bilaterally Neck: supple, trachea midline; full ROM Chest: normal to inspection Respiratory: normal respiratory effort, speaking in full sentences, clear to auscultation, no wheezing, rales or rhonchi Cardiac: regular rate, regular rhythm, S1S2 intact, no murmurs rubs or gallops GI: abdomen soft, non-tender, non-distended; no palpable mass or hepatosplenomegaly Skin: no lesions, rashes or trauma appreciated Neuro: AAOx3, normal speech, cranial nerves II through XII intact, 5-5 strength upper and lower extremities bilaterally, mild ataxia with ambulatory drift Extremities: Moving all extremities no trauma Psych: Appropriate mood and affect Course Vital Signs Vital signs: Vital Signs Pulse 76 12/05/23 11:18 Respiratory Rate 20 12/05/23 11:18 Blood Pressure 171/111 H 12/05/23 11:18 Pulse Oximetry 99 12/05/23 11:18 Pulse 76 12/05/23 11:18 Respiratory Rate 20 12/05/23 11:18 Respiratory Effort Normal, Non-Labored 12/05/23 11:22 Blood Pressure 171/111 H 12/05/23 11:18 Blood Pressure Position Sitting 12/05/23 11:18 Pulse Oximetry 99 12/05/23 11:18 Oxygen Delivery Method Room Air 12/05/23 11:18 Oxygen Flow Rate 0 12/05/23 11:18 Medical Decision Making 68-year-old female history of coronary disease, breast cancer, presents with vertiginous symptoms over the last week, improving nausea and vomiting however persistent dizziness mild ataxia and with intermittent double vision over the last 24 to 48 hours. Patient noted be hypertensive on arrival. Nontoxic nonmeningeal however does appear uncomfortable and anxious. Nonfocal examination but does have slight ambulatory drift. Consider peripheral vertigo versus central process such as vertebrobasilar occlusion versus dissection low suspicion for ACS PE or aortic pathology low suspicion for encephalitis low suspicion for optic neuritis no evidence of trauma or epileptic events. Will obtain basic labs EKG CTA head and neck trial of meclizine Ativan dexamethasone fluids rest close reassessment. 13: 23 patient resting comfortably no acute distress. Feeling better after me dication. CT CTA unremarkable for acute CVA occlusion or dissection. High clinical suspicion for peripheral vertigo. Discussed with patient and family the relative sensitivities of CT scan and MRI for posterior fossa pathology, patient would prefer to follow-up with neurology and discuss outpatient MRI options. Given home care instructions return precautions. 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) Atypical chest pain (Acute) CAD (coronary artery disease) (Chronic) Medical History Vitamin D deficiency GOPI (stress urinary incontinence, female) Insomnia History of postoperative nausea and vomiting GERD (gastroesophageal reflux disease) Breast CA Anxiety disorder prescribed citalopram after her NSTEMI Osteoarthritis of hips, bilateral Infiltrating ductal carcinoma of breast, stage 1 Bilateral - 1999, 2000 Asthma CAD (coronary artery disease) NM 11/2014, 10/2017 Surgical History History of colonoscopy History of bilateral mastectomy (03/26/17) Cervical Procedure HSIL 2001 [[facility] [place]] ? LEEP Breast, Mastectomy Bilateral Bilateral DCIS with reconstructions Family History Other Diabetes Heart disease Personal history of malignant neoplasm Social History Smoking/Tobacco Use Status: Former Tobacco Use Quit Date: 10/05/79 Smoking risk assessment performed?: Yes Alcohol Intake: former Year quit: 2017 Details: formerly drank 1 glass of wine w/ dinner 3 to 5 night/wk, abstinent 07/2018 Drug use: Never Substance use type: does not use Current gender identity: female What is your relationship status?: Panel score (0-1 are the most socially isolated patients): 1 What type of physical activity do you participate in: walking and additional Details: stretching Duration: 30-45 minutes/day Frequency: daily Do you feel safe at home: Yes Do you feel safe in your relationship?: Yes Female Reproductive History Menstrual Menopause type: natural History History 4 Para 2 Hx # Term Pregnancies 2 Multiple births Hx # Pregnancies Ectopic pregnancies 2 AB induced Hx Number of Living Children AB spontaneous 2
[2023-12-05 11:37] VITALS: BP 150/78; PULSE 69; O2SAT 99
[2023-12-05] MEDS: Meclizine 25 MG TAB PO (11:38)
[2023-12-05] MEDS: Dexamethasone 10 MG/ML VIAL IVP (11:50)
[2023-12-05] MEDS: LORazepam 2 MG/ML VIAL 0.5 MG IVP (11:51)
[2023-12-05 12:02] LABS: Abs Immature Grans 0.01 10^3/uL (0.0-0.06); Absolute Basophil Count 0.04 10^3/uL (0.0-0.2); Absolute Eosinophil Count 0.16 10^3/uL (0.0-0.7); Absolute Monocyte Count 0.41 10^3/uL (0.1-0.8); Absolute Neutrophil Count 3.42 10^3/uL (1.2-6.7); Basophils % 0.7; Eosinophils % 2.7; HGB 13.2 g/dL (11.2-15.7); Immature Grans % 0.2; MCH 29.1 pg (27.0-33.0); MCHC 33.8 % (32.0-36.0); MCV 86 fL (80-95); MPV 9.9 fL (8.0-11.0); Monocytes % 6.9; Neutrophils % 57.5; Platelet Count 185 10^3/uL (130-400); RBC 4.53 10^6/uL (3.93-5.22); RDW 13.1 % (11.7-14.6); WBC 5.94 10^3/uL (4.4-10.8)
[2023-12-05] MEDS: Normal Saline 1,000 ML 1000 ML IV (12:04)
[2023-12-05] MEDS: Omnipaque 350 MG/ML 100 ML BTL IJ (12:15)
[2023-12-05] MEDS: Normal Saline - Diluent 50 ML VIAL IJ (12:15)
[2023-12-05 12:17] LABS: PTT Activated 26.9 sec (23.6-32.8); Prothrombin Time 10.5 sec (9.1-11.1)
[2023-12-05 12:29] LABS: ALT 17 U/L (14-59); AST 14 U/L (15-37); Albumin 3.6 g/dL (3.4-5.0); Alkaline Phosphatase 70 U/L (46-116); BUN 11 mg/dL (7-18); Bilirubin, Total 0.4 mg/dL (0.2-1.0); CREATININE 0.9 mg/dL (0.55-1.02); Calcium 8.8 mg/dL (8.5-10.1); Chloride 103 mmol/L (98-107); Estimated GFR 70.07 (mL/min/1.73m2); Glucose 104 mg/dL (74-106); Magnesium 2.1 mg/dL (1.8-2.4); Potassium 3.8 mmol/L (3.5-5.1); Sodium 139 mmol/L (136-145); TSH (W/Ref FT4) 1.55 uIU/mL (0.36-3.74); Troponin I < 50 ng/L (< or =60)
--- NOTE | 2023-12-05 12:56 | DI.VRAD_ITS ---
PROCEDURE INFORMATION: Exam: CTA Head With Contrast, Arteriography Exam date and time: 12/05/2023 12:10 PM Age: 68 years old Clinical indication: Other: Dizziness, ataxia for 1 week, double vision TECHNIQUE: Imaging protocol: Computed tomographic angiography of the head with contrast. Exam focused on the arteries. 3D rendering (Not supervised by radiologist): MIP and/or 3D reconstructed images were created by the technologist. Contrast material: OMNIPAQUE 350; Contrast volume: 85 ml; Contrast route: INTRAVENOUS (IV); COMPARISON: CT FACIAL WO 06/10/2022 3:03 PM FINDINGS: ANTERIOR CIRCULATION: Right internal carotid artery: Intracranial segment is patent with no significant stenosis. No aneurysm. Right middle cerebral artery: Irregularities of the M1 segment of the right MCA with mild stenosis. Right anterior cerebral artery: No occlusion or significant stenosis. No aneurysm. Left internal carotid artery: Intracranial segment is patent with no significant stenosis. No aneurysm. Left middle cerebral artery: There are irregularities of the M1 segment of the left MCA with mild stenosis. Left anterior cerebral artery: No occlusion or significant stenosis. No aneurysm. POSTERIOR CIRCULATION: Right vertebral artery: No occlusion or significant stenosis. No aneurysm. Left vertebral artery: No occlusion or significant stenosis. No aneurysm. Basilar artery: No occlusion or significant stenosis. No aneurysm. Right posterior cerebral artery: No occlusion or significant stenosis. No aneurysm. Left posterior cerebral artery: No occlusion or significant stenosis. No aneurysm. Brain: No definite mass, mass effect, or midline shift. Cerebral ventricles: No ventriculomegaly. Bones/joints: Unremarkable. No acute fracture. Soft tissues: Unremarkable. IMPRESSION: 1. No large vessel occlusion. 2. Mild stenosis of bilateral MCAs involving M1 segments. PROCEDURE INFORMATION: Exam: CTA Neck With Contrast Exam date and time: 12/05/2023 12:10 PM Age: 68 years old Clinical indication: Other: Dizziness, ataxia for 1 week, double vision TECHNIQUE: Imaging protocol: Computed tomographic angiography of the neck with contrast. Exam focused on the cervical segments of the vasculature. 3D rendering (Not supervised by radiologist): MIP and/or 3D reconstructed images were created by the technologist. Contrast material: OMNIPAQUE 350; Contrast volume: 85 ml; Contrast route: INTRAVENOUS (IV); COMPARISON: CT CHEST PE CTA 04/16/2019 4:55 PM FINDINGS: Right common carotid artery: No stenosis. No dissection or occlusion. Right internal carotid artery: No stenosis of the extracranial segment. No dissection or occlusion. Right external carotid artery: Calcified atheroma of the proximal right external carotid artery no significant stenosis. Left common carotid artery: No stenosis. No dissection or occlusion. Left internal carotid artery: Calcified atheroma of the proximal left internal carotid artery but no significant stenosis. Left external carotid artery: No occlusion or stenosis of the origin. Right vertebral artery: No stenosis. No dissection or occlusion. Left vertebral artery: No stenosis. No dissection or occlusion. Soft tissues: Normal. No significant soft tissue swelling. Bones/joints: Mild multilevel degenerative disease of the cervical spine with anterior and posterior osteophytes bilateral facet joint arthropathy. IMPRESSION: No significant stenosis, occlusion or aneurysm. REFERENCES: NASCET CRITERIA. The degree of stenosis in the cervical segment of the internal carotid artery is based on NASCET criteria. Normal is no stenosis. Mild is less than 50% stenosis. Moderate is 50-69% stenosis. Severe is 70% to 99% stenosis. Total occlusion is no detectable patent lumen. Dictated and Authenticated by: Riccardo Isidro MD. Ordering:EVER Sullivan MD
--- NOTE | 2023-12-05 13:32 | NUR.NOTE ---
Referral faxed to [facility] for dizziness; this next week. Nursing Note:
[2023-12-05 13:37] VITALS: PULSE 64; O2SAT 96
[2023-12-05 13:40] VITALS: BP 150/79; PULSE 68; RESP 18; O2SAT 96
== END 2023-12-05 13:40 | disposition home or self-care (01) ==
PROVIDERS: Emergency Provider Emergency Medicine; PCP Family Medicine
DX: R42 Dizziness and giddiness (principal); H53.2 Diplopia; I25.10 Atherosclerotic heart disease of native coronary artery without angina pectoris; Z79.82 Long term (current) use of aspirin; Z87.891 Personal history of nicotine dependence
CPT/HCPCS: 70496; 70498; 80053; 93005; 96361; 96374; 96375; 99285; 83735; 84443; 84484; 85025; 85610; 85730; 93010; 99284; J1100; J2060; J3490

== ENCOUNTER 2024-07-27 11:17 | Observation (INO) | payer OTHER, SELFPAY ==
[2024-07-27] VITALS (82 sets, daily range): BP systolic 127–182; BP diastolic 64–107; PULSE 77–127; RESP 12–40; TEMP 36.5–37; O2SAT 93–99
--- NOTE | 2024-07-27 11:15 | RT.EKG_ITS ---
APPROVED REPORT Exam: Resting ECG Reason for Exam: AMS/stroke r/o Patient Location: E HR:88 bpm ECG Measurements Heart Rate 88 AXIS PA 147 P 54 QRSd 90 QRS 23 QT 364 T 12 QTc 440 Conclusion Sinus rhythm...normal P axis, V-rate 60- 99 Probable left atrial enlargement...P >50mS, <-0.10mV V1
--- NOTE | 2024-07-27 11:30 | DI.CT_ITS ---
Exam(s) CT HEAD - STROKE PROTOCOL EXAM: CT HEAD - STROKE PROTOCOL CLINICAL HISTORY: confusion onset sudden 1030, confusion. TECHNIQUE: Imaging Protocol: Axial computed tomography images with coronal and sagittal reformatted images were created and reviewed COMPARISON: CT CT BRAIN NECK CTA from 12/05/2023 FINDINGS: There are no skull fractures. There is no fluid in the visualized paranasal sinuses. There is no evidence of intracranial hemorrhage, mass effect, or shift of midline structures. There are no extra-axial fluid collections. The ventricles are not enlarged or shifted and there is no blo od within the ventricular system nor within the basal cisterns. IMPRESSION: No acute intracranial findings on this noninfused CT scan of the brain. RADIATION DOSE DELIVERED: 840.91mGy.cm Total DLP DATA REPOSITORY: All CT scans at this facility are submitted to the National Radiology Data Registry (NRDR) Dose Index Registry (DIR) with the [employer] ([employer]). RADIATION OPTIMIZATION: All CT scans at this facility use at least one of these dose optimization te chniques: automated exposure control; mA and/or kV adjustment per patient size (includes targeted exa ms where dose is matched to clinical indication); or iterative reconstruction.
[2024-07-27 11:46] LABS: Abs Immature Grans 0.01 10^3/uL (0.0-0.06); Absolute Basophil Count 0.04 10^3/uL (0.0-0.2); Absolute Eosinophil Count 0.13 10^3/uL (0.0-0.7); Absolute Lymphocyte Count 2.27 10^3/uL (1.2-3.4); Absolute Monocyte Count 0.42 10^3/uL (0.1-0.8); Absolute Neutrophil Count 3.22 10^3/uL (1.2-6.7); Basophils % 0.7 %; Eosinophils % 2.1 %; HCT 43.1 % (36.0-46.0); HGB 14.5 g/dL (11.2-15.7); Immature Grans % 0.2 %; Lymphocytes % 37.3 %; MCH 30.3 pg (27.0-33.0); MCHC 33.6 % (32.0-36.0); MCV 90 fL (80-95); MPV 9.8 fL (8.0-11.0); Monocytes % 6.9 %; Neutrophils % 52.8 %; Platelet Count 186 10^3/uL (130-400); RBC 4.78 10^6/uL (3.93-5.22); RDW 13.1 % (11.7-14.6); RDW-SD 43.4 fL; WBC 6.09 10^3/uL (4.4-10.8)
[2024-07-27 12:05] LABS: ALT 24 U/L (14-59); AST 20 U/L (15-37); Albumin 3.6 g/dL (3.4-5.0); Alkaline Phosphatase 76 U/L (46-116); Anion Gap 9.3 mmol/L (3-11); BUN 15 mg/dL (7-18); Bilirubin, Total 0.51 mg/dL (0.2-1.0); CO2 27.7 mmol/L (21.0-32.0); CREATININE 0.9 mg/dL (0.55-1.02); Calcium 9.3 mg/dL (8.5-10.1); Chloride 105 mmol/L (98-107); Estimated GFR 69.64 (mL/min/1.73m2); Glucose 102 mg/dL (74-106); Magnesium 1.9 mg/dL (1.8-2.4); Potassium 3.7 mmol/L (3.5-5.1); Sodium 142 mmol/L (136-145); Total Protein 7.5 g/dL (6.4-8.2); Troponin I 6 ng/L (<or=51)
--- NOTE | 2024-07-27 12:30 | DI.CT_ITS ---
Exam(s) CT BRAIN NECK CTA EXAM: CT BRAIN NECK CTA CLINICAL HISTORY: confusion. TECHNIQUE: Imaging Protocol: Axial CT angiography was performed with multi-slice acquisition and mu lti-planar and/or 3D reconstructions. CONTRAST MATERIAL: Intravenous: Omnipaque 350 Contrast volume:85cc COMPARISON: CT CT HEAD - STROKE PROTOCOL from 07/27/2024 FINDINGS: CTA Neck W: Aortic arch anatomy: The aortic arch anatomy is conventional and there is no significant stenosis at the origin of the great vessels off of the aortic arch. No intimal flap evident. Anterior circulation: Both common carotid arteries ascend with normal luminal diameters. At the level the carotid bulbs and proximal internal carotid arteries there is minimal plaque without hemodynamically significant stenosis evident. The internal carotid arteries in the upper neck are somewhat tortuous but without significant stenosi s. Posterior circulation: Both vertebral arteries originate in conventional fashion off of the subclavian arteries and there is no obvious stenosis at the origin of the vertebral arteries. Both vertebral arteries exhibit normal luminal diameters within the foramen transversarium. No evidence of intraluminal thrombus nor dissection. Both vertebral arteries contribute to the formation of the basilar artery at the skull base. CTA Brain W: Anterior circulation: Both internal carotid arteries are patent in the skull base-carotid canals as well as within the cave rnous sinuses. The supraclinoid aspects of the ICAs are patent. Both A1 segments are patent as are the anterior cer ebral arteries and there is no evidence of aneurysm at the level of the anterior communicating artery . Both middle cerebral arteries are patent with no evidence of significant stenosis nor intraluminal th rombus. There also no aneurysms of these vessels. Posterior circulation: Basilar artery ascends with no significant stenosis. Distally gives off patent bilateral superior ce rebellar arteries. Above this level the basilar artery terminates as patent bilateral posterior cerebral arteries. There is no evidence of aneurysm at the tip of the basilar artery nor elsewhere in the [id number] is. CT BRAIN: There is no evidence of intracranial hemorrhage, mass effect, or shift of midline structures. There are no extra-axial fluid collections. Ventricles are not enlarged or shifted. There are no ring enh ancing lesions in the brain and no abnormal meningeal enhancement. IMPRESSION: 1. Patent carotid arteries in the neck. Minimal plaque. No hemodynamically significant stenosis. 2. Patent vertebral arteries. 3. Patent intracranial arteries. 4. No acute intracranial findings. Clinically indicated follow-up MRI can be performed. Called by myself to ER physician 07/27/2024 at 1:46 p.m. RADIATION DOSE DELIVERED: 2,192.35mGy.cm Total DLP DATA REPOSITORY: All CT scans at this facility are submitted to the National Radiology Data Registry (NRDR) Dose Index Registry (DIR) with the [employer] (ACR). RADIATION OPTIMIZATION: All CT scans at this facility use at least one of these dose optimization te chniques: automated exposure control; mA and/or kV adjustment per patient size (includes targeted exa ms where dose is matched to clinical indication); or iterative reconstruction.
[2024-07-27 13:07] LABS: Troponin I 7 ng/L (<or=51)
[2024-07-27] MEDS: Omnipaque 350 MG/ML 500 ML BTL-Imaging package IJ (13:07)
[2024-07-27] MEDS: Normal Saline - Diluent 50 ML VIAL IJ (13:09)
--- NOTE | 2024-07-27 13:45 | W.ED.GENAD ---
Discharge Plan Disposition Patient Disposition: Admit to [facility] Condition: Serious Discharge Details Clinical Impression: Amnesia, Hypertension Primary Care Provider: Cheri Montelongo ED Provider: Laci Huff Home Meds and New Rx's Prescriptions: No Action cholecalciferol (vitamin D3) 25 mcg (1,000 unit) capsule 25 mcg PO DAILY temazepam 7.5 mg capsule 7.5 mg PO QHS PRN (Reason: sleep) Womens multivitamin 1 tab PO DAILY vitamin B complex 1 EACH capsule 1 ea PO DAILY nitroglycerin 0.4 mg tablet, sublingual 0.4 mg SL Q5-15M PRN (Reason: chest pain) Qty: 9 12RF Rx Instructions: until response; do not exceed 3 doses per episode albuterol sulfate 8.5 GM HFA aerosol inhaler 1 puff .Route PRN PRN omeprazole 20 mg capsule,delayed release(DR/EC) 20 mg PO .q3week Patient Comments: Pt takes 3x per week metoprolol succinate [Toprol XL] 25 mg tablet extended release 24 hr 25 mg PO DAILY isosorbide dinitrate 10 mg tablet 10 mg PO QHS Rx Instructions: allow nitrate-free interval of 12-14 hrs per 24-hr period aspirin [Aspir-81] 81 mg tablet,delayed release (DR/EC) 81 mg PO DAILY HPI General Mode of arrival: ambulatory. Date/Time Provider Initiated Documentation: 07/27/24 11:29. Limitations to Documentation: altered mental status. Information obtained by: patient and family. HPI Narrative: 69-year-old female with history of coronary artery disease, spontaneous dissection of coronary artery, here with sudden onset confusion started around 1030 this morning. History limited as patient amnestic to events today. Patient's is a physician unable to provide history noting concern for global amnesia sudden onset at 1030 this morning. No weakness or numbness. No visual changes. No speech changes. She denies pain. Related Data Home Medications ?Medication ?Instructions ?Recorded ?Confirmed Womens Multivitamin 1 tab PO DAILY 03/07/13 07/27/24 albuterol sulfate 90 mcg/actuation 1 puff .Route PRN PRN 08/09/14 07/27/24 aerosol inhaler vitamin B complex 1 ea PO DAILY 03/04/17 07/27/24 aspirin 81 mg tablet,delayed 81 mg PO DAILY 11/10/19 07/27/24 release (Aspir-) nitroglycerin 0.4 mg sublingual 0.4 mg sublingual Q5-15M PRN chest 04/23/20 07/27/24 tablet pain #9 tabs cholecalciferol (vitamin D3) 25 25 mcg PO DAILY 01/03/21 07/27/24 mcg (1,000 unit) capsule omeprazole 20 mg capsule,delayed 20 mg PO .q3week 01/03/21 07/27/24 release temazepam 7.5 mg capsule 7.5 mg PO QHS PRN sleep 01/03/21 07/27/24 metoprolol succinate 25 mg 25 mg PO DAILY 09/04/23 07/27/24 tablet,extended release 24 hr (Toprol XL) isosorbide dinitrate 10 mg tablet 10 mg PO QHS 12/05/23 07/27/24 Previous Rx's ?Medication ?Instructions ?Recorded nitroglycerin 0.4 mg sublingual 0.4 mg sublingual Q5-15M PRN chest 04/23/20 tablet pain #9 tabs Allergies Allergy/AdvReac Type Severity Reaction Status Date / Time amoxicillin Allergy Intermediate HIVES Unverified 07/27/24 12:11 Penicillins Allergy Intermediate HIVES Unverified 07/27/24 12:11 cephalexin monohydrate (From Allergy Skin Rash Unverified 07/27/24 12:11 Keflex) codeine (Codeine) AdvReac Mild ABDOMINAL Unverified 07/27/24 12:11 PAIN General Stated Complaint: CVA/TIA LAKHWINDER: 2 Review of Systems All systems reviewed & are unremarkable except as noted in HPI and below Constitutional Constitutional: Denies body ache(s) and Denies fever(s) Cardiovascular Cardiovascular: Denies chest pain Exam Const General: cooperative and no acute distress HENMT Mouth: moist mucous membranes Eyes Conjunctivae: normal conjunctivae Sclera: normal sclerae EOM: EOM intact bilaterally Neck Neck: trachea midline and supple Resp Auscultation: clear to auscultation bilaterally, no rales, no rhonchi and no wheezes Cardio Rate: regular rate and not tachycardic Rhythm: regular rhythm GI Palpation: soft, not firm, no guarding, no masses, not rigid and nontender Skin General skin exam: no rashes or lesions noted Neuro General: patient alert, patient awake, oriented Patient Orientation: Person, Place and Confused and tone normal Extrem General: no edema Psych Appearance: grossly normal Mental Status: mental status grossly normal Speech and Movement: speech and movement normal Course Vital Signs Vital signs: Vital Signs Pulse Oximetry 99 07/27/24 11:29 Pulse 87 07/27/24 12:04 Pulse 83 07/27/24 12:10 Respiratory Rate 18 07/27/24 12:10 Respiratory Effort Normal, Non-Labored 07/27/24 12:09 Respiratory Depth Normal 07/27/24 12:09 Respiratory Pattern Normal 07/27/24 12:09 Blood Pressure 182/91 H 07/27/24 12:04 Blood Pressure Mean 120 07/27/24 12:04 Blood Pressure Position Sitting 07/27/24 11:32 Pulse Oximetry 97 07/27/24 12:10 Oxygen Delivery Method Room Air 07/27/24 11:32 Oxygen Flow Rate 0 07/27/24 11:32 Lab/Test Results Lab/Test Results: Laboratory Tests Range/Units 07/27/24 07/27/24 11:30 12:30 WBC (4.4-10.8) 10^3/uL 6.09 RBC (3.93-5.22) 10^6/uL 4.78 Hgb (11.2-15.7) g/dL 14.5 Hct (36.0-46.0) % 43.1 MCV (80-95) fL 90 MCH (27.0-33.0) pg 30.3 MCHC (32.0-36.0) % 33.6 RDW (11.7-14.6) % 13.1 Plt Count (130-400) 10^3/uL 186 MPV (8.0-11.0) fL 9.8 Immature Gran % % 0.2 Neutrophils % % 52.8 Lymphocytes % % 37.3 Monocytes % % 6.9 Eosinophils % % 2.1 Basophils % % 0.7 Nucleated RBC % (0.0-0.3) % 0.0 Absolute Neutrophils (1.2-6.7) 10^3/uL 3.22 Absolute Lymphocytes (1.2-3.4) 10^3/uL 2.27 Absolute Monocytes (0.1-0.8) 10^3/uL 0.42 Absolute Eosinophils (0.0-0.7) 10^3/uL 0.13 Absolute Basophils (0.0-0.2) 10^3/uL 0.04 Sodium (136-145) mmol/L 142 Potassium (3.5-5.1) mmol/L 3.7 Chloride (98-107) mmol/L 105 Carbon Dioxide (21.0-32.0) mmol/L 27.7 Anion Gap (3-11) mmol/L 9.3 BUN (7-18) mg/dL 15 Creatinine (0.55-1.02) mg/dL 0.9 Est GFR (CKD-EPI 2020) (mL/min/1.73m2) 69.64 Glucose (74-106) mg/dL 102 Calcium (8.5-10.1) mg/dL 9.3 Magnesium (1.8-2.4) mg/dL 1.9 Total Bilirubin (0.2-1.0) mg/dL 0.51 AST (15-37) U/L 20 ALT (14-59) U/L 24 Alkaline Phosphatase (46-116) U/L 76 Troponin I (<or=51) ng/L 6 7 Total Protein (6.4-8.2) g/dL 7.5 Albumin (3.4-5.0) g/dL 3.6 Medical Decision Making 1350??69-year-old female with history of coronary artery disease and coronary artery dissection, seen shortly after arrival here today with concern for global amnesia send sudden onset at 1030 this morning. Patient has no focal neurologic deficits on examination. She has no headache or visual changes. Patient is saturating well in no respiratory distress. She is quite hypertensive with systolic blood pressure around 180. She is usually well-controlled with systolic around 120. Concern for acute CVA versus hypertensive emergency versus other. CT of the head was interpreted by radiology: Negative. CTA of the brain and neck interpreted by radiology: Less than 10% plaque in the necks, no other significant acute findings. I will consult teleneurology. Plan to initiate antihypertensive treatment with nicardipine infusion. --CTA was interpreted by radiology: 1. Patent carotid arteries in the neck. Minimal plaque. No hemodynamically significant stenosis. 2. Patent vertebral arteries. 3. Patent intracranial arteries. 4. No acute intracranial findings. Clinically indicated follow-up MRI can be performed. -- I spoke with the teleneurologist - he recommends not administrering TNK. He recommends MRI. Suspects transient topographical amnesia. He recommends continued observation. He does not feel strongly that antihypertensive needed. Patient reassessed and blood pressure has improved. Plan to discontinue nicardipine while obtaining MRI and monitor vitals closely. I spoke with the hospitalist, Dr. Cortes, discussed ED presentation course, he will admit the patient post MRI. 1610 --Repeat blood pressure off nicardipine x1hr is 150/84. 1623 --MRI of the brain was interpreted by radiology: 1. No acute intracranial process. 2. Findings consistent with chronic microvascular ischemic disease. I spoke with Dr. Cortes, he will admit the patient. Lab Data Lab results reviewed: Yes I reviewed the patient's lab results. Labs: Laboratory Tests Range/Units 07/27/24 07/27/24 11:30 12:30 WBC (4.4-10.8) 10^3/uL 6.09 RBC (3.93-5.22) 10^6/uL 4.78 Hgb (11.2-15.7) g/dL 14.5 Hct (36.0-46.0) % 43.1 MCV (80-95) fL 90 MCH (27.0-33.0) pg 30.3 MCHC (32.0-36.0) % 33.6 RDW (11.7-14.6) % 13.1 Plt Count (130-400) 10^3/uL 186 MPV (8.0-11.0) fL 9.8 Immature Gran % % 0.2 Neutrophils % % 52.8 Lymphocytes % % 37.3 Monocytes % % 6.9 Eosinophils % % 2.1 Basophils % % 0.7 Nucleated RBC % (0.0-0.3) % 0.0 Absolute Neutrophils (1.2-6.7) 10^3/uL 3.22 Absolute Lymphocytes (1.2-3.4) 10^3/uL 2.27 Absolute Monocytes (0.1-0.8) 10^3/uL 0.42 Absolute Eosinophils (0.0-0.7) 10^3/uL 0.13 Absolute Basophils (0.0-0.2) 10^3/uL 0.04 Sodium (136-145) mmol/L 142 Potassium (3.5-5.1) mmol/L 3.7 Chloride (98-107) mmol/L 105 Carbon Dioxide (21.0-32.0) mmol/L 27.7 Anion Gap (3-11) mmol/L 9.3 BUN (7-18) mg/dL 15 Creatinine (0.55-1.02) mg/dL 0.9 Est GFR (CKD-EPI 2020) (mL/min/1.73m2) 69.64 Glucose (74-106) mg/dL 102 Calcium (8.5-10.1) mg/dL 9.3 Magnesium (1.8-2.4) mg/dL 1.9 Total Bilirubin (0.2-1.0) mg/dL 0.51 AST (15-37) U/L 20 ALT (14-59) U/L 24 Alkaline Phosphatase (46-116) U/L 76 Troponin I (<or=51) ng/L 6 7 Total Protein (6.4-8.2) g/dL 7.5 Albumin (3.4-5.0) g/dL 3.6 Quality:SDOH Health Related Social Needs: No Data to Display PFSH All Active Problems (Updated 07/27/24 @ 16:15 by Laci Huff MD) Hypertension (Chronic) Amnesia (Acute) Diplopia (Acute) Vertigo (Acute) Colon cancer screening (Acute) Spontaneous dissection of coronary artery (Acute) Basal cell carcinoma, face (Acute) Facial skin lesion (Acute) Strain of hip adductor muscle (Acute) Status post total replacement of right hip (Chronic ~02/17/19) Anxiety (Acute 03/07/13) 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) Atypical chest pain (Acute) CAD (coronary artery disease) (Chronic) Medical History Hypertension Vitamin D deficiency GOPI (stress urinary incontinence, female) Insomnia History of postoperative nausea and vomiting GERD (gastroesophageal reflux disease) Breast CA Anxiety disorder prescribed citalopram after her NSTEMI Osteoarthritis of hips, bilateral Infiltrating ductal carcinoma of breast, stage 1 Bilateral - 1999, 2000 Asthma CAD (coronary artery disease) [place] 11/2014, 10/2017 Surgical History Status post right hip replacement History of colonoscopy History of bilateral mastectomy (03/26/17) Cervical Procedure HSIL 2001 [[facility] [place] ? LEEP Breast, Mastectomy Bilateral Bilateral DCIS with reconstructions Family History Other Diabetes Heart disease Hyperlipidemia Hypertension Personal history of malignant neoplasm Social History Smoking/Tobacco Use Status: Former Tobacco Use Quit Date: 10/05/79 Smoking risk assessment performed?: Yes Alcohol Intake: former Year quit: 2017 Details: formerly drank 1 glass of wine w/ dinner 3 to 5 night/wk, abstinent 07/2018 Drug use: Never Substance use type: does not use Household members: spouse current occupation: Retired Current gender identity: female What is your relationship status?: Panel score (0-1 are the most socially isolated patients): 1 What type of physical activity do you participate in: walking and additional Details: stretching Duration: 30-45 minutes/day Frequency: daily Do you feel safe at home: Yes Do you feel safe in your relationship?: Yes Female Reproductive History Menstrual Menopause type: natural History History 4 Para 2 Hx # Term Pregnancies 2 Multiple births Hx # Pregnancies Ectopic pregnancies 2 AB induced Hx Number of Living Children AB spontaneous 2
--- NOTE | 2024-07-27 14:30 | DI.MRI_ITS ---
Exam(s) MR BRAIN WO EXAM: MR BRAIN WO CLINICAL HISTORY: amnesia TECHNIQUE: Multiplanar multisequence MRI of the brain was performed. COMPARISON: CT CT BRAIN NECK CTA from 07/27/2024 FINDINGS: VENTRICLES AND EXTRA AXIAL SPACES: Normal in size and morphology for the patient's age. MIDLINE SHIFT: None. CEREBRAL PARENCHYMA: No focus of restricted diffusion to suggest acute infarct. No space-occupying le christina identified. There are several areas of hyperintense signal seen in the white matter on the FLAIR and T2 weighted images most consistent with chronic microvascular ischemic disease. HEMORRHAGE: None. BRAINSTEM/CEREBELLUM: Normal. CALVARIUM: Normal. VISUALIZED PARANASAL SINUSES/MASTOIDS:Clear. [place]: Normal flow void. PITUITARY GLAND: Unremarkable. OTHER FINDINGS: None. IMPRESSION: 1. No acute intracranial process. 2. Findings consistent with chronic microvascular ischemic disease. DATA REPOSITORY:
--- NOTE | 2024-07-27 16:41 | HPE_ITS ---
Date of service: 07/27/24 Time of Service: 16:41 Assessment and Plan Assessment and plan (1) Hypertension: Status: Chronic Assessment and plan: Nicardipine drip has been discontinued Patient will be admitted to the general medicine floor where we will monitor her blood pressure q 1h while awake. She has been on a lower dose of metoprolol @ 25 mg extended release. We will increase to 50mg daily. (2) Amnesia: Status: Acute Assessment and plan: Discussed with teleneurology service. Their working diagnosis is transient global amnesia. They have no concern at this time for stroke due to negative CTA of neck and brain and MRI Will continue observation overnight in the hospital. Hopefully the amnesia will quickly resolve. (3) CAD (coronary artery disease): Status: Chronic Assessment and plan: No presenting signs or symptoms of acute coronary syndrome at this time. (4) Insomnia: Assessment and plan: Continue sleeping aids patient uses as an outpatient (5) GERD (gastroesophageal reflux disease): Assessment and plan: Continue patient's PPI of choice during the hospitalization. History of Present Illness History of Present Illness Chief Complaint: hypertensive urgency, mental status changes, amnesia, Narrative: This is a pleasant 69 YO female with history of hyperlipidemia, CAD and coronary artery dissection, breast cancer (2017) status post bilateral mastectormy and reconstruction who developed mental status changes today with tachycardia and hypertension as well as amnesia. While being evaluated in the Emergency Department, she did not remember if she had a CT scan, did not remember how she came to the hospital or who drove her (her ). She had trouble remembering her wedding anniversary date. She exhibited keen mental acuity, problem solving ability but could not remember many things including how many dogs and cats they have at home. She denied chills, fever, nausea, vomiting, diarrhea, headache, bone or joint pain or change in vision. Her blood pressure in the ED approached 200mmhg and she was placed on a nicardipine drip with reduction of SBP to 150's. CT of brain was negative for intracranial abnormality and CTA of neck and brain showed minimal plaque in the carotid arteries. There was no evidence of occlusive effect. She was evaluated by teleneurology and recommended MRI of brain which was negative for stroke and remarkable only for chronic microvascular ischemic disease. Nicardipine was stopped and SBP has stayed in the 140 range. Teleneurology reviewed the images and established a working diagnosis of transient global amnesia. I was present for the initial teleneurology evalution in the ED. 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) Atypical chest pain (Acute) CAD (coronary artery disease) (Chronic) Medical History Hypertension Vitamin D deficiency GOPI (stress urinary incontinence, female) Insomnia History of postoperative nausea and vomiting GERD (gastroesophageal reflux disease) Breast CA Anxiety disorder prescribed citalopram after her NSTEMI Osteoarthritis of hips, bilateral Infiltrating ductal carcinoma of breast, stage 1 Bilateral - 1999, 2000 Asthma CAD (coronary artery disease) [place] 11/2014, 10/2017 Surgical History Status post right hip replacement History of colonoscopy History of bilateral mastectomy (03/26/17) [place] [place] Breast, Mastectomy Bilateral Bilateral DCIS with reconstructions Family History Other Diabetes Heart disease Hyperlipidemia Hypertension Personal history of malignant neoplasm Social History Smoking/Tobacco Use Status: Former Tobacco Use Quit Date: 10/05/79 Smoking risk assessment performed?: Yes Alcohol Intake: former Year quit: 2017 Details: formerly drank 1 glass of wine w/ dinner 3 to 5 night/wk, abstinent 07/2018 Drug use: Never Substance use type: does not use Household members: spouse current occupation: Retired Current gender identity: female What is your relationship status?: Panel score (0-1 are the most socially isolated patients): 1 What type of physical activity do you participate in: walking and additional Details: stretching Duration: 30-45 minutes/day Frequency: daily Do you feel safe at home: Yes Do you feel safe in your relationship?: Yes Female Reproductive History Menstrual Menopause type: natural History History 2 4 Para 2 Hx # Term Pregnancies 2 Multiple births Hx # Pregnancies Ectopic pregnancies 2 AB induced Hx Number of Living Children AB spontaneous 2 Meds Allergies and Home Medications Allergies Allergy/AdvReac Type Severity Reaction Status Date / Time amoxicillin Allergy Intermediate HIVES Unverified 07/27/24 12:11 Penicillins Allergy Intermediate HIVES Unverified 07/27/24 12:11 cephalexin monohydrate (From Allergy Skin Rash Unverified 07/27/24 12:11 Keflex) codeine (Codeine) AdvReac Mild ABDOMINAL Unverified 07/27/24 12:11 PAIN Home Medications ?Medication ?Instructions ?Recorded ?Confirmed ?Type Womens Multivitamin 1 tab PO DAILY 03/07/13 07/27/24 History albuterol sulfate 90 mcg/actuation 1 puff .Route PRN PRN 08/09/14 07/27/24 History aerosol inhaler vitamin B complex 1 ea PO DAILY 03/04/17 07/27/24 History aspirin 81 mg tablet,delayed 81 mg PO DAILY 11/10/19 07/27/24 History release (Aspir-) nitroglycerin 0.4 mg sublingual 0.4 mg sublingual Q5-15M PRN chest 04/23/20 07/27/24 Rx tablet pain #9 tabs cholecalciferol (vitamin D3) 25 25 mcg PO DAILY 01/03/21 07/27/24 History mcg (1,000 unit) capsule omeprazole 20 mg capsule,delayed 20 mg PO .q3week 01/03/21 07/27/24 History release temazepam 7.5 mg capsule 7.5 mg PO QHS PRN sleep 01/03/21 07/27/24 History metoprolol succinate 25 mg 25 mg PO DAILY 09/04/23 07/27/24 History tablet,extended release 24 hr (Toprol XL) isosorbide dinitrate 10 mg tablet 10 mg PO QHS 12/05/23 07/27/24 History Exam Narrative Exam Narrative: Patient is evaluated in the ED and found to be alert and oriented x 3 and in no acute distress, she is non confabulatory and very pleasant. She cannot remember how she came to the hospital or the events of the day. 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 HEENT: Neck supple, MM pink and moist, conjunctiva non-injected, sclera non- icteric, Pupils equal and reactive to light symmetrically, no JVD, no A waves. No thyromegaly. No carotid bruit CHEST: Bilaterally symmetrical with inspiration and expiration. No use of accessory muscles of respiration. No nasal flaring. RESP: Clear to auscultation bilaterally, no rales, rhonchi or wheeze, no pleural friction rub. COR: RRR no murmur appreciated, normal S1, S2, no rub or gallop ABDOMEN: Soft, non tender diffusely, normally active bowel sounds diffusely, No hepatosplenomegaly, No abdominal bruit, no masses, no tenderness on deep abdominal palpation. G/U: deferred Rectal: deferred MUSCULOSKELETAL: Bilaterally symmetrical, no muscle belly tenderness or mass DERMIS: Skin warm and dry, no ulcers or rashes, EXTREMITIES: No cyanosis, clubbing or edema, no gross deformities of the large or small joints of the upper or lower extremities. Negative Yara's sign, no palpable cords. NEUROLOGICAL: Cranial nerves intact II-XII without notable deficit, No peripheral neurosensory or motor deficits noted. Patient has amnesia to events of the day. LYMPH: No anterior or posterior cervical, no supraclavicular lymphadenopathy. Results Labs 07/27/24 11:30 07/27/24 11:30 Labs: Laboratory Results - last 24 hr 07/27/24 07/27/24 11:30 12:30 WBC 6.09 RBC 4.78 Hgb 14.5 Hct 43.1 MCV 90 MCH 30.3 MCHC 33.6 RDW 13.1 Plt Count 186 MPV 9.8 Immature Gran % 0.2 Neutrophils % 52.8 Lymphocytes % 37.3 Monocytes % 6.9 Eosinophils % 2.1 Basophils % 0.7 Nucleated RBC % 0.0 Absolute Neutrophils 3.22 Absolute Lymphocytes 2.27 Absolute Monocytes 0.42 Absolute Eosinophils 0.13 Absolute Basophils 0.04 Sodium 142 Potassium 3.7 Chloride 105 Carbon Dioxide 27.7 Anion Gap 9.3 BUN 15 Creatinine 0.9 Est GFR (CKD-EPI 2020) 69.64 Glucose 102 Calcium 9.3 Magnesium 1.9 Total Bilirubin 0.51 AST 20 ALT 24 Alkaline Phosphatase 76 Troponin I 6 7 Total Protein 7.5 Albumin 3.6 Last Vital Signs Pulse 93 H 07/27/24 16:30 Resp 16 07/27/24 16:31 BP 161/84 H 07/27/24 16:30 Pulse Ox 95 07/27/24 16:31 Time Spent Time spent with Patient: 55-74 minutes Time was spent: preparing to see the patient(eg.review tests), obtaining and/or reviewing separately otained hiistory, ordering medications,tests, procedures, referring, communicating with other health customer care professional, indepentently interpreting results, counseling the patient and care coordination
[2024-07-27] MEDS: Metoprolol CR 50 MG TABCR 25 MG PO (19:31)
[2024-07-27] MEDS: Normal Saline Flush 10 ML SYR IVP (19:32)
--- NOTE | 2024-07-27 19:54 | W.PC.ACHO ---
Registration Status: Primary Language: Preferred Language: ED Information & Data Chief Complaint CVA/TIA 07/27/24 13:53 Triage Note Last Known Normal 1030 today 07/27/24 11:32 . Reports feeling fuzzy. Spouse and PT report change in short term memory. PT can struggle to keep up with conversation and has been forgetting parts of things she has said in the past 5 minutes. Acute stroke screening not showing any obvious abnormalities. Medical / Surgical History (Last Reviewed 07/27/24 @ 17:02 by Daniele Mcgrath DO) Hypertension Vitamin D deficiency GOPI (stress urinary incontinence, female) Insomnia History of postoperative nausea and vomiting GERD (gastroesophageal reflux disease) Breast CA Anxiety disorder Osteoarthritis of hips, bilateral Infiltrating ductal carcinoma of breast, stage 1 Asthma CAD (coronary artery disease) (Last Reviewed 07/27/24 @ 17:02 by Daniele Mcgrath DO) Status post right hip replacement History of colonoscopy History of bilateral mastectomy (03/26/17) Cervical Procedure Breast, Mastectomy Bilateral Most Recent Vital Signs Temperature 37.0 C 07/27/24 18:02 Temperature Source Temporal Artery Scan 07/27/24 18:02 Pulse 95 H 07/27/24 18:02 Pulse Rhythm Regular 07/27/24 18:28 Pulse 101 H 07/27/24 17:30 Respiratory Rate 18 07/27/24 18:02 Respiratory Effort Normal 07/27/24 18:28 Respiratory Depth Normal 07/27/24 18:28 Respiratory Pattern Normal 07/27/24 18:28 Blood Pressure 140/84 07/27/24 18:02 Blood Pressure Mean 98 07/27/24 17:21 Blood Pressure Position Sitting 07/27/24 11:32 Pulse Oximetry 97 07/27/24 18:02 Oxygen Delivery Method Room Air 07/27/24 18:02 Oxygen Flow Rate 0 07/27/24 18:02 Comment MD aware of BP 07/27/24 16:20 Allergies amoxicillin Allergy (Intermediate, Unverified 07/27/24 12:11) HIVES Penicillins Allergy (Intermediate, Unverified 07/27/24 12:11) HIVES cephalexin monohydrate (From Keflex) Allergy (Unverified 07/27/24 12:11) Skin Rash codeine (Codeine) Adverse Reaction (Mild, Unverified 07/27/24 12:11) ABDOMINAL PAIN Active Medications Generic Name Dose Route Start Last Admin Trade Name Osielq PRN Reason Stop Dose Admin Enoxaparin Sodium 40 mg 07/27/24 18:00 07/27/24 19:31 Enoxaparin 40 Mg/0.4 Ml Syr SC 40 mg Q24H NICOLA Administration Nicardipine HCl 25 mg/ 250 mls @ 50 mls/hr 07/27/24 12:45 07/27/24 15:14 Dextrose/Water IV 0 mg/hr INFUSION NICOLA 0 mls/hr Titration Protocol 5 MG/HR Sodium Chloride 0 ml 07/27/24 20:00 07/27/24 19:32 Normal Saline Flush 10 Ml Syr IVP 10 ml BID NICOLA Administration IV IV Catheter Type [Left Saline Lock Antecubital] IV Catheter Type [Right Saline Lock Antecubital] IV Catheter Gauge [Left 18 Antecubital] IV Catheter Gauge [Right 18 Antecubital] Diet Orders Category Date Time Status Regular/Normal [DIET] Nutrition 07/27/24 Dinner Active Diagnostics 07/27/24 07/27/24 Range/Units 12:30 11:30 WBC 6.09 (4.4-10.8) 10^3/uL RBC 4.78 (3.93-5.22) 10^6/uL Hgb 14.5 (11.2-15.7) g/dL Hct 43.1 (36.0-46.0) % MCV 90 (80-95) fL MCH 30.3 (27.0-33.0) pg MCHC 33.6 (32.0-36.0) % RDW 13.1 (11.7-14.6) % Plt Count 186 (130-400) 10^3/uL MPV 9.8 (8.0-11.0) fL Immature Gran % 0.2 % Neutrophils % 52.8 % Lymphocytes % 37.3 % Monocytes % 6.9 % Eosinophils % 2.1 % Basophils % 0.7 % Nucleated RBC % 0.0 (0.0-0.3) % Absolute Neutrophils 3.22 (1.2-6.7) 10^3/uL Absolute Lymphocytes 2.27 (1.2-3.4) 10^3/uL Absolute Monocytes 0.42 (0.1-0.8) 10^3/uL Absolute Eosinophils 0.13 (0.0-0.7) 10^3/uL Absolute Basophils 0.04 (0.0-0.2) 10^3/uL Sodium 142 (136-145) mmol/L Potassium 3.7 (3.5-5.1) mmol/L Chloride 105 (98-107) mmol/L Carbon Dioxide 27.7 (21.0-32.0) mmol/L Anion Gap 9.3 (3-11) mmol/L BUN 15 (7-18) mg/dL Creatinine 0.9 (0.55-1.02) mg/dL Est GFR (CKD-EPI 2020) 69.64 (mL/min/1.73m2) Glucose 102 (74-106) mg/dL Calcium 9.3 (8.5-10.1) mg/dL Magnesium 1.9 (1.8-2.4) mg/dL Total Bilirubin 0.51 (0.2-1.0) mg/dL AST 20 (15-37) U/L ALT 24 (14-59) U/L Alkaline Phosphatase 76 (46-116) U/L Troponin I 7 6 (<or=51) ng/L Total Protein 7.5 (6.4-8.2) g/dL Albumin 3.6 (3.4-5.0) g/dL [id number] Documentation Fingerstick Glucose Start: 07/27/24 11:29 Freq: .Stat Status: Active Protocol: Activity Type Activity Date Activity User E-sign Co-sign Detail Recorded Client Recorded Date Recorded By Document 07/27/24 11:36 BKG DAEMON(7) [id number] 07/27/24 11:37 BKG DAEMON(8) Intake and Output - 24 Hour Total 07/27/24 11:17 thru 07/27/24 18:28 Intake Total 132.667 Balance 132.667 Weight 79.379 kg Intake: IV 132.667 Falls Risk Assessment History of Falls No History 07/27/24 18:28 Contributing Factors No Factors 07/27/24 18:28 Ambulatory Aids Independent 07/27/24 11:37 Tubes/Lines None 07/27/24 11:37 Gait Evaluation No gait disturbance 07/27/24 11:37 Cognition No cognitive impairment 07/27/24 11:37 Fall Total Score 0 07/27/24 18:28 Level of Risk Standard/Low Risk 07/27/24 18:28 Problems (Last Reviewed 07/27/24 @ 17:02 by Daniele Mcgrath DO) Hypertension (Chronic) Amnesia (Acute) CAD (coronary artery disease) (Chronic) v v v v v v v v v Sending and/or Receiving Nurses: Please use comment section below to note any information pertinent to the patient hand-off not included above. Information / Comments: Per report around 1030 AM pt was having some memory loss and was brought in by her . Pt was tachy with BP in the 200s and put on a Nicardipine drip until SBP reached 140s and it was discontinued. Head CT negative. CTA minimal plaque to carotids. Teleneuro recommended MRI which was negative for stroke. Pt diagnosed with transient global amnesia. Currently A&Ox4, on RA, ambulates steadily. Med rec complete. Report received from: DOREEN MELO AT 0568
--- NOTE | 2024-07-27 19:55 | NUR.NOTE ---
Nursing Note: Pt arrived to unit from ED at 1756, ambulated to the toilet and voided. VSS, no s/sx of distress noted. at bedside during admission assessment. Pt following up with her children about her medication regimen.
[2024-07-27] MEDS: Isosorbide Dinitrate 10 MG TAB PO (20:51)
[2024-07-27] MEDS: Calcium Carbonate *TUMS* 500 MG CHEW PO (21:39)
[2024-07-27] MEDS: Omeprazole 20 MG CAPCR PO (21:39)
[2024-07-28 06:35] LABS: Abs Immature Grans 0.02 10^3/uL (0.0-0.06); Absolute Basophil Count 0.04 10^3/uL (0.0-0.2); Absolute Eosinophil Count 0.21 10^3/uL (0.0-0.7); Absolute Lymphocyte Count 2.44 10^3/uL (1.2-3.4); Absolute Monocyte Count 0.53 10^3/uL (0.1-0.8); Absolute Neutrophil Count 3.69 10^3/uL (1.2-6.7); Basophils % 0.6 %; HCT 38.6 % (36.0-46.0); HGB 13.6 g/dL (11.2-15.7); Immature Grans % 0.3 %; Lymphocytes % 35.2 %; MCH 30.8 pg (27.0-33.0); MCHC 35.2 % (32.0-36.0); MCV 88 fL (80-95); MPV 9.7 fL (8.0-11.0); Monocytes % 7.6 %; Neutrophils % 53.3 %; Platelet Count 177 10^3/uL (130-400); RBC 4.41 10^6/uL (3.93-5.22); RDW 13.2 % (11.7-14.6); WBC 6.93 10^3/uL (4.4-10.8)
[2024-07-28 06:58] LABS: ALT 18 U/L (14-59); AST 12 U/L (15-37); Albumin 3.2 g/dL (3.4-5.0); Alkaline Phosphatase 66 U/L (46-116); Anion Gap 8.7 mmol/L (3-11); BUN 16 mg/dL (7-18); Bilirubin, Total 0.42 mg/dL (0.2-1.0); CO2 26.3 mmol/L (21.0-32.0); CREATININE 0.9 mg/dL (0.55-1.02); Calcium 8.8 mg/dL (8.5-10.1); Chloride 108 mmol/L (98-107); Estimated GFR 69.64 (mL/min/1.73m2); Glucose 99 mg/dL (74-106); Potassium 3.6 mmol/L (3.5-5.1); Sodium 143 mmol/L (136-145); Total Protein 6.6 g/dL (6.4-8.2)
[2024-07-28 07:45] VITALS: BP 124/85; PULSE 73; RESP 16; TEMP 36.7; O2SAT 96
[2024-07-28] MEDS: Vitamins B Comp w/C TAB 1 TAB PO (08:23)
[2024-07-28] MEDS: Aspirin E.C. 81 MG TABEC PO (08:23)
[2024-07-28] MEDS: Multivitamin TAB 1 TAB PO (08:23)
[2024-07-28] MEDS: Cholecalciferol (Vitamin D3) 1,000 UNIT TAB 1000 UNITS PO (08:23)
--- NOTE | 2024-07-28 11:18 | PDOC.CMDIS ---
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 Visits: 1 Answers: Total Score: 7 Risk of Readmission: Low Risk Care Management Discharge Plan Reason for Hospitalization: global amnesia Discharge Plan: Francine was admitted last night through the ED with global amnesia. Her stroke w/u was negative, and her symptoms have cleared. Francine was discharged home with new order for metoprolol and a f/u visit scheduled with her PCP on 08/10/24. She will continue per her prescribed plan of care. She was transported home by her daughter. Patient/Family Education Needs: Review of discharge instructions, activity, limitations, f/u plan and discuss Ask me 3. SDOH Health Related Social Needs: No Data to Display
--- NOTE | 2024-08-25 09:00 | DSE_ITS ---
Date of service: 07/28/24 Time of Service: 17:00 DS: Diagnosis Discharge Diagnosis (1) Hypertension: Status: Chronic (2) Amnesia: Status: Resolved (3) CAD (coronary artery disease): Status: Chronic (4) Insomnia: (5) GERD (gastroesophageal reflux disease): Discharge Plan Disposition Patient Disposition: Home Condition: Good Discharge Details Reason For Visit: TIA, Amnesia, Hypertensive urgency Admit Date/Time: 07/27/24 16:30 Admit Provider: Daniele Mcgrath Attending Provider: Daniele Mcgrath Primary Care Provider: Cheri Montelongo Hospital Course Hospital Course: Patient initially presented with signs and symptoms concerning for memory loss and possible CVA though patient had negative CT and MRI. Additionally, she had hypertensive emergency and was on nicardipine drip but was discontinued and remained with stable blood pressure with an increase of home dose of metoprolol from 25-50 daily. Additionally, patient was seen by teleneurology and her memory loss was determined to be secondary to transient global amnesia which is since resolved. At which time was determined the patient was stable for discharge home. Home Meds and New Rx's Prescriptions: Continued cholecalciferol (vitamin D3) 25 mcg (1,000 unit) capsule 25 mcg PO DAILY temazepam 7.5 mg capsule 7.5 mg PO QHS PRN (Reason: sleep) Womens multivitamin 1 tab PO DAILY vitamin B complex 1 EACH capsule 1 ea PO DAILY nitroglycerin 0.4 mg tablet, sublingual 0.4 mg SL Q5-15M PRN (Reason: chest pain) Qty: 9 12RF Rx Instructions: until response; do not exceed 3 doses per episode albuterol sulfate 8.5 GM HFA aerosol inhaler 1 puff .Route PRN PRN omeprazole 20 mg capsule,delayed release(DR/EC) 20 mg PO .q3week Patient Comments: Pt takes 3x per week isosorbide dinitrate 10 mg tablet 10 mg PO QHS Rx Instructions: allow nitrate-free interval of 12-14 hrs per 24-hr period aspirin [Aspir-81] 81 mg tablet,delayed release (DR/EC) 81 mg PO DAILY Changed metoprolol succinate [Toprol XL] 25 mg tablet extended release 24 hr 50 mg PO DAILY Qty: 0 0RF Discharge Instructions Stand Alone Forms: Nursing Discharge Form Referrals: Cheri Montelongo [Primary Care Provider] - 08/10/24 11:30 am Activity:: Activity as Tolerated Equipment/Supplies:: No Equipment Needed Diet:: As Tolerated Discharge Orders Discharge Orders: Discharge Order (Routine); Ordered 07/28/24 Ordered By: Sheldon Stubbs Discharge Data Discharge Date/Time-TO BE ENTERED AT DEPARTURE: 07/28/24 10:58 DS: Summary Time Spent with Patient providing and/or coordinating discharge services: Greater than 30 minutes Status at Discharge Functional status at discharge: independent ambulation Overall status at discharge: patient is back to baseline Mental Status: mental status grossly normal Speech and Movement: speech and movement normal Mood: congruent mood Affect: normal affect Quality:SDOH Health Related Social Needs: No Data to Display Exam Narrative Exam Narrative: well appearing female sitting up in the chair in no acute distress, AOx4, heart RRR, lungs CTAB, abdomen soft, non-tender, non-distended, CN II-XII intact, normal sensation and strength in bilateral upper and lower extremities Psych Mental Status: mental status grossly normal Speech and Movement: speech and movement normal Mood: congruent mood Affect: normal affect DS: Data Vitals/I&O Vitals and I&O: Vital Signs Temperature 98.1 F 07/28/24 07:45 Temperature Source Skin 07/28/24 07:45 Pulse 73 07/28/24 07:45 Pulse Rhythm Regular 07/27/24 18:28 Pulse 101 H 07/27/24 17:30 Respiratory Rate 16 07/28/24 07:45 Respiratory Effort Normal 07/27/24 18:28 Respiratory Depth Normal 07/27/24 18:28 Respiratory Pattern Normal 07/27/24 18:28 Blood Pressure 124/85 07/28/24 07:45 Blood Pressure Mean 98 07/27/24 17:21 Blood Pressure Position Sitting 07/27/24 11:32 Pulse Oximetry 96 07/28/24 07:45 Oxygen Delivery Method Room Air 07/28/24 07:45 Oxygen Flow Rate 0 07/28/24 07:45 Pain Level 0 07/28/24 08:05 Comment MD aware of BP 07/27/24 16:20 PFSH All Active Problems (Updated 07/29/24 @ 00:04 by TOÑITO CHINO) Hypertension (Chronic) Diplopia (Acute) Vertigo (Acute) Colon cancer screening (Acute) Spontaneous dissection of coronary artery (Acute) Basal cell carcinoma, face (Acute) Facial skin lesion (Acute) Strain of hip adductor muscle (Acute) Status post total replacement of right hip (Chronic ~02/17/19) Anxiety (Acute 03/07/13) 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) Atypical chest pain (Acute) CAD (coronary artery disease) (Chronic) Medical History Hypertension Vitamin D deficiency GOPI (stress urinary incontinence, female) Insomnia History of postoperative nausea and vomiting GERD (gastroesophageal reflux disease) Breast CA Anxiety disorder prescribed citalopram after her NSTEMI Osteoarthritis of hips, bilateral Infiltrating ductal carcinoma of breast, stage 1 Bilateral - 1999, 2000 Asthma CAD (coronary artery disease) [place] 11/2014, 10/2017 Surgical History Status post right hip replacement History of colonoscopy History of bilateral mastectomy (03/26/17) Cervical Procedure [facility] 2001 [[facility] [place] ? LEEP Breast, Mastectomy Bilateral Bilateral DCIS with reconstructions Family History Other Diabetes Heart disease Hyperlipidemia Hypertension Personal history of malignant neoplasm Social History Smoking/Tobacco Use Status: Former Tobacco Use Quit Date: 10/05/79 Smoking risk assessment performed?: Yes Alcohol Intake: former Year quit: 2017 Details: formerly drank 1 glass of wine w/ dinner 3 to 5 night/wk, abstinent 07/2018 Drug use: Never Substance use type: does not use Household members: spouse Housing: house current occupation: Retired Current gender identity: female What is your relationship status?: Panel score (0-1 are the most socially isolated patients): 1 What type of physical activity do you participate in: walking and additional Details: stretching Duration: 30-45 minutes/day Frequency: daily Do you feel safe at home: Yes Do you feel safe in your relationship?: Yes Female Reproductive History Menstrual Menopause type: natural History History 4 Para 2 Hx # Term Pregnancies 2 Multiple births Hx # Pregnancies Ectopic pregnancies 2 AB induced Hx Number of Living Children AB spontaneous 2 Time Spent with Patient Time Spent with Patient: <45 minutes Time was spent: preparing to see the patient(eg.review tests), obtaining and/or reviewing separately otained hiistory, ordering medications,tests, procedures, referring, communicating with other health day care worker, indepentently interpreting results, counseling the patient and care coordination
== END 2024-07-28 10:58 | disposition home or self-care (01) ==
LOC: ER 16:15 → MS 17:52
PROVIDERS: Admitting Provider Internal Medicine; Emergency Provider Student in an Organized Health Care Education/Training Program; PCP Family Medicine; Visit Provider Internal Medicine
DX: I25.10 Atherosclerotic heart disease of native coronary artery without angina pectoris; I10 Essential (primary) hypertension; K21.9 Gastro-esophageal reflux disease without esophagitis; G45.4 Transient global amnesia; G47.00 Insomnia, unspecified; E78.5 Hyperlipidemia, unspecified; Z85.3 Personal history of malignant neoplasm of breast; R00.0 Tachycardia, unspecified; I67.9 Cerebrovascular disease, unspecified; F41.9 Anxiety disorder, unspecified; Z96.641 Presence of right artificial hip joint; E55.9 Vitamin D deficiency, unspecified; I25.2 Old myocardial infarction
CPT/HCPCS: 00123; 36415; 36416; 70496; 70498; 80053; 82962; 93005; 99285; J1650; 70450; 70551; 83735; 84484; 85025; 93010; 99222; G0378; J2404

== ENCOUNTER 2024-09-26 08:36 | Emergency (ER) | payer OTHER, SELFPAY ==
[2024-09-26] VITALS (13 sets, daily range): BP systolic 128–181; BP diastolic 68–92; PULSE 66–75; RESP 9–20; TEMP 36.5–36.7; O2SAT 97–100
--- NOTE | 2024-09-26 08:45 | DI.RAD_ITS ---
Exam(s) XR CHEST 2V PA LATERAL EXAM: XR CHEST 2V PA LATERAL CLINICAL HISTORY: SOB, cough, hx asthma. Eval PNA TECHNIQUE: 2D digital imaging was performed. Two views. COMPARISON: No exams were available for comparison FINDINGS: HEART: Normal size. Aorta: Not dilated. PULMONARY VASCULATURE: Normal. MEDIASTINUM: Unremarkable. LUNGS: Clear. PLEURAL SPACE: No pleural effusion or pneumothorax. BONE:Unremarkable for age. SOFT TISSUES: Unremarkable. IMPRESSION: No acute abnormality. DATA REPOSITORY: RADIATION DOSE DELIVERED:
--- NOTE | 2024-09-26 09:08 | ED.GENADUL_ITS ---
Discharge Plan Disposition Patient Disposition: Home Condition: Stable Discharge Details Clinical Impression: Upper respiratory infection, viral, Asthma exacerbation Primary Care Provider: Cheri Montelongo ED Provider: Carolyn Conner Home Meds and New Rx's Prescriptions: No Action cholecalciferol (vitamin D3) 25 mcg (1,000 unit) capsule 25 mcg PO DAILY temazepam 7.5 mg capsule 7.5 mg PO QHS PRN (Reason: sleep) Womens multivitamin 1 tab PO DAILY vitamin B complex 1 EACH capsule 1 ea PO DAILY nitroglycerin 0.4 mg tablet, sublingual 0.4 mg SL Q5-15M PRN (Reason: chest pain) Qty: 9 12RF Rx Instructions: until response; do not exceed 3 doses per episode albuterol sulfate 8.5 GM HFA aerosol inhaler 1 puff .Route PRN PRN omeprazole 20 mg capsule,delayed release(DR/EC) 20 mg PO .q3week Patient Comments: Pt takes 3x per week isosorbide dinitrate 10 mg tablet 10 mg PO QHS Rx Instructions: allow nitrate-free interval of 12-14 hrs per 24-hr period Asmanex Twisthaler 220 mcg/ actuation (120) aerosol powdr breath activated 2 inh INHALATION BID fluticasone propionate [24 Hour Allergy Relief] 50 mcg/actuation spray,suspension 1 spray intranasal DAILY PRN Rx Instructions: administer into each nostril aspirin [Aspir-81] 81 mg tablet,delayed release (DR/EC) 81 mg PO DAILY metoprolol succinate [Toprol XL] 25 mg tablet extended release 24 hr 50 mg PO DAILY Qty: 0 0RF Patient Comments: pt states now taking 75mg Discharge Instructions Instructions: Asthma, Adult ED Additional Instructions: You were seen in the emergency department today for evaluation of shortness of breath, cough, which is concerning for viral upper respiratory infection and an exacerbation of your asthma. In our department you had a full physical examination performed, received a duo nebulizer treatment as well as your day for dose of steroids. You had a negative COVID and influenza test, and an x-ray that did not show any signs of pneumonia or other abnormality to explain your symptoms. It is safe for you to go home and continue your metered-dose inhaler, and I have provided you with your last dose of steroids which you should take tomorrow (09/27/2024). Please follow-up with your primary care provider in the next few days to discuss this visit and any symptoms that change, worsen, or persist. Thank you for allowing us to be part of your care. Discharge Data Discharge Date/Time-TO BE ENTERED AT DEPARTURE: 09/26/24 10:38 HPI General Mode of arrival: ambulatory . Date/Time Provider Initiated Documentation: 09/26/24 08:44 . Limitations to Documentation: no limitations . Information obtained by: patient, family and old records reviewed . HPI Narrative: HPI: This is a 69-year-old female patient with a past medical history significant for hypertension, history of coronary artery dissection/CAD, and a history of asthma that has been previously well-managed, presenting for evaluation of shortness of breath. The patient has had approximately 2 weeks of an upper respiratory infection, and states that for the last year or so she has had exacerbations of her asthma in the context of winter illnesses. When she got sick she started taking her inhalers again, and has taken 3 days of prednisone which she had leftover from a prior illness. Last dose yesterday. She presents for care today with ongoing shortness of breath that prevents her from sleeping. She has not noted any fevers or chills, has been able to eat and drink and has no concerns for her hydration. She tries to avoid excessive albuterol use given her cardiac history. Patient is not currently experiencing chest pain. Exam: Gen: Awake and alert, in no apparent distress HEENT: Non-icteric sclera, no conjunctival injection. Posterior pharynx without erythema, exudate, asymmetry Neck: Supple Lungs: No apparent respiratory distress, normal respiratory effort. Lung sounds are clear and equal bilaterally, with a mildly prolonged expiratory phase but no significant wheezing CV: Appears well perfused, heart with regular rate and rhythm, no murmurs auscultated Abdomen: Non-distended MSK: Moves 4 extremities without apparent limitation in ROM Skin: Visualized skin without rashes, cyanosis. Neuro: Normal Gait, no obvious focal deficits or facial asymmetry. Speaks in full, clear sentences. Psych: Appropriate for situation. MDM: This is a 69-year-old female patient presenting for evaluation of shortness of breath and cough. My differential includes but is not limited to URI, pneumonia, bronchitis, viral upper respiratory infection. The patient is not experiencing chest pain to increase my concern for ACS. She has no evidence of fluid overload on physical examination to suggest pulmonary edema, pleural effusion. In shared decision-making conversation with the patient regarding the extent of workup, and she is desiring of avoiding anything invasive. We will obtain a COVID and flu test, as well as an x-ray. I will provide the patient with a dose of prednisone as well as a duo nebulizer treatment for her asthma symptoms. ED Course: COVID and influenza testing was negative, chest x-ray shows no evidence of pneumonia or other intrapulmonary abnormalities that might account for her symptoms. The patient did endorse improvement in her work of breathing after duo nebulizer treatment, and I provided her with 1 dose of prednisone to be taken tomorrow to complete her prednisone burst. At this time, the patient has had a full medical evaluation and is safe for discharge to home. They are hemodynamically stable, ambulatory, and tolerating PO. They are understanding of the follow-up plan and return precautions. They left our facility without incident. Carloyn Conner MD Related Data Home Medications ?Medication ?Instructions ?Recorded ?Confirmed Womens Multivitamin 1 tab PO DAILY 03/07/13 09/26/24 albuterol sulfate 90 mcg/actuation 1 puff .Route PRN PRN 08/09/14 09/26/24 aerosol inhaler vitamin B complex 1 ea PO DAILY 03/04/17 09/26/24 aspirin 81 mg tablet,delayed 81 mg PO DAILY 11/10/19 09/26/24 release (Aspir-) nitroglycerin 0.4 mg sublingual 0.4 mg sublingual Q5-15M PRN chest 04/23/20 09/26/24 tablet pain #9 tabs cholecalciferol (vitamin D3) 25 25 mcg PO DAILY 01/03/21 09/26/24 mcg (1,000 unit) capsule omeprazole 20 mg capsule,delayed 20 mg PO .q3week 01/03/21 09/26/24 release temazepam 7.5 mg capsule 7.5 mg PO QHS PRN sleep 01/03/21 09/26/24 isosorbide dinitrate 10 mg tablet 10 mg PO QHS 12/05/23 09/26/24 metoprolol succinate 25 mg 50 mg (2 x 25 mg) PO DAILY #0 tabs 07/28/24 09/26/24 tablet,extended release 24 hr (Toprol XL) fluticasone propionate 50 1 spray intranasal DAILY PRN 09/26/24 09/26/24 mcg/actuation nasal spray,suspension (24 Hour Allergy Relief) mometasone 220 mcg/actuation(120 2 inh inhalation BID 09/26/24 09/26/24 doses)breath activated powder inhaler (Asmanex Twisthaler) Previous Rx's ?Medication ?Instructions ?Recorded nitroglycerin 0.4 mg sublingual 0.4 mg sublingual Q5-15M PRN chest 04/23/20 tablet pain #9 tabs metoprolol succinate 25 mg 50 mg (2 x 25 mg) PO DAILY #0 tabs 07/28/24 tablet,extended release 24 hr (Toprol XL) Allergies Allergy/AdvReac Type Severity Reaction Status Date / Time amoxicillin Allergy Intermediate HIVES Unverified 09/26/24 08:44 Penicillins Allergy Intermediate HIVES Unverified 09/26/24 08:44 cephalexin monohydrate (From Allergy Skin Rash Unverified 09/26/24 08:44 Keflex) codeine (Codeine) AdvReac Mild ABDOMINAL Unverified 09/26/24 08:44 PAIN General Stated Complaint: RespSymp LAKHWINDER: 3 Course Vital Signs Vital signs: Vital Signs Temperature 36.7 C 09/26/24 08:41 Pulse 72 09/26/24 08:41 Respiratory Rate 20 09/26/24 08:41 Blood Pressure 181/75 H 09/26/24 08:41 Pulse Oximetry 100 09/26/24 08:41 Temperature 36.7 C 09/26/24 08:41 Temperature Source Oral 09/26/24 08:41 Pulse 69 09/26/24 08:41 Respiratory Rate 20 09/26/24 08:41 Blood Pressure 181/75 H 09/26/24 08:41 Blood Pressure Mean 110 09/26/24 08:41 Blood Pressure Position Sitting 09/26/24 08:41 Pulse Oximetry 100 09/26/24 08:42 Oxygen Delivery Method Room Air 09/26/24 08:41 Oxygen Flow Rate 0 09/26/24 08:41 Pain Level 0 09/26/24 08:41 Lab/Test Results Lab/Test Results: Laboratory Tests Range/Units 09/26/24 08:55 COVID-19 Source Cancelled SARS-CoV-2 (PCR) Cancelled Influenza Type A (PCR) Cancelled Influenza Type B (PCR) Cancelled RSV (PCR) Cancelled Medical Decision Making Quality:SDOH Health Related Social Needs: No Data to Display PFSH All Active Problems (Updated 09/26/24 @ 10:23 by Carolyn Conner MD) Asthma exacerbation (Acute) Upper respiratory infection, viral (Acute) Skin cancer screening (Acute) Hypertension (Chronic) Diplopia (Acute) Vertigo (Acute) Colon cancer screening (Acute) Spontaneous dissection of coronary artery (Acute) Basal cell carcinoma, face (Acute) Facial skin lesion (Acute) Strain of hip adductor muscle (Acute) Status post total replacement of right hip (Chronic ~02/17/19) Anxiety (Acute 03/07/13) 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) Atypical chest pain (Acute) CAD (coronary artery disease) (Chronic) Medical History (Updated 09/26/24 @ 10:23 by Carolyn Conner MD) History of basal cell carcinoma Hypertension Vitamin D deficiency GOPI (stress urinary incontinence, female) Insomnia History of postoperative nausea and vomiting GERD (gastroesophageal reflux disease) Breast CA Anxiety disorder prescribed citalopram after her NSTEMI Osteoarthritis of hips, bilateral Infiltrating ductal carcinoma of breast, stage 1 Bilateral - 1999, 2000 Asthma CAD (coronary artery disease) [place] 11/2014, 10/2017 Surgical History (Updated 09/24/24 @ 00:01 by TOÑITO CHINO) Status post right hip replacement History of colonoscopy History of bilateral mastectomy (03/26/17) Cervical Procedure [facility]IL 2001 [[facility] [place] ? LEEP Breast, Mastectomy Bilateral Bilateral DCIS with reconstructions Family History Other Diabetes Heart disease Hyperlipidemia Hypertension Personal history of malignant neoplasm Social History Smoking/Tobacco Use Status: Former Tobacco Use Quit Date: 10/05/79 Smoking risk assessment performed?: Yes Alcohol Intake: former Year quit: 2017 Details: formerly drank 1 glass of wine w/ dinner 3 to 5 night/wk, abstinent 07/2018 Drug use: Never Substance use type: does not use Household members: spouse Housing: house current occupation: Retired Current gender identity: female What is your relationship status?: Panel score (0-1 are the most socially isolated patients): 1 What type of physical activity do you participate in: walking and additional Details: stretching Duration: 30-45 minutes/day Frequency: daily Do you feel safe at home: Yes Do you feel safe in your relationship?: Yes Female Reproductive History Menstrual Menopause type: natural History History 4 Para 2 Hx # Term Pregnancies 2 Multiple births Hx # Pregnancies Ectopic pregnancies 2 AB induced Hx Number of Living Children AB spontaneous 2
[2024-09-26] MEDS: Albuterol/Ipratropium 3 ML UPD VIAL UPD (09:16)
[2024-09-26] MEDS: predniSONE 20 MG TAB 60 MG PO ×2 (09:17→10:37)
== END 2024-09-26 10:38 | disposition home or self-care (01) ==
PROVIDERS: Emergency Provider Emergency Medicine; PCP Family Medicine
DX: J06.9 Acute upper respiratory infection, unspecified; J45.901 Unspecified asthma with (acute) exacerbation; I10 Essential (primary) hypertension; I25.10 Atherosclerotic heart disease of native coronary artery without angina pectoris; Z79.899 Other long term (current) drug therapy; Z79.82 Long term (current) use of aspirin
CPT/HCPCS: 87426; 87637; 94640; 99283; 71046; 99284; J7512; J7620

== ENCOUNTER 2024-11-25 15:28 | Outpatient (REF) | payer OTHER, SELFPAY ==
--- NOTE | 2024-11-25 11:55 | SKI_PTH ---
PATIENT: Francine Borges LOC: [facility] U#:[id number] AGE/SX: 69/F ROOM: RE11/25/[address]: Kermit Matamoros DO : 1955 BED: DIS: 11/25/2024 SPEC #: [id number] RECD: 11/25/24 16:55 STATUS: [place]ON REQ #: [id number] DEDRICK: 11/25/24 11:[address]: Kermit Matamoros DEPT: Surgical Specimen RECD BY: Molly Eckert ENTERED: 11/25/24 16:56 SP TYPE: ANSLEY MARROQUIN DR: Cheri Montelongo Tissues: 1 - SKIN BIOPSY(SHAVE/PUNCH) Procedures: SKIN LEVEL 4 Comments: [id number]
== END 2024-11-25 15:29 | disposition home or self-care (01) ==
LOC: LBN 15:28
PROVIDERS: PCP Family Medicine; Visit Provider Otolaryngology Otolaryngology/Facial Plastic Surgery
DX: C44.92 Squamous cell carcinoma of skin, unspecified (principal); L98.9 Disorder of the skin and subcutaneous tissue, unspecified; C44.310 Basal cell carcinoma of skin of unspecified parts of face
CPT/HCPCS: 88305